=== PATIENT | male | born 1935 | race Caucasian/White ===

== ENCOUNTER 2018-07-18 18:28 | Inpatient (IN) | payer OTHER, MEDICARE ==
--- OUTSIDE RECORDS SUMMARY | 2018-07-18 18:31 | XMS REPORT | Continuity of Care Document ---
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/18/2012 chamber pacemaker 12 [facility] pulse generator Replacement of Active 07/14/20 Problem 07/18/2012 pacemaker pulse 12 [facility] generator Insertion of dual Active 07/14/20 Problem 10/02/2016 chamber pacemaker 12 [facility] pulse generator Replacement of Active 07/14/20 Problem 10/02/2016 pacemaker pulse 12 [facility] generator [place], Active 09/07/19 VFIB, CAD, 12 [facility] BRADYCARDIA Atrial Active Problem 07/18/2012 fibrillation [facility] CAD - Coronary Active Problem 07/18/2012 artery disease [facility] DM - Diabetes Active Problem 07/18/2012 mellitus [facility] HTN - Active Problem 07/18/2012 Hypertension [facility] Hyperlipidemia Active Problem 07/18/2012 [facility] [place] Myocardial Active Problem 07/18/2012 infarction [facility] [place] - Ventricular Active Problem 07/18/2012 tachycardia [facility] Afib Active Problem 10/02/2016 [facility] [place]rial Active Problem 10/02/2016 fibrillation [facility] CAD - Coronary Active Problem 10/02/2016 artery disease [facility] CHF (<span Active Problem 10/02/2016 MH ID="[id number]" [facility] >Confirmed</span> ) Diabetes Active Problem 10/02/2016 [facility] [place] - Diabetes Active Problem 10/02/2016 mellitus [facility] HTN - Active Problem 10/02/2016 Hypertension [facility] Hyperlipidemia Active Problem 10/02/2016 [facility] [place] HLD (<span Resolved Problem 10/02/2016 MH ID="[id number]" [facility] >Confirmed</span> ) HTN (<span Active Problem 10/02/2016 MH ID="[id number]" [facility] >Confirmed</span> ) [place] - Myocardial Active Problem 10/02/2016 infarction [facility] [place] (<span Active Problem 10/02/2016 MH ID="[id number]" [facility] >Confirmed</span> ) [place] - Ventricular Active Problem 10/02/2016 tachycardia [facility] MUSCLE WEAKNESS Active (GENERALIZED) [facility] WEAKNESS Active [facility] [place] FTNG AUTMTC Active DFIBRILLATOR [facility] VENTRICULAR Active MH FIBRILLATION [facility] COR ATH UNSP VSL Active NTV/GRF [facility] PERSISTENT ATRIAL Active FIBRILLATION [facility] Medications Medication Details Route Status Patient Ordering Order Source Instructions Provider Date acetaminophen 325 mg=1 tab, PO, Active 325 mg oral Q4-6H, PRN Pain, 2016 [facility] tablet X 10 day, # 120 tab, 0 Refill(s), given to patient rivaroxaban 20 20 mg=1 tab, PO, Active mg oral tablet QPM, 0 Refill(s) 2016 [facility] Insulin, 4 unit, SUB-Q, Active Aspart, Human Bedtime, PRN 2016 [facility] Blood Glucose Results, 0 Refill(s) aspirin 81 mg 81 mg=1 tab, PO, Active tablet, enteric Daily, 0 2016 [facility] coated Refill(s) captopril 50 mg 50 mg=1 tab, PO, Active oral tablet TID, 0 Refill(s) 2016 [facility] aspirin 81 mg 81 mg, 1 tab, No Longer tablet, enteric Route: PO, Drug Active 2016 [facility] coated form: ECTAB, Daily, Dosing Weight 84.091, kg, Start date: 09/27/16 9:00:00 BLENDER, Duration: 30 day, Stop date: 10/26/16 9:00:00 CSTNotes: Do not crush or chew. (Same As: Ecotrin) Xarelto 20 mg, 1 tab, No Longer Route: PO, Drug Active 2016 [facility] form: TAB, QPM, Dosing Weight 84.091, kg, first dose now, Start date: 09/26/16 19:00:00 BLENDER, Duration: 30 day, Stop date: 10/26/16 17:00:00 CSTNotes: (Same as: Xarelto) Administer with food Insulin, 1 unit, 0.01 mL, No Longer Aspart, Human Route: SUB-Q, Active 2016 [facility] Drug form: SOLN, Bedtime, Dosing Weight 84.091, kg, PRN Blood Glucose Results, Start date: 09/26/16 17:21:00 BLENDER, Duration: 30 day, Stop date: 10/26/16 17:20:00 CSTNotes: Roll in palms of hands gently; Do not shake vigorously. (Same as: NovoLOG) "single patient use only" WASTE: F/P - Black; E - Municipal Trash Bin Stable for 28 days at room temperature. Expires in days from Dat e Glucagon 1 mg, Route: IM, No Longer Drug form: Active 2016 [facility] PDR/INJ, PRN, Dosing Weight 84.091, kg, PRN Blood Glucose Results, Start date: 09/26/16 17:21:00 BLENDER, Duration: 30 day, Stop date: 10/26/16 17:20:00 BLENDER Dextrose 50% 25 gm, 50 mL, No Longer Syringe Route: IVP, Drug Active 2016 [facility] Form: INJ, Dosing Weight 84.091, kg, PRN, PRN Blood Glucose Results, Start date: 09/26/16 17:21:00 BLENDER, Duration: 30 day, Stop date: 10/26/16 17:20:00 BLENDER Minocycline 100 mg, 1 cap, No Longer Route: PO, Drug Active 2016 [facility] form: CAP, [id number], Dosing Weight 84.091, kg, Start date: 09/26/16 13:00:00 BLENDER, Duration: 7 day, Stop date: 10/03/16 1:00:00 CSTNotes: (Same as:Minocin) No milk/antacids/iro n. Vancomycin 1,000 mg, Route: Inactive IVPB, [id number], 2016 [facility] Dosing Weight 84.091, kg, Start date: 09/26/16 5:00:00 BLENDER, Duration: 30 day, Stop date: 10/25/16 17:00:00 CSTNotes: TIME CRITICAL MEDICATION (Same As: Vancocin) Infusion rate 2001 mg: infuse over 2.5 hours MEDICATION WASTE Product Size: 1000 mg Product Wasted: ___ mg digoxin 250 mcg 0.25 mg, 1 tab, No Longer (0.25 mg) oral Route: PO, Drug Active 2016 [facility] tablet form: TAB, [id number], Dosing Weight 84.091, kg, 4 doses., Start date: 09/25/16 21:00:00 BLENDER, Duration: 4 doses or times, Stop date: 09/26/16 21:00:00 CSTNotes: Take on an Empty Stomach (Same as: Lanoxin) Coreg 12.5 mg, Route: Inactive PO, Drug form: 2016 [facility] TAB, Q12H, Dosing Weight 84.091, kg, Start date: 09/25/16 21:00:00 BLENDER, Duration: 30 day, Stop date: 10/25/16 9:00:00 BLENDER digoxin 0.5 mg, 1 tab, Inactive Route: PO, Drug 2016 [facility] form: TAB, Q6Hnow, Start date: 09/25/16 21:00:00 BLENDER, Duration: 4 doses or times, Stop date: 09/26/16 15:00:00 CSTNotes: Take on an Empty Stomach (Same as: Lanoxin) Amiodarone 300 mg, Route: Inactive IV, ONCE, Dosing 2016 [facility] Weight 84.091, kg, Start date: 09/25/16 13:31:00 BLENDER, Stop date: 09/25/16 13:31:00 BLENDER MaxEPA 1 gm, 1 cap, No Longer Route: PO, Drug Active 2016 [facility] form: CAP, Daily, Start date: 09/25/16 9:00:00 BLENDER, Duration: 30 day, Stop date: 10/24/16 9:00:00 CSTNotes: (Same as: MaxEPA, [place] 3 fish oil ) Non-Formulary Drug Protonix 40 mg, 1 tab, No Longer Route: PO, Drug Active 2016 [facility] form: ECTAB, Daily, Start date: 09/25/16 9:00:00 BLENDER, Duration: 30 day, Stop date: 10/24/16 9:00:00 CSTNotes: Tablet should not be chewed or crushed. (Same as: Protonix) Omeprazole 20 mg, Route: PO, No Longer Drug form: DRC, Active 2016 [facility] Daily, Dosing Weight 84.091, kg, Start date: 09/25/16 9:00:00 BLENDER, Duration: 30 day, Stop date: 10/24/16 9:00:00 BLENDER Fish Oil 1,200 mg, Route: No Longer PO, Drug form: Active 2016 [facility] CAP, Daily, Dosing Weight 84.091, kg, Start date: 09/25/16 9:00:00 BLENDER, Duration: 30 day, Stop date: 10/24/16 9:00:00 BLENDER glimepiride 2 mg, 1 tab, No Longer Route: PO, Drug Active 2016 [facility] form: TAB, Breakfast, Dosing Weight 84.091, kg, Start date: 09/25/16 8:00:00 BLENDER, Duration: 30 day, Stop date: 10/24/16 8:00:00 CSTNotes: (Same as: Amaryl) Lovastatin 40 mg, Route: PO, Inactive Drug form: TAB, 2016 [facility] Bedtime, Dosing Weight 84.091, kg, Start date: 09/24/16 21:00:00 BLENDER, Duration: 30 day, Stop date: 10/23/16 21:00:00 BLENDER Lipitor 20 mg, 1 tab, No Longer Route: PO, Drug Active 2016 [facility] form: TAB, Bedtime, Start date: 09/24/16 21:00:00 BLENDER, Duration: 30 day, Stop date: 10/23/16 21:00:00 CSTNotes: (Same As: Lipitor) Lovenox 80 mg, 0.8 mL, No Longer Route: SUB-Q, Active 2016 [facility] Drug form: INJ, [id number], Dosing Weight 84.091, kg, For CrCL Notes: Nurse to ensure documentation of patient education per anticoagulation policy. (Same as: Lovenox) Ranexa 500 mg, 1 tab, No Longer Route: PO, Drug Active 2016 [facility] form: TAB, BID, Dosing Weight 84.091, kg, Start date: 09/24/16 19:38:00 BLENDER, Duration: 30 day, Stop date: 10/24/16 17:00:00 CSTNotes: Same as Ranexa "Do Not Crush" carvedilol 6.25 mg, 1 tab, No Longer Route: PO, Drug Active 2016 [facility] form: TAB, BID, Dosing Weight 84.091, kg, Start date: 09/24/16 19:38:00 BLENDER, Duration: 30 day, Stop date: 10/24/16 17:00:00 CSTNotes: Give with food. (Same As: Coreg) Amiodarone 200 mg, 1 tab, No Longer Route: PO, Drug Active 2016 [facility] form: TAB, BID, Dosing Weight 84.091, kg, Start date: 09/24/16 19:37:00 BLENDER, Duration: 30 day, Stop date: 10/24/16 17:00:00 CSTNotes: (Same as: Cordarone) Captopril 50 mg, 1 tab, No Longer Route: PO, Drug Active 2016 [facility] form: TAB, TID, Dosing Weight 84.091, kg, Start date: 09/24/16 19:37:00 BLENDER, Duration: 30 day, Stop date: 10/24/16 17:00:00 CSTNotes: Give on empty stomach. 1 hour before meal. (Same As: Capoten) Nitroglycerin 0.4 mg, 1 tab, No Longer 0.4 MG Route: SL, Drug Active 2016 [facility] Sublingual form: TAB, Q5Min, Tablet Dosing Weight 84.091, kg, PRN Chest Pain, Start date: 09/24/16 19:18:00 BLENDER, Duration: 30 day, Stop date: 10/24/16 19:17:00 CSTNotes: (Same as:Nitroquick, Nitrostat) "Do Not Crush" Sublingual tablet glimepiride 2 2 mg=1 tab, PO, No Longer mg oral tablet Breakfast, # 30 Active 2016 [facility] tab, 0 Refill(s) Nitroglycerin 0.4 mg=1 tab, SL, Active 0.4 MG Q5Min, PRN Chest 2016 [facility] Sublingual pain, Give up to Tablet 3 doses. Call 911 if pain persists., # 100 tab, 0 Refill(s) sotalol 240 mg 240 mg=1 tab, PO, Inactive oral tablet Daily, # 180 tab, 2017 [facility] 0 Refill(s) lovastatin 40 40 mg=1 tab, PO, Active mg oral tablet Bedtime, # 30 2017 [facility] tab, 0 Refill(s) Ranexa 500 mg, PO, BID, Active 0 Refill(s) 2016 [facility] captopril 50 mg 50 mg=1 tab, PO, No Longer oral tablet TID, # 60 tab, 0 Active 2016 [facility] Refill(s) Fish Oil 1200 1,200 mg=1 cap, Active mg oral capsule PO, Daily, 0 2017 [facility] Refill(s) rivaroxaban 20 20 mg=1 tab, PO, Inactive MG Oral Tablet QPM, # 30 tab, 3 2017 [facility] [Xarelto] Refill(s) omeprazole 20 20 mg=1 cap, PO, Active mg oral delayed Daily, # 30 cap, 2017 [facility] release capsule 0 Refill(s) carvedilol 6.25 6.25 mg=1 tab, Active mg oral tablet PO, BID, # 180 2017 [facility] tab, 0 Refill(s) Morphine 2 mg, 0.5 mL, No Longer Route: IVP, Drug Active 2016 [facility] form: SOLN, Q4H, Dosing Weight 98.182, kg, PRN Pain Score 7-10, Start date: 09/24/16 0:39:00 BLENDER, Duration: 30 day, Stop date: 10/24/16 0:38:00 CSTNotes: (Same as:MORPhine Sulfate) Docusate 100 mg, 1 cap, No Longer Route: PO, Drug Active 2016 [facility] form: CAP, BID, Dosing Weight 98.182, kg, PRN Constipation, Start date: 09/24/16 0:39:00 BLENDER, Duration: 30 day, Stop date: 10/24/16 0:38:00 CSTNotes: (Same as: Colace) (Do Not Crush) Ondansetron 4 mg, 2 mL, No Longer Route: IVP, Drug Active 2016 [facility] form: INJ, Q6H, Dosing Weight 98.182, kg, PRN Nausea & Vomiting, Start date: 09/24/16 0:39:00 BLENDER, Duration: 30 day, Stop date: 10/24/16 0:38:00 CSTNotes: (Same as: Olegario) MEDICATION WASTE Product Size: 4 mg Product Wasted: ___ mg Keflex 500 mg, 1 cap, PO No Longer Jalal Route: PO, Drug Active 2011 [facility] form: CAP, [id number], Start date: 07/15/12 14:00:00, Duration: 30 day, Stop date: 08/14/12 8:00:00 MaxEPA 1 gm, 1 cap, PO No Longer Jalal Route: PO, Drug Active 2011 [facility] form: CAP, BID, Start date: 07/15/12 9:00:00, Duration: 30 day, Stop date: 08/13/12 17:00:00 Dulcolax 5 mg, 1 tab, PO No Longer Jalal Laxative Route: PO, Drug Active 2011 [facility] form: ECTAB, Daily, Start date: 07/15/12 9:00:00, Duration: 30 day, Stop date: 08/13/12 9:00:00 docusate sodium 100 mg, 1 cap, PO No Longer Jalal 100 mg oral Route: PO, Drug Active 2011 [facility] capsule form: CAP, BID, Start date: 07/15/12 9:00:00, Duration: 30 day, Stop date: 08/13/12 17:00:00 Restoril 7.5 mg, 1 cap, PO No Longer Jalal Route: PO, Drug Active 2011 [facility] form: CAP, Bedtime, PRN Sleep, Start date: 07/14/12 21:00:00, Duration: 30 day, Stop date: 08/13/12 20:59:00 Ranexa 500 mg 500 mg, 1 tab, PO No Longer Jalal oral tablet, Route: PO, Drug Active 2011 [facility] extended form: TAB, BID, release Start date: 07/14/12 17:00:00, Duration: 30 day, Stop date: 08/13/12 9:00:00 Lipitor 20 mg, 1 tab, PO No Longer Jalal Route: PO, Drug Active 2011 [facility] form: TAB, QPM, Start date: 07/14/12 17:00:00, Duration: 30 day, Stop date: 08/12/12 17:00:00 Betapace 240 mg, 3 tab, PO No Longer Jalal Route: PO, Drug Active 2011 [facility] form: TAB, BID, Start date: 07/14/12 17:00:00, Duration: 30 day, Stop date: 08/13/12 9:00:00 Protonix 40 mg, 1 tab, PO No Longer Jalal Route: PO, Drug Active 2011 [facility] form: ECTAB, Before Dinner, Start date: 07/14/12 16:30:00, Duration: 30 day, Stop date: 08/12/12 16:30:00 cefazolin + 1 gm, Route: IVPB No Longer Jalal Sodium Chloride IVPB, [id number], Active 2011 [facility] 0.9% IV 100 mL Start date: 07/14/12 16:00:00, Duration: 3 doses or times, Stop date: 07/15/12 8:00:00 aspirin 81 mg 81 mg, 1 tab, CHEW No Longer Jalal tablet, Route: CHEW, Drug Active 2011 [facility] chewable form: CHEWTAB, Daily, Start date: 07/14/12 13:45:00, Duration: 30 day, Stop date: 08/13/12 9:00:00 captopril 50 mg, 2 tab, PO No Longer Jalal Route: PO, Drug Active 2011 [facility] form: TAB, TID, Start date: 07/14/12 13:45:00, Duration: 30 day, Stop date: 08/13/12 13:00:00 Amaryl 1 mg, 1 tab, PO No Longer Jalal Route: PO, Drug Active 2011 [facility] form: TAB, Daily, Start date: 07/14/12 13:44:00, Duration: 30 day, Stop date: 08/13/12 9:00:00 morphine 2 mg, 0.4 mL, IVP No Longer Jalal Sulfate Route: IVP, Drug Active 2011 [facility] form: INJ, Q3H, PRN Pain Score 7-10, Start date: 07/14/12 13:39:00, Duration: 30 day, Stop date: 08/13/12 13:38:00 acetaminophen-h 2 tab, Route: PO, PO No Longer Jalal ydrocodone 325 Drug Form: TAB, Active 2011 [facility] mg-5 mg oral Q4H, PRN Pain tablet Score 4-6, Start date: 07/14/12 13:38:00, Duration: 30 day, Stop date: 08/13/12 13:37:00 acetaminophen 1,000 mg, 2 tab, PO No Longer Jalal Route: PO, Drug Active 2011 [facility] form: TAB, Q4H, PRN Pain Score 1-3, Start date: 07/14/12 13:37:00, Duration: 30 day, Stop date: 08/13/12 13:36:00 Zofran 4 mg, 2 mL, IVP No Longer Jalal Route: IVP, Drug Active 2011 [facility] form: INJ, Q4H, PRN Nausea, Start date: 07/14/12 13:37:00, Duration: 30 day, Stop date: 08/13/12 13:36:00 Sodium Chloride 250 mL, Route: IVPB No Longer Jalal 0.9% IV IVPB, Start date: Active 2011 [facility] 07/14/12 13:35:00, Duration: 30 day, Stop date: 08/13/12 13:34:00, PRN Line Flush BD Normal 10 mL, Route: IVP No Longer [place]al Saline Flush IVP, Drug Form: Active 2011 [facility] INJ, PRN, PRN Line Flush, Start date: 07/14/12 13:35:00, Duration: 30 day, Stop date: 08/13/12 13:34:00 Allergies, Adverse Reactions, Alerts Substance Category Reaction Severity Reaction Status Date Comments Source type Reported NKFA Assertion Drug Active allergy [facility] sulfa drugs Assertion N/V, Drug Active Allergy to allergy [facility] sulfa drugs Immunizations Immunization Date Site Status Last Comments Source Given Updated pneumococcal Left completed [place] [facility] [place]-valent 7 Deltoid s vaccine Results Order Name Results Value Reference Date Interpretation Comments Source Range Chest Chest 1view Patient Name: GARFIELD ABREU 09/25 - 1view DX DX /2016 - [facility] : 1935; Age: 81 years Male MR: [id number] Read by: Arjun You MD Dictated Date/time: 09/25/16 20:51 Electronically Signed by: Arjun You MD 09/25/16 20:54 FINAL REPORT Study: Chest 1view DX Order Time: 09/25/2016 8:24 PM BLENDER Clinical Indication: Line Placement. COMPARISON: September 2016. July 2012. FINDINGS: Views: 1 LUNGS: Left cardiac device wires are intact. Poststernotomy. There is normal lung volume. Stable right lower lobe interstitial infiltrate. Bilateral calcified granulomas. Small right pleural effusion. There is no pneumothorax. The pulmonary vasculature is normal. Left upper hemithorax soft tissue raul. MEDIASTINUM: The cardiac silhouette is enlarged. The trachea is midline. BONES: There are no clinically significant osseous abnormalities noted. IMPRESSION: 1. Enlarged cardiac silhouette. 2. Stable right lower lobe interstitial infiltrate. Small right pleural effusion. SL: AYDE CARDIAC CK MB Index 2.9 0.0 - 2.5 09/24 MH ENZYMES /2016 [facility] CARDIAC Troponin-I null 0.00 - 09/24 ENZYMES 0.40 [facility] CARDIAC CK MB 0.8 ng/mL 0.5 - 3.6 09/24 MH ENZYMES /2016 [facility] CARDIAC Total CK 28 unit/L - 09/24 MH ENZYMES /2016 [facility] CARDIAC Total CK 23 unit/L - 09/24 MH ENZYMES [facility] CARDIAC Troponin-I 0.02 ng/mL 0.00 - 09/24 MH ENZYMES 0.40 /2017 [facility] CHEM PANEL eGFR 46 09/24 Result Comment: The eGFR is calculated using the CKD-EPI formula. In most young, healthy individuals the eGFR will be >90 mL/ min/1.73m2. The eGFR declines with age. An eGFR of 60-89 may be normal in MH mL/min/1. some populations, particularly the elderly, for whom the CKD-EPI formula has not been extensively validated. Use of the eGFR is not recommended in the following populations: [facility] 3m2 Individuals with unstable creatinine concentrations, including patients and those with serious co-morbid conditions. Patients with extremes in muscle mass or diet. The data above are obtained from the National Kidney Disease Education Program (NKDEP) which additionally recommends that when the eGFR is used in patients with extremes of body mass index for purposes of drug dosing, the eGFR should be multiplied by the estimated BMI. CHEM PANEL Calcium Lvl 9.5 mg/dL 8.5 - 10.5 09/24 [facility] CHEM PANEL AGAP 11.1 meq/L 10.0 - 09/24 MH 20.0 [facility] CHEM PANEL BUN 25 mg/dL 7 - 22 09/24 [facility] CHEM PANEL Creatinine 1.40 mg/dL 0.50 - 09/24 MH Lvl 1.40 [facility] CHEM PANEL Glucose Lvl 63 mg/dL 70 - 99 09/24 [facility] CHEM PANEL Potassium 4.1 meq/L 3.5 - 5.1 09/24 MH Lvl /2016 [facility] CHEM PANEL Chloride Lvl 102 meq/L 95 - 109 09/24 [facility] CHEM PANEL CO2 29 meq/L 24 - 32 09/24 [facility] CHEM PANEL Sodium Lvl 138 meq/L 135 - 145 09/24 [facility] HEMATOLOGY WBC 8.2 K/CMM 3.7 - 10.4 09/24 [facility] HEMATOLOGY Hgb 12.1 g/dL 14.0 - 09/24 18. [facility] HEMATOLOGY RBC 3.98 M/CMM 4.70 - 09/24 MH 6.10 [facility] HEMATOLOGY Hct 36.6 % 42.0 - 09/24 MH 54.0 [facility] HEMATOLOGY MCV 91.9 fL 80.0 - 09/24 94.0 [facility] HEMATOLOGY MCH 30.5 pg 27.0 - 09/24 MH 31.0 [facility] HEMATOLOGY MCHC 33.1 g/dL 32.0 - 09/24 MH 36.0 [facility] HEMATOLOGY RDW 15.7 % 11.5 - 09/24 MH 14. [facility] HEMATOLOGY Platelet 232 K/CMM 133 - 450 09/24 [facility] HEMATOLOGY MPV 7.5 fL 7.4 - 10.4 09/24 [facility] HEMATOLOGY Segs 76.0 % 45.0 - 09/24 MH 75.0 [facility] HEMATOLOGY Lymphocytes 14.1 % 20.0 - 09/24 MH 40.0 /2016 [facility] HEMATOLOGY Monocytes 7.7 % 2.0 - 12.0 09/24 [facility] HEMATOLOGY Basophils 0.4 % 0.0 - 1.0 09/24 [facility] HEMATOLOGY Lymphocytes 1.2 K/CMM 1.0 - 5.5 09/24 MH # /2017 [facility] HEMATOLOGY Eosinophils 1.8 % 0.0 - 4.0 09/24 [facility] HEMATOLOGY Segs-Bands # 6.2 K/CMM 1.5 - 8.1 09/24 [facility] Monocytes # 0.6 K/CMM 0.0 - 0.8 09/24 [facility] HEMATOLOGY Eosinophils 0.1 K/CMM 0.0 - 0.5 09/24 # /2016 [facility] Knee 1-2 Knee 1-2 Study: Portable bilateral knees, 2 views 09/24 - Views Views [facility] Bilateral Bilateral DX Clinical Indication: Bilateral knee pain DX Comparison: None Read by: Kang Reynoso MD Dictated Date/time: 09/24/16 08:47 Electronically Signed by: Kang Reynoso MD 09/24/16 08:49 FINAL REPORT FINDINGS: AP and lateral images were obtained. Right knee, 2 views: There is generalized osteopenia. No acute abnormality is seen. Joint space is narrowed. Minor degenerative changes involve the patellofemoral articulation. No joint effusion is noted. Left knee, 2 views: There is generalized osteopenia. The joint space is narrowed. Patellofemoral articulation is not remarkable. No joint effusion is noted. IMPRESSION: Osteoarthritis as described. No acute abnormality. SL: [id number] Chest Chest 1view Study: Chest 1view DX portable 09/24/2016 0310 hours - 1view DX DX /2016 - [facility] Clinical Indication: Chest pain; Read by: Kang Reynoso MD Dictated Date/time: 09/24/16 08:42 Comparison: Chest 07/14/2012 Electronically Signed by: Kang Reynoso MD 09/24/16 08:43 FINAL REPORT FINDINGS: The cardiac silhouette is moderately enlarged, post sternotomy. Intracardiac devices terminate within the right heart. Aortic atherosclerosis is noted. The lungs are incompletely inflated and demonstrate interstitial scarring. There are numerous tiny calcified granulomas. No lobar pulmonary consolidation, vascular congestion or significant pleural effusion is seen. SL: [id number] BEDSIDE Gluc POC 136 mg/dL 70 - 99 07/14 HI 1Interpretive GLUCOSE Lifscn Data: [facility] TESTING Upper Reportable Limit: 200 mg/dL. BEDSIDE Comment1 Notify 07/14 NA GLUCOSE RN/ /2011 [facility] TESTING BEDSIDE Gluc POC 117 mg/dL 70 - 99 07/14 HI 2Interpretive GLUCOSE Lifscn /2011 Data: [facility] TESTING Upper Reportable Limit: 200 mg/dL. Vital Signs Vital Sign Value Date Comments Source Temperature Oral (F) 98 F 09/29/2016 [facility] [place] Rate 81 09[place]29/2016 [facility] [place] Respitory Rate 16 09/29/2016 [facility] [place] Systolic (mm Hg) 95 09/29/2016 [facility] [place] Diastolic (mm Hg) 66 09/29/2016 [facility] [place] Rate 16 09/29/2016 [facility] [place] Systolic (mm Hg) 127 09/29/2016 [facility] [place] Diastolic (mm Hg[place] 75 09/29/2016 [facility] [place] Heart Rate 81 09/29/2016 [facility] [place] Temperature Oral (F) 97.4 F 09/29/2016 [facility] [place] Rate 51 09/29/2016 [facility] [place] Temperature Oral (F) 98.1 F 09/29/2016 [facility] [place] Respitory Rate 16 09/29/2016 [facility] [place] Systolic (mm Hg) 107 09/29/2016 [facility] [place] Diastolic (mm Hg) 56 09/29/2016 [facility] [place] Weight 84.091 09/24/2016 [facility] [place] BMI Calculated 27.38 09/24/2016 [facility] [place] Height 175.26 cm 09/24/2016 [facility] [place] Heart Rate 59 07/16/2012 [facility] [place] Temperature Oral (F) 98.1 F 07/16/2012 [facility] [place] Diastolic (mm Hg) 74 07/16/2012 [facility] [place] Systolic (mm Hg) 133 07/16/2012 [facility] [place] Respitory Rate 18 07/16/2012 [facility] [place] Heart Rate 60 07/16/2012 [facility] [place] Respitory Rate 18 07/16/2012 [facility] [place] Temperature Oral (F) 98.1 F 07/16/2012 [facility] [place] Diastolic (mm Hg) 66 07/16/2012 [facility] [place] Systolic (mm Hg[place] 118 07/16/2012 [facility] [place] Respitory Rate 18 07/16/2012 [facility] [place] Systolic (mm Hg) 128 07/16/2012 [facility] [place] Temperature Oral (F) 97.8 F 07/16/2012 [facility] [place] Diastolic (mm Hg) 70 07/16/2012 [facility] [place] Heart Rate 59 07/16/2012 [facility] [place] Weight 98.182 07/14/2012 [facility] [place] 175.26 cm 07/14/2012 [facility] [place] Location Encounter Encounter Reason Attending ADM DC Status Source Details Type Number For Visit Provider Date Date JYOTI [id number] END OF MARINA 07/14 07/16 [place] [facility] [place] [place]AL /2011 [facility] VFIB, t CAD, BRADYCARD [place] [facility] Inpatient [id number] Vincentia 09/25 09/30 Frank Nwadike /2016 [facility] Procedures Procedure Code Date Perfomer Comments Source Appendectomy [id number] [facility] [place] CABG - Coronary [id number] [facility] [place] artery bypass graft Cataract surgery [id number] [facility] [place] [place]plantation of [id number] [facility] [place] cardioverter/defib rillator, total system (AICD) Rotator cuff [id number] [facility] [place] repair
--- OUTSIDE RECORDS SUMMARY | 2018-07-18 18:32 | XMS REPORT | Summary of Care ---
:1935 Author Organization [facility] Address [address] [place] [id number]- Encounter HQ Juan J(MALIK) [id number] Date(s): 09/25/16 - 09/29/[address] [address]- Discharge Disposition: Home or Self Care Attending Physician: Jessica Hassan MD Admitting Physician: Jessica Hassan MD Vital Signs Most recent to oldest 1 2 3 [Reference Range]: Height 175.26 cm (09/24/16 7:33 AM) Current Weight 82.472 kg 77.443 kg (09/26/16 4:00 AM) (09/25/16 4:00 AM) Temperature Oral [96.4-99.1 98 DegF 97.4 DegF 98.1 DegF DegF] (09/29/16 3:47 PM) (09/29/16 11:48 AM) (09/29/16 7:48 AM) Blood Pressure [90-140/60-90 95/66 mmHg 127/75 mmHg 107/56 mmHg mmHg] (09/29/16 3:47 PM) (09/29/16 11:48 AM) (09/29/16 7:48 AM) Respiratory Rate [14-20 BRMIN] 16 BRMIN 16 BRMIN 16 BRMIN (09/29/16 3:47 PM) (09/29/16 11:48 AM) (09/29/16 7:48 AM) Peripheral Pulse Rate [60-100 81 bpm 81 bpm 51 bpm bpm] (09/29/16 3:47 PM) (09/29/16 11:48 AM) *LOW* (09/29/16 7:48 AM) Weight 84.091 kg (09/24/16 7:33 AM) Body Mass Index 27.38 m2 (09/24/16 7:33 AM) Problem List Condition Effective Dates Status Health Status Informant Afib(Confirmed) Active Atrial fibrillation(Confirmed) Active CAD - Coronary artery Active disease(Confirmed) CHF (congestive heart Active failure)(Confirmed) Diabetes(Confirmed) Active DM - Diabetes mellitus(Confirmed) Active HTN - Hypertension(Confirmed) Active Hyperlipidemia(Confirmed) Active HLD (hyperlipidemia)(Confirmed) Resolved HTN (hypertension)(Confirmed) Active 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(Confirmed) ND - Myocardial Active infarction(Confirmed) ND (myocardial Active infarction)(Confirmed) Replacement of pacemaker pulse 07/14/12 Active generator(Confirmed) VT - Ventricular Active tachycardia(Confirmed) Allergies, Adverse Reactions, Alerts Substance Reaction Severity Status NKFA Active sulfa drugs N/V Active Allergy to sulfa drugs Medications acetaminophen 325 mg oral tablet 325 mg=1 tab, PO, Q4-6H, PRN Pain, X 10 day, # 120 tab, 0 Refill(s), given to patient Start Date: 09/29/16 Stop Date: 10/09/16 Status: OrderedAMIODarone 300 mg, Route: IV, ONCE, Dosing Weight 84.091, kg, Start date: 09/25/16 13:31: 00 [employer], Stop date: 09/25/16 13:31:00 [employer] Start Date: 09/25/16 Stop Date: 09/25/16 Status: CompletedAMIODarone 200 mg, 1 tab, Route: PO, Drug form: TAB, BID, Dosing Weight 84.091, kg, Start date: 09/24/16 19:37:00 [employer], Duration: 30 day, Stop date: 10/24/16 17:00:00 [employer] Notes: (Same as: Cordarone) Start Date: 09/24/16 Stop Date: 09/25/16 Status: Discontinuedaspirin 81 mg tablet, enteric coated 81 mg, 1 tab, Route: PO, Drug form: ECTAB, Daily, Dosing Weight 84.091, kg, Start date: 09/27/16 9:00:00 [employer], Duration: 30 day, Stop date: 10/26/16 9:00:00 [employer] Notes: Do not crush or chew.(Same As: Ecotrin) Start Date: 09/27/16 Stop Date: 09/29/16 Status: Discontinuedaspirin 81 mg tablet, enteric coated 81 mg=1 tab, PO, Daily, 0 Refill(s) Start Date: 09/29/16 Status: Orderedcaptopril 50 mg, 1 tab, Route: PO, Drug form: TAB, TID, Dosing Weight 84.091, kg, Start date: 09/24/16 19:37:00 [employer], Duration: 30 day, Stop date: 10/24/16 17:00:00 [employer] Notes: Give on empty stomach. 1 hour before meal. (Same As: Capoten) Start Date: 09/24/16 Stop Date: 09/29/16 Status: Discontinuedcaptopril 50 mg oral tablet 50 mg=1 tab, PO, TID, 0 Refill(s) Start Date: 09/29/16 Status: Orderedcaptopril 50 mg oral tablet 50 mg=1 tab, PO, TID, # 60 tab, 0 Refill(s) Start Date: 09/24/16 Stop Date: 09/29/16 Status: Discontinuedcarvedilol 6.25 mg, 1 tab, Route: PO, Drug form: TAB, BID, Dosing Weight 84.091, kg, Start date: 09/24/16 19:38:00 [employer], Duration: 30 day, Stop date: 10/24/16 17:00:00 [employer] Notes: Give with food. (Same As: Coreg) Start Date: 09/24/16 Stop Date: 09/29/16 Status: Discontinuedcarvedilol 6.25 mg oral tablet 6.25 mg=1 tab, PO, BID, # 180 tab, 0 Refill(s) Start Date: 09/24/16 Status: OrderedCoreg 12.5 mg, Route: PO, Drug form: TAB, Q12H, Dosing Weight 84.091, kg, Start date: 09/25/16 21:00:00 [employer], Duration: 30 day, Stop date: 10/25/16 9:00:00 [employer] Start Date: 09/25/16 Stop Date: 09/25/16 Status: DeletedDextrose 50% Syringe 25 gm, 50 mL, Route: IVP, Drug Form: INJ, Dosing Weight 84.091, kg, PRN, PRN Blood Glucose Results, Start date: 09/26/16 17:21:00 [employer], Duration: 30 day, Stop date: 10/26/16 17:20:00 [employer] Start Date: 09/26/16 Stop Date: 09/29/16 Status: DiscontinuedDextrose 50% Syringe 12.5 gm, 25 mL, Route: IVP, Drug Form: INJ, Dosing Weight 84.091, kg, PRN, PRN Blood Glucose Results, Start date: 09/26/16 17:21:00 [employer], Duration: 30 day, Stop date: 10/26/16 17:20:00 [employer] Start Date: 09/26/16 Stop Date: 09/29/16 Status: Discontinueddigoxin 0.5 mg, 1 tab, Route: PO, Drug form: TAB, Q6Hnow, Start date: 09/25/16 21:00:00 [employer], Duration: 4 doses or times, Stop date: 09/26/16 15:00:00 [employer] Notes: Take on an Empty Stomach (Same as: Lanoxin) Start Date: 09/25/16 Stop Date: 09/25/16 Status: Deleteddigoxin 250 mcg (0.25 mg) oral tablet 0.25 mg, 1 tab, Route: PO, Drug form: TAB, ABXQ6H, Dosing Weight 84.091, kg, 4 doses., Start date: 09/25/16 21:00:00 [employer], Duration: 4 doses or times, Stop date : 09/26/16 21:00:00 [employer] Notes: Take on an Empty Stomach (Same as: Lanoxin) Start Date: 09/25/16 Stop Date: 09/26/16 Status: Completeddocusate 100 mg, 1 cap, Route: PO, Drug form: CAP, BID, Dosing Weight 98.182, kg, PRN Constipation, Start date: 09/24/16 0:39:00 [employer], Duration: 30 day, Stop date: 0:38:00 [employer] Notes: (Same as: Colace) (Do Not Crush) Start Date: 09/24/16 Stop Date: 09/29/16 Status: DiscontinuedFish Oil 1,200 mg, Route: PO, Drug form: CAP, Daily, Dosing Weight 84.091, kg, Start date : 09/25/16 9:00:00 [employer], Duration: 30 day, Stop date: 10/24/16 9:00:00 [employer] Start Date: 09/25/16 Stop Date: 09/24/16 Status: DeletedFish Oil 1,200 mg, Route: PO, Drug form: CAP, Daily, Dosing Weight 84.091, kg, Start date : 09/25/16 9:00:00 [employer], Duration: 30 day, Stop date: 10/24/16 9:00:00 [employer] Start Date: 09/25/16 Stop Date: 09/24/16 Status: DeletedFish Oil 1200 mg oral capsule 1,200 mg=1 cap, PO, Daily, 0 Refill(s) Start Date: 09/24/16 Status: Orderedglimepiride 2 mg, 1 tab, Route: PO, Drug form: TAB, Breakfast, Dosing Weight 84.091, kg, Start date: 09/25/16 8:00:00 [employer], Duration: 30 day, Stop date: 10/24/16 8:00:00 [employer] Notes: (Same as: Amaryl) Start Date: 09/25/16 Stop Date: 09/27/16 Status: Discontinuedglimepiride 2 mg oral tablet 2 mg=1 tab, PO, Breakfast, # 30 tab, 0 Refill(s) Start Date: 09/24/16 Stop Date: 09/29/16 Status: Discontinuedglucagon 1 mg, Route: IM, Drug form: PDR/INJ, PRN, Dosing Weight 84.091, kg, PRN Blood Glucose Results, Startdate: 09/26/16 17:21:00 [employer], Duration: 30 day, Stop date: 10/26/16 17:20:00 [employer] Start Date: 09/26/16 Stop Date: 09/29/16 Status: Discontinuedinsulin aspart 4 unit, SUB-Q, Bedtime, PRN Blood Glucose Results, 0 Refill(s) Start Date: 09/29/16 Status: Orderedinsulin aspart 3 unit, SUB-Q, Bedtime, PRN Blood Glucose Results, 0 Refill(s) Start Date: 09/29/16 Status: Orderedinsulin aspart 2 unit, SUB-Q, Bedtime, PRN Blood Glucose Results, 0 Refill(s) Start Date: 09/29/16 Status: Orderedinsulin aspart 1 unit, SUB-Q, Bedtime, PRN Blood Glucose Results, 0 Refill(s) Start Date: 09/29/16 Status: Orderedinsulin aspart 10 unit, SUB-Q, TID-Before Meals, PRN Blood Glucose Results, 0 Refill(s) Start Date: 09/29/16 Status: Orderedinsulin aspart 8 unit, SUB-Q, TID-Before Meals, PRN Blood Glucose Results, 0 Refill(s) Start Date: 09/29/16 Status: Orderedinsulin aspart 6 unit, SUB-Q, TID-Before Meals, PRN Blood Glucose Results, 0 Refill(s) Start Date: 09/29/16 Status: Orderedinsulin aspart 4 unit, SUB-Q, TID-Before Meals, PRN Blood Glucose Results, 0 Refill(s) Start Date: 09/29/16 Status: Orderedinsulin aspart 2 unit, SUB-Q, TID-Before Meals, PRN Blood Glucose Results, 0 Refill(s) Start Date: 09/29/16 Status: Orderedinsulin aspart 1 unit, 0.01 mL, Route: SUB-Q, Drug form: SOLN, Bedtime, Dosing Weight 84.091, kg, PRN Blood GlucoseResults, Start date: 09/26/16 17:21:00 [employer], Duration: 30 day, Stop date: 10/26/16 17:20:00 [employer] Notes: Roll in palms of hands gently; Do not shake vigorously. (Same as: Architexa)"single patient use only"WASTE: F/P - Black; E - Municipal Trash Bin Stable for 28 days at room temperature.Expires in days from Date Start Date: 09/26/16 Stop Date: 09/29/16 Status: Discontinuedinsulin aspart 2 unit, 0.02 mL, Route: SUB-Q, Drug form: SOLN, Bedtime, Dosing Weight 84.091, kg, PRN Blood GlucoseResults, Start date: 09/26/16 17:21:00 [employer], Duration: 30 day, Stop date: 10/26/16 17:20:00 [employer] Notes: Roll in palms of hands gently; Do not shake vigorously. (Same as: NovoLOG)"single patient use only"WASTE: F/P - Black; E - Municipal Trash Bin Stable for 28 days at room temperature.Expires in days from Date Start Date: 09/26/16 Stop Date: 09/29/16 Status: Discontinuedinsulin aspart 3 unit, 0.03 mL, Route: SUB-Q, Drug form: SOLN, Bedtime, Dosing Weight 84.091, kg, PRN Blood GlucoseResults, Start date: 09/26/16 17:21:00 [employer], Duration: 30 day, Stop date: 10/26/16 17:20:00 [employer] Notes: Roll in palms of hands gently; Do not shake vigorously. (Same as: Architexa)"single patient use only"WASTE: F/P - Black; E - Municipal Trash Bin Stable for 28 days at room temperature.Expires in days from Date Start Date: 09/26/16 Stop Date: 09/29/16 Status: Discontinuedinsulin aspart 4 unit, 0.04 mL, Route: SUB-Q, Drug form: SOLN, Bedtime, Dosing Weight 84.091, kg, PRN Blood GlucoseResults, Start date: 09/26/16 17:21:00 [employer], Duration: 30 day, Stop date: 10/26/16 17:20:00 [employer] Notes: Roll in palms of hands gently; Do not shake vigorously. (Same as: Architexa)"single patient use only"WASTE: F/P - Black; E - Municipal Trash Bin Stable for 28 days at room temperature.Expires in days from Date Start Date: 09/26/16 Stop Date: 09/29/16 Status: Discontinuedinsulin aspart 8 unit, 0.08 mL, Route: SUB-Q, Drug form: SOLN, TID-Before Meals, Dosing Weight 84.091, kg, PRN Blood Glucose Results, Start date: 09/26/16 17:21:00 [employer], Duration: 30 day, Stop date: 10/26/16 17:20:00 [employer] Notes: Roll in palms of hands gently; Do not shake vigorously. (Same as: NovoLOG)"single patient use only"WASTE: F/P - Black; E - Municipal Trash Bin Stable for 28 days at room temperature.Expires in days from Date Start Date: 09/26/16 Stop Date: 09/29/16 Status: Discontinuedinsulin aspart 2 unit, 0.02 mL, Route: SUB-Q, Drug form: SOLN, TID-Before Meals, Dosing Weight 84.091, kg, PRN Blood Glucose Results, Start date: 09/26/16 17:21:00 [employer], Duration: 30 day, Stop date: 10/26/16 17:20:00 [employer] Notes: Roll in palms of hands gently; Do not shake vigorously. (Same as: Architexa)"single patient use only"WASTE: F/P - Black; E - Municipal Trash Bin Stable for 28 days at room temperature.Expires in days from Date Start Date: 09/26/16 Stop Date: 09/29/16 Status: Discontinuedinsulin aspart 6 unit, 0.06 mL, Route: SUB-Q, Drug form: SOLN, TID-Before Meals, Dosing Weight 84.091, kg, PRN Blood Glucose Results, Start date: 09/26/16 17:21:00 [employer], Duration: 30 day, Stop date: 10/26/16 17:20:00 [employer] Notes: Roll in palms of hands gently; Do not shake vigorously. (Same as: Architexa)"single patient use only"WASTE: F/P - Black; E - Municipal Trash Bin Stable for 28 days at room temperature.Expires in days from Date Start Date: 09/26/16 Stop Date: 09/29/16 Status: Discontinuedinsulin aspart 4 unit, 0.04 mL, Route: SUB-Q, Drug form: SOLN, TID-Before Meals, Dosing Weight 84.091, kg, PRN Blood Glucose Results, Start date: 09/26/16 17:21:00 [employer], Duration: 30 day, Stop date: 10/26/16 17:20:00 [employer] Notes: Roll in palms of hands gently; Do not shake vigorously. (Same as: NovoLOG)"single patient use only"WASTE: F/P - Black; E - Municipal Trash Bin Stable for 28 days at room temperature.Expires in days from Date Start Date: 09/26/16 Stop Date: 09/29/16 Status: Discontinuedinsulin aspart 10 unit, 0.1 mL, Route: SUB-Q, Drug form: SOLN, TID-Before Meals, Dosing Weight 84.091, kg, PRN Blood Glucose Results, Start date: 09/26/16 17:21:00 [employer], Duration: 30 day, Stop date: 10/26/16 17:20:00 [employer] Notes: Roll in palms of hands gently; Do not shake vigorously. (Same as: NovoLOG)"single patient use only"WASTE: F/P - Black; E - Municipal Trash Bin Stable for 28 days at room temperature.Expires in days from Date Start Date: 09/26/16 Stop Date: 09/29/16 Status: DiscontinuedLipitor 20 mg, 1 tab, Route: PO, Drug form: TAB, Bedtime, Start date: 09/24/16 21:00:00 [employer], Duration: 30 day, Stop date: 10/23/16 21:00:00 [employer] Notes: (Same As: Lipitor) Start Date: 09/24/16 Stop Date: 09/29/16 Status: Discontinuedlovastatin 40 mg, Route: PO, Drug form: TAB, Bedtime, Dosing Weight 84.091, kg, Start date : 09/24/16 21:00:00 [employer], Duration: 30 day, Stop date: 10/23/16 21:00:00 [employer] Start Date: 09/24/16 Stop Date: 09/24/16 Status: Deletedlovastatin 40 mg, Route: PO, Drug form: TAB, Bedtime, Dosing Weight 84.091, kg, Start date : 09/24/16 21:00:00 [employer], Duration: 30 day, Stop date: 10/23/16 21:00:00 [employer] Start Date: 09/24/16 Stop Date: 09/24/16 Status: Deletedlovastatin 40 mg oral tablet 40 mg=1 tab, PO, Bedtime, # 30 tab, 0 Refill(s) Start Date: 09/24/16 Status: OrderedLovenox 80 mg, 0.8 mL, Route: SUB-Q, Drug form: INJ, [id number], Dosing Weight 84.091, kg , For CrCL <30mL/min, Start date: 09/24/16 20:00:00 [employer], Duration: 30 day, Stop date: 10/23/16 20:00:00 [employer] Notes: Nurse to ensure documentation of patient education per anticoagulation policy. (Same as: Lovenox) Start Date: 09/24/16 Stop Date: 09/26/16 Status: DiscontinuedMaxEPA 1 gm, 1 cap, Route: PO, Drug form: CAP, Daily, Start date: 09/25/16 9:00:00 [employer] , Duration: 30 day, Stop date: 10/24/16 9:00:00 [employer] Notes: (Same as: MaxEPA, [place] 3 fish oil )Non-Formulary Drug Start Date: 09/25/16 Stop Date: 09/29/16 Status: Discontinuedminocycline 100 mg, 1 cap, Route: PO, Drug form: CAP, [id number], Dosing Weight 84.091, kg, Start date: 09/26/16 13:00:00 [employer], Duration: 7 day, Stop date: 10/03/16 1:00:00 [employer] Notes: (Same as:Minocin) No milk/antacids/iron. Start Date: 09/26/16 Stop Date: 09/29/16 Status: Discontinuedmorphine Sulfate 2 mg, 0.5 mL, Route: IVP, Drug form: SOLN, Q4H, Dosing Weight 98.182, kg, PRN Pain Score 7-10, Startdate: 09/24/16 0:39:00 [employer], Duration: 30 day, Stop date: 10/24/16 0:38:00 [employer] Notes: (Same as:MORPhine Sulfate) Start Date: 09/24/16 Stop Date: 09/29/16 Status: Discontinuednitroglycerin 0.4 mg sublingual tablet 0.4 mg=1 tab, SL, Q5Min, PRN Chest pain, Give up to 3 doses. Call 911 if pain persists., # 100 tab, 0 Refill(s) Start Date: 09/24/16 Status: Orderednitroglycerin 0.4 mg sublingual tablet 0.4 mg, 1 tab, Route: SL, Drug form: TAB, Q5Min, Dosing Weight 84.091, kg, PRN Chest Pain, Start date: 09/24/16 19:18:00 [employer], Duration: 30 day, Stop date: 19:17:00 [employer] Notes: (Same as:Nitroquick, Nitrostat)"Do Not Crush" Sublingual tablet Start Date: 09/24/16 Stop Date: 09/29/16 Status: Discontinuedomeprazole 20 mg, Route: PO, Drug form: DRC, Daily, Dosing Weight 84.091, kg, Start date: 09/25/16 9:00:00 [employer],Duration: 30 day, Stop date: 10/24/16 9:00:00 [employer] Start Date: 09/25/16 Stop Date: 09/24/16 Status: Deletedomeprazole 20 mg, Route: PO, Drug form: DRC, Daily, Dosing Weight 84.091, kg, Start date: 09/25/16 9:00:00 [employer],Duration: 30 day, Stop date: 10/24/16 9:00:00 [employer] Start Date: 09/25/16 Stop Date: 09/24/16 Status: Deletedomeprazole 20 mg oral delayed release capsule 20 mg=1 cap, PO, Daily, # 30 cap, 0 Refill(s) Start Date: 09/24/16 Stop Date: 10/24/16 Status: Orderedondansetron 4 mg, 2 mL, Route: IVP, Drug form: INJ, Q6H, Dosing Weight 98.182, kg, PRN Nausea & Vomiting, Start date: 09/24/16 0:39:00 [employer], Duration: 30 day, Stop date: 10/24/16 0:38:00 [employer] Notes: (Same as: Olegario) MEDICATION WASTE Product Size: 4 mgProduct Wasted: ___ mg Start Date: 09/24/16 Stop Date: 09/29/16 Status: DiscontinuedProtonix 40 mg, 1 tab, Route: PO, Drug form: ECTAB, Daily, Start date: 09/25/16 9:00:00 [employer], Duration: 30 day, Stop date: 10/24/16 9:00:00 [employer] Notes: Tablet should not be chewed or crushed.(Same as: Protonix) Start Date: 09/25/16 Stop Date: 09/29/16 Status: DiscontinuedRanexa 500 mg, PO, BID, 0 Refill(s) Start Date: 09/24/16 Status: OrderedRanexa 500 mg, 1 tab, Route: PO, Drug form: TAB, BID, Dosing Weight 84.091, kg, Start date: 09/24/16 19:38:00 [employer], Duration: 30 day, Stop date: 10/24/16 17:00:00 [employer] Notes: Same as Ranexa"Do Not Crush" Start Date: 09/24/16 Stop Date: 09/29/16 Status: Discontinuedrivaroxaban 20 mg oral tablet 20 mg=1 tab, PO, QPM, 0 Refill(s) Start Date: 09/29/16 Status: Orderedsotalol 240 mg oral tablet 240 mg=1 tab, PO, Daily, # 180 tab, 0 Refill(s) Start Date: 09/24/16 Stop Date: 09/24/16 Status: Discontinuedvancomycin + sodium chloride 0.9% INJ 250 mL 1,000 mg, Route: IVPB, [id number], Dosing Weight 84.091, kg, Start date: 09/26/16 5 :00:00 [employer], Duration: 30 day, Stop date: 10/25/16 17:00:00 [employer] Notes: TIME CRITICAL MEDICATION(Same As: Vancocin)Infusion rate< 1000 mg: infuse over 1 [id number] - 1500 mg: infuse over 1.5 [id number] - 2000 mg: infuse over 2 hours> 2001 mg: infuse over 2.5 hours MEDICATION WASTE Product Size: 1000 mgProduct Wasted: ___ mg Start Date: 09/26/16 Stop Date: 09/26/16 Status: DiscontinuedXarelto 20 mg, 1 tab, Route: PO, Drug form: TAB, QPM, Dosing Weight 84.091, kg, first dose now, Start date: 09/26/16 19:00:00 [employer], Duration: 30 day, Stop date: 17:00:00 [employer] Notes: (Same as: Xarelto)Administer with food Start Date: 09/26/16 Stop Date: 09/29/16 Status: DiscontinuedXarelto 20 mg oral tablet 20 mg=1 tab, PO, QPM, # 30 tab, 3 Refill(s) Start Date: 09/24/16 Stop Date: 09/24/16 Status: Discontinued Results ELECTROLYTES Most recent to oldest [Reference Range]: 1 2 Sodium Lvl [135-145 mEq/L] 138 mEq/L (09/24/16 6:34 AM) Potassium Lvl [3.5-5.1 mEq/L] 4.1 mEq/L (09/24/16 6:34 AM) Chloride Lvl [95-109 mEq/L] 102 mEq/L (09/24/16 6:34 AM) CO2 [24-32 mEq/L] 29 mEq/L (09/24/16 6:34 AM) AGAP [10.0-20.0 mEq/L] 11.1 mEq/L (09/24/16 6:34 AM) CHEM PANEL Most recent to oldest [Reference Range]: 1 2 Creatinine Lvl [0.50-1.40 mg/dL] 1.40 mg/dL (09/24/16 6:34 AM) eGFR 46 mL/min/1.73m2 1 *NA* (09/24/16 6:34 AM) BUN [7-22 mg/dL] 25 mg/dL *HI* (09/24/16 6:34 AM) Glucose Lvl [70-99 mg/dL] 63 mg/dL *LOW* (09/24/16 6:34 AM) Calcium Lvl [8.5-10.5 mg/dL] 9.5 mg/dL (09/24/16 6:34 AM) 1Result Comment: The eGFR is calculated using the CKD-EPI formula. In most young , healthy individualsthe eGFR will be >90 mL/min/1.73m2. The eGFR declines with age. An eGFR of 60-89 may be normal in some populations, particularly the elderly, for whom the CKD-EPI formula has not been extensively validated. Use of the eGFR is not recommended in the following populations: Individuals with unstable creatinine concentrations, including patients and those with serious co-morbid conditions. Patients with extremes in muscle mass or diet. The data above are obtained from the National Kidney Disease Education Program ( NKDEP) which additionally recommends that when the eGFR is used in patients with extremes of body mass index for purposesof drug dosing, the eGFR should be multiplied by the estimated BMI.CARDIAC ENZYMES Most recent to oldest [Reference Range]: 1 2 Total CK [12-191 unit/L] 28 unit/L 23 unit/L (09/24/16 10:26 AM) (09/24/16 6:34 AM) CK MB [0.5-3.6 ng/mL] 0.8 ng/mL (09/24/16 10:26 AM) CK MB Index [0.0-2.5] 2.9 *HI* (09/24/16 10:26 AM) Troponin-I [0.00-0.40 ng/mL] <0.02 ng/mL 0.02 ng/mL (09/24/16 10:26 AM) (09/24/16 6:34 AM) HEMATOLOGY Most recent to oldest [Reference Range]: 1 2 WBC [3.7-10.4 K/CMM] 8.2 K/CMM (09/24/16 6:34 AM) RBC [4.70-6.10 M/CMM] 3.98 M/CMM *LOW* (09/24/16 6:34 AM) Hgb [14.0-18.0 g/dL] 12.1 g/dL *LOW* (09/24/16 6:34 AM) Hct [42.0-54.0 %] 36.6 % *LOW* (09/24/16 6:34 AM) MCV [80.0-94.0 fL] 91.9 fL (09/24/16 6:34 AM) MCH [27.0-31.0 pg] 30.5 pg (09/24/16 6:34 AM) MCHC [32.0-36.0 g/dL] 33.1 g/dL (09/24/16 6:34 AM) RDW [11.5-14.5 %] 15.7 % *HI* (09/24/16 6:34 AM) Platelet [133-450 K/CMM] 232 K/CMM (09/24/16 6:34 AM) MPV [7.4-10.4 fL] 7.5 fL (09/24/16 6:34 AM) Segs [45.0-75.0 %] 76.0 % *HI* (09/24/16 6:34 AM) Lymphocytes [20.0-40.0 %] 14.1 % *LOW* (09/24/16 6:34 AM) Monocytes [2.0-12.0 %] 7.7 % (09/24/16 6:34 AM) Eosinophils [0.0-4.0 %] 1.8 % (09/24/16 6:34 AM) Basophils [0.0-1.0 %] 0.4 % (09/24/16 6:34 AM) Segs-Bands # [1.5-8.1 K/CMM] 6.2 K/CMM (09/24/16 6:34 AM) Lymphocytes # [1.0-5.5 K/CMM] 1.2 K/CMM (09/24/16 6:34 AM) Monocytes # [0.0-0.8 K/CMM] 0.6 K/CMM (09/24/16 6:34 AM) Eosinophils # [0.0-0.5 K/CMM] 0.1 K/CMM (09/24/16 6:34 AM) Immunizations Given and Recorded Vaccine Date Status Refusal Reason pneumococcal 13-valent vaccine 09/24/16 Given Procedures Procedure Date Related Diagnosis Body Site Appendectomy CABG - Coronary artery bypass graft Cataract surgery Implantation of automatic cardioverter/defibrillator, total system (AICD) Rotator cuff repair Social History Social History Type Response Alcohol Past Smoking Status Former smoker; Exposure to Tobacco Smoke None; Cigarette Smoking Last 365 Days No; Reg Smoking Cessation Counseling Yes Assessment and Plan Extracted from: Title: Electrophysiology Author: Elana Valentine NP, NP Date: Progress Daily [facility] Completed: Sep, 10:24 by Elana Valentine NP [employer] RM: 404 - 1P, E4A GARFIELD ABREU 81y (: 1935) Attending: Jessica Hassan MD Service: Internal Medicine Reason for Admission: BILATERAL LEG WEAKNESS Working DRG: Cardiac arrhythmia & conduction disorders w CC Code status: None Specified=FULL CODE Current diet: Isolation: None Documented Allergies: NKFA, sulfa drugs(N/V, Allergy to sulfa drugs) SUBJECTIVE Pt denies complaints except still weak OBJECTIVE Pt lying in bed, no acute distress noted ASSESSMENT & EXAM Alert, oriented CV: RRR, paced RESP: CTA, shallow EXT: No edema, left SC implant site CDI, no bleeding or hematoma PLAN & TREATMENT 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 Pt CHF is improving but now weak, still very limited mobility. [facility]. Continue BB and PATRICIA. CAD: Pt with H/O [place] in [place] in . Continue statin, BB, ranexa, and ASA. DM Type 2: Continue Rx. Debility: Pt sitll weak, ambulated once over weekend, pending SNF. Ready for Discharge (Yes/No)? Pending SNF 24hr Labs 09/29 0839 Glucose POC 144 H 09/28 2052 Glucose POC 127 H 09/28 1533 Glucose POC 118 H 09/28 1302 Glucose POC 166 H Vitals Tmp(F) Pulse BP RR SpO2 FIO2 09/29 07:48 98.1 51 107/56 16 --- --- 09/29 03:38 97.8 80 100/65 18 --- --- 09/28 23:34 97.5 80 101/65 18 --- --- 09/28 20:00 97.7 81 99/56 18 --- --- 09/28 15:05 97.3 81 122/77 18 --- --- 24 Hr Tmax: 98.1F (36.72c) at 09/29 07:48 Vital Signs are the last 5 in the past 48 hours. Date Wt(kg) Wt(lb) Ht(cm) Ht(in) Method 09/26 82.47 181.44 Measured 09/25 77.44 170.37 Measured 09/24 (initial) 84.09 185.00 Measured 09/24 175.26 69.00 Stated I&O Record In Out Bal 09/29 24hr Tot 0 150 -150 09/28 24hr Tot 200 780 -580 Medications (25) Active Scheduled Meds (9): 09/27/16 aspirin (aspirin 81 mg tablet, enteric coated) 81 mg PO Daily 09/24/16 atorvastatin (Lipitor) 20 mg PO Bedtime 09/24/16 captopril 50 mg PO TID 09/24/16 carvedilol 6.25 mg PO BID 09/26/16 minocycline 100 mg PO [id number] 09/25/16 omega-3 polyunsaturated fatty acids (MaxEPA) 1 gm PO Daily 09/25/16 pantoprazole (Protonix) 40 mg PO Daily 09/24/16 ranolazine (Ranexa) 500 mg PO BID 09/26/16 rivaroxaban (Xarelto) 20 mg PO QPM Unscheduled Meds: None PRN Meds (16): 09/26/16 Dextrose 50% in Water IV (Dextrose 50% Syringe) 12.5 gm IVP PRN 09/26/16 Dextrose 50% in Water IV (Dextrose 50% Syringe) 25 gm IVP PRN 09/24/16 docusate 100 mg PO BID 09/26/16 glucagon 1 mg IM PRN 09/26/16 insulin aspart 2 unit SUB-Q TID-Before Meals 09/26/16 insulin aspart 4 unit SUB-Q TID-Before Meals 09/26/16 insulin aspart 6 unit SUB-Q TID-Before Meals 09/26/16 insulin aspart 8 unit SUB-Q TID-Before Meals 09/26/16 insulin aspart 10 unit SUB-Q TID-Before Meals 09/26/16 insulin aspart 1 unit SUB-Q Bedtime 09/26/16 insulin aspart 2 unit SUB-Q Bedtime 09/26/16 insulin aspart 3 unit SUB-Q Bedtime 09/26/16 insulin aspart 4 unit SUB-Q Bedtime 09/24/16 morphine Sulfate 2 mg IVP Q4H 09/24/16 nitroglycerin (nitroglycerin 0.4 mg sublingual tablet) 0.4 mg SL Q5Min 09/24/16 ondansetron 4 mg IVP Q6H One Time Meds: None Continuous Infusions: None
--- OUTSIDE RECORDS SUMMARY | 2018-07-18 18:32 | XMS REPORT | CCD ---
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 07/14/2012 Active PA - Myocardial infarction Active Replacement of pacemaker pulse generator 07/14/2012 Active VT - Ventricular tachycardia Active Medications Medication Instructions Start Date End Date Status acetaminophen-hydrocodone 2 tab, Route: PO, Drug 07/14/2012 07/16/2012 Discontinued 325 mg-5 mg oral tablet Form: TAB, Q4H, PRN Pain Score 4-6, Start date: 07/14/12 13:38:00, Duration: 30 day, Stop date: 08/13/12 13:37:00 acetaminophen-hydrocodone 1 tab, Route: PO, Drug 07/14/2012 07/16/2012 Discontinued 325 mg-5 mg oral tablet Form: TAB, Q4H, PRN Pain Score 4-6, Start date: 07/14/12 13:38:00, Duration: 30 day, Stop date: 08/13/12 13:37:00 Amaryl 1 mg, 1 tab, Route: PO, 07/14/2012 07/16/2012 Discontinued Drug form: TAB, Daily, Start date: 07/14/12 13:44:00, Duration: 30 day, Stop date: 08/13/12 9:00:00 acetaminophen 1,000 mg, 2 tab, Route: 07/14/2012 07/16/2012 Discontinued PO, Drug form: TAB, Q4H, PRN Pain Score 1-3, Start date: 07/14/12 13:37:00, Duration: 30 day, Stop date: 08/13/12 13:36:00 Protonix 40 mg, 1 tab, Route: PO, 07/14/2012 07/16/2012 Discontinued Drug form: ECTAB, Before Dinner, Start date: 07/14/12 16:30:00, Duration: 30 day, Stop date: 08/12/12 16:30:00 Ranexa 500 mg oral tablet, 500 mg, 1 tab, Route: 07/14/2012 07/16/2012 Discontinued extended release PO, Drug form: TAB, BID, Start date: 07/14/12 17:00:00, Duration: 30 day, Stop date: 08/13/12 9:00:00 Zofran 4 mg, 2 mL, Route: IVP, 07/14/2012 07/16/2012 Discontinued Drug form: INJ, Q4H, PRN Nausea, Start date: 07/14/12 13:37:00, Duration: 30 day, Stop date: 08/13/12 13:36:00 Restoril 7.5 mg, 1 cap, Route: 07/14/2012 07/16/2012 Discontinued PO, Drug form: CAP, Bedtime, PRN Sleep, Start date: 07/14/12 21:00:00, Duration: 30 day, Stop date: 08/13/12 20:59:00 Keflex 500 mg, 1 cap, Route: 07/15/2012 07/16/2012 Discontinued PO, Drug form: CAP, ABXQ6H, Start date: 07/15/12 14:00:00, Duration: 30 day, Stop date: 08/14/12 8:00:00 cefazolin + Sodium 1 gm, Route: IVPB, 07/14/2012 07/15/2012 Completed Chloride 0.9% IV 100 mL ABXQ8H, Start date: 07/14/12 16:00:00, Duration: 3 doses or times, Stop date: 07/15/12 8:00:00 Sodium Chloride 0.9% IV 250 mL, Route: IVPB, 07/14/2012 07/16/2012 Discontinued Start date: 07/14/12 13:35:00, Duration: 30 day, Stop date: 08/13/12 13:34:00, PRN Line Flush BD Normal Saline Flush 10 mL, Route: IVP, Drug 07/14/2012 07/16/2012 Discontinued Form: INJ, PRN, PRN Line Flush, Start date: 07/14/12 13:35:00, Duration: 30 day, Stop date: 08/13/12 13:34:00 MaxEPA 1 gm, 1 cap, Route: PO, 07/15/2012 07/16/2012 Discontinued Drug form: CAP, BID, Start date: 07/15/12 9:00:00, Duration: 30 day, Stop date: 08/13/12 17:00:00 Dulcolax Laxative 5 mg, 1 tab, Route: PO, 07/15/2012 07/16/2012 Discontinued Drug form: ECTAB, Daily, Start date: 07/15/12 9:00:00, Duration: 30 day, Stop date: 08/13/12 9:00:00 docusate sodium 100 mg 100 mg, 1 cap, Route: 07/15/2012 07/16/2012 Discontinued oral capsule PO, Drug form: CAP, BID, Start date: 07/15/12 9:00:00, Duration: 30 day, Stop date: 08/13/12 17:00:00 Lipitor 20 mg, 1 tab, Route: PO, 07/14/2012 07/16/2012 Discontinued Drug form: TAB, QPM, Start date: 07/14/12 17:00:00, Duration: 30 day, Stop date: 08/12/12 17:00:00 Betapace 240 mg, 3 tab, Route: 07/14/2012 07/16/2012 Discontinued PO, Drug form: TAB, BID, Start date: 07/14/12 17:00:00, Duration: 30 day, Stop date: 08/13/12 9:00:00 aspirin 81 mg tablet, 81 mg, 1 tab, Route: 07/14/2012 07/16/2012 Discontinued chewable CHEW, Drug form: CHEWTAB, Daily, Start date: 07/14/12 13:45:00, Duration: 30 day, Stop date: 08/13/12 9:00:00 captopril 50 mg, 2 tab, Route: PO, 07/14/2012 07/16/2012 Discontinued Drug form: TAB, TID, Start date: 07/14/12 13:45:00, Duration: 30 day, Stop date: 08/13/12 13:00:00 morphine Sulfate 2 mg, 0.4 mL, Route: 07/14/2012 07/16/2012 Discontinued IVP, Drug form: INJ, Q3H, PRN Pain Score 7-10, Start date: 07/14/12 13:39:00, Duration: 30 day, Stop date: 08/13/12 13:38:00 Vital Signs Most recent to oldest 1 2 3 [Reference Range]: Height 175.26 cm (07/14/2012 08:03:00) Current Weight 98.352 kg 98.182 kg (07/16/2012 05:00:00) (07/15/2012 05:00:00) Temperature Oral 98.1 DegF 98.1 DegF 97.8 DegF [96.4-99.1 DegF] (07/16/2012 08:02:00) (07/16/2012 04:00:00) (07/16/2012 00: 00:00) Systolic Blood Pressure 133 mmHg 118 mmHg 128 mmHg [90-140 mmHg] (07/16/2012 08:02:00) (07/16/2012 04:00:00) (07/16/2012 00:00: 00) Diastolic Blood Pressure 74 mmHg 66 mmHg 70 mmHg [60-90 mmHg] (07/16/2012 08:02:00) (07/16/2012 04:00:00) (07/16/2012 00:00: 00) Respiratory Rate [14-20 18 BRMIN 18 BRMIN 18 BRMIN BRMIN] (07/16/2012 08:02:00) (07/16/2012 04:00:00) (07/16/2012 00:00:00) Peripheral Pulse Rate 59 bpm 60 bpm 59 bpm [60-100 bpm] *LOW* (07/16/2012 04:00:00) *LOW* (07/16/2012 08:02:00) (07/16/2012 00:00:00) Weight 98.182 kg (07/14/2012 08:03:00) Results BEDSIDE GLUCOSE TESTING Most recent to oldest [Reference 1 2 Range]: Gluc POC Lifscn [70-99 mg/dL] 136 mg/dL 1 117 mg/dL 2 *HI* *HI* (07/14/2012 14:12:00) (07/14/2012 11:04:00) Comment1 Notify RN/MD *NA* (07/14/2012 14:12:00) 1Interpretive Data: Upper Reportable Limit: 200 mg/dL.2Interpretive Data: Upper Reportable Limit: 200 mg/dL.
[2018-07-18] MEDS ORDERED: NA CHLORIDE 0.9% 500 ML ONE (19:34)
[2018-07-18 19:47] LABS: Absolute Lymphocytes (CBC) 0.9 K/uL (0.7-4.9); Hematocrit 33.2 % (39.6-49.0); MCH 27.1 pg (27.0-35.0); MCV 82.8 fL (80-100); MPV 7.7 fL (7.6-11.3); RBC Red Blood Cell Count 4.01 M/uL (4.33-5.43)
[2018-07-18 19:52] LABS: Absolute Neutrophil 15.8 K/uL (1.8-8.0); Basophils % 0.3 % (0-1.3); Lymphocytes % 4.9 % (15.3-44.8); Monocytes % 5.7 % (3.3-12.3)
[2018-07-18 19:59] LABS: BUN Blood Urea Nitrogen 20 mg/dL (7-18); Bicarbonate 20 mmol/L (21-32); Creatine Phosphokinase 24 U/L (39-308); Glucose Level 93 mg/dL (74-106); Magnesium 1.8 mg/dL (1.8-2.4); NT PRO-BNP 6593 pg/mL (<450); Potassium 4.1 mmol/L (3.5-5.1); Sodium Level 135 mmol/L (136-145); Troponin (Emerg Dept Use Only) < 0.02 ng/mL (0.0-0.045)
--- NOTE | 2018-07-18 19:59 | RAD REPORT ---
EXAM DESCRIPTION: CT - Head Brain Wo Cont - 07/18/2018 7:38 pm CLINICAL HISTORY: Weakness, dizziness, possible CVA COMPARISON: CT head September 2016 TECHNIQUE: Axial 5 mm thick images of the head were obtained without IV contrast. All CT scans are performed using dose optimization technique as appropriate and may include automated exposure control or mA/KV adjustment according to patient size. FINDINGS: No intracranial hemorrhage, mass, edema or shift of mid-line structures. No acute infarcti on changes seen. Moderate atrophy and advanced chronic ischemic changes are present. Ventricles are i n proportion to volume loss. The intracranial findings are not substantially different from September 08. Arterial tree calcifications are present. Mastoid air cells and visualized portions of the paranasal sinuses are clear. No acute bony findings. IMPRESSION: Moderate atrophy and advanced chronic ischemic changes are present similar to comparison . No acute intracranial finding.
--- NOTE | 2018-07-18 20:03 | RAD REPORT ---
EXAM DESCRIPTION: RAD - Chest Single View - 07/18/2018 7:26 pm CLINICAL HISTORY: Weakness, shortness of breath COMPARISON: October 13, 2017 TECHNIQUE: AP portable chest image was obtained 1912 hours . FINDINGS: No peripheral mass or consolidation. Numerous punctate calcifications throughout the lung parenchyma. Heart size is upper normal. Vasculature within normal limits. Pacemaker/defibrillator is in place. No measurable pleural effusion and no pneumothorax. No acute bony abnormality seen. No acut e aortic findings suspected. IMPRESSION: Chronic interstitial lung disease and innumerable granulomas throughout the lung parench yma all similar to comparison. Heart size is upper normal. No acute failure or volume overload.
--- NOTE | 2018-07-18 20:33 | ER ---
Nurse's Notes [facility] Name: Екатерина Hare Age: 82 yrs Sex: Male : 1935 Arrival Date: 07/18/2018 Time: 18:32 Bed 7 Private MD: Diagnosis: Weakness;Urinary tract infection;Dehydration Presentation: 07/18 18:34 Presenting complaint: EMS states: Pt had a cardiac Watchman placed last week, he has jl7 been feeling weak for 2 days, both legs feel heavy. Denies and pain, N/V/D, SOB. Transition of care: patient was not received from another setting of care. Onset of symptoms was July 17, 2018. Risk Assessment: Do you want to hurt yourself or someone else? Patient reports no desire to harm self or others. Initial Sepsis Screen: Does the patient meet any 2 criteria? No. Patient's initial sepsis screen is negative. Does the patient have a suspected source of infection? No. Patient's initial sepsis screen is negative. Care prior to arrival: IV initiated. 20 GA, in the right forearm. 18:34 Method Of Arrival: EMS: [facility] 7 18:34 Acuity: NICOLE 3 jl7 Triage Assessment: 18:41 General: Appears in no apparent distress. uncomfortable, Behavior is calm, cooperative, jl7 appropriate for age. Pain: Denies pain. EENT: No signs and/or symptoms were reported regarding the EENT system. Neuro: Level of Consciousness is awake, alert, obeys commands, Oriented to person, place, time, situation. Cardiovascular: Patient's skin is warm and dry. Respiratory: Airway is patent Respiratory effort is even, unlabored, Respiratory pattern is regular, symmetrical. GI: No signs and/or symptoms were reported involving the gastrointestinal system. : No signs and/or symptoms were reported regarding the genitourinary system. Derm: Skin is pink, warm \T\ dry. Musculoskeletal: No signs and/or symptoms reported regarding the musculoskeletal system. Historical: - Allergies: 18:41 Sulfa (Sulfonamide Antibiotics); jl7 - Home Meds: 18:41 Ranexa 500 mg Oral Tb12 1 tab 2 times per day [Active]; glimepiride 1 mg Oral tab 1 tab jl7 once daily [Active]; lovastatin 40 mg Oral tab 1 tab nightly [Active]; omeprazole 20 mg Oral cpDR 1 cap once daily [Active]; carvedilol 6.25 mg Oral tab 1 tab 2 times per day [Active]; nitroglycerin 0.4 mg SL subl 1 tab [Active]; nitroglycerin 0.4 mg/hr Topical pt24 1 patch once daily [Active]; Xarelto 15 mg Oral tab daily [Active]; Fish Oil Oral [Active]; - PMHx: 18:41 Atrial Fib; CAD; CHF; COPD; Diabetes - NIDDM; Hyperlipidemia; Hypertension; Myocardial jl7 infarction; Pacemaker; Pneumonia; cardiomyopathy; - PSHx: 18:41 CABG; jl7 - Immunization history:: Adult Immunizations up to date. - Social history:: Smoking status: Patient/guardian denies using tobacco. - Ebola Screening: : No symptoms or risks identified at this time. - Family history:: not pertinent. - Hospitalizations: : No recent hospitalization is reported. Screenin:43 Abuse screen: Denies threats or abuse. Denies injuries from another. Nutritional 7 screening: No deficits noted. Tuberculosis screening: No symptoms or risk factors identified. Fall Risk IV access (20 points). Total Will Fall Scale indicates No Risk (0-24 pts). Assessment: 18:43 General: See triage assessment. jl7 20:47 Reassessment: lab at bedside attempting to draw blood cultures. tl2 22:00 Reassessment: Patient appears in no apparent distress at this time. Patient and/or tl2 family updated on plan of care and expected duration. Pain level reassessed. Patient is alert, oriented x 3, equal unlabored respirations, skin warm/dry/pink. Awaiting orders for admission.. Vital Signs: 18:41 BP 112 / 47; Pulse 72; Resp 22 S; Temp 97.9(O); Pulse Ox 97% on R/A; Weight [facility].65 [facility] (R); Height 5 ft. 9 in. (175.26 cm) (R); Pain 0/10; 19:50 BP 124 / 83; Pulse 79; Resp 17; Pulse Ox 97% on R/A; tl2 21:28 BP 105 / 51; Pulse 71; Resp 22; Pulse Ox 100% on R/A; tl2 18:41 Body Mass Index 26.58 (81.65 kg, 175.26 cm) jl7 ED Course: 18:32 Patient arrived in ED. hj 18:36 Triage completed. jl7 18:38 EKG done, by ED staff. hj 18:41 Arm band placed on right wrist. jl7 18:43 Maintain EMS IV. Dressing intact. Good blood return noted. Site clean \T\ dry. Gauge \T\ jl 7 site: 20 right FA. 18:43 Patient has correct armband on for positive identification. Placed in gown. Bed in low jl7 position. Call light in reach. Side rails up X2. classroom monitor on. Pulse ox on. NIBP on. Warm blanket given. 19:02 Aj Sultana MD is Attending Physician. rn 19:17 Sandra Ortiz RN is Primary Nurse. tl2 19:24 X-ray completed. Portable x-ray completed in exam room. Patient tolerated procedure kp1 well. 19:26 XRAY Chest (1 view) In Process Unspecified. EDMS 19:37 CT completed. Patient moved to CT via stretcher. Patient moved back from CT. cw1 19:38 CT Head Brain wo Cont In Process Unspecified. EDMS 20:30 Deanna Willis MD is Hospitalizing Provider. rn Administered Medications: 20:03 Drug: NS 0.9% 500 ml Route: IV; Rate: bolus; Site: right forearm; tl2 21:00 Follow up: IV Status: Completed infusion; IV Intake: 500ml tl2 21:23 Drug: Rocephin - (cefTRIAXone) 1 grams Route: IVPB; Infused Over: 30 mins; Site: right tl2 forearm; 22:37 Follow up: IV Status: Completed infusion tl2 Intake: 21:00 IV: 500ml; Total: 500ml. tl2 Outcome: 20:32 Decision to Hospitalize by Provider. rn 22:32 Patient left the ED. tl2 Signatures: Dispatcher [employer] EDMS Gillian Rawls RN RN aj Nieto, Roman, MD MD rn Woodley, Crystal cw1 Fazal Brownlee RN RN hj Knox, Taylor, RN RN tl2 Ramirez De La Paz RN RN jl7 Margareth Tabor kp1 Corrections: (The following items were deleted from the chart) 22:32 22:00 Reassessment: Patient appears in no apparent distress at this time. Patient tl2 and/or family updated on plan of care and expected duration. Pain level reassessed. Patient is alert, oriented x 3, equal unlabored respirations, skin warm/dry/pink. Awaiting orders for admission aj
--- NOTE | 2018-07-18 20:33 | EDPHYS ---
Physician Documentation [facility] Name: Екатерина Hare Age: 82 yrs Sex: Male : 1935 Arrival Date: 07/18/2018 Time: 18:32 Bed 7 Private MD: ED Physician Aj Sultana HPI: 07/18 19:22 This 82 yrs old Male presents to ER via EMS with complaints of General rn Weakness. 19:22 Reports generalized weakness, began yesterday afternoon, reports began to shake rn uncontrollably, no fever, no chest pain, no abd pain/nausea/vomiting/diarrhea. Reports so weak couldn't get out of bed or fix himself food for last 24 hours. . Onset: The symptoms/episode began/occurred yesterday. Severity of symptoms: At their worst the symptoms were moderate in the emergency department the symptoms are unchanged. The patient has experienced a previous episode. The patient has not recently seen a physician. Historical: - Allergies: 18:41 Sulfa (Sulfonamide Antibiotics); jl7 - Home Meds: 18:41 Ranexa 500 mg Oral Tb12 1 tab 2 times per day [Active]; glimepiride 1 mg Oral tab 1 tab jl7 once daily [Active]; lovastatin 40 mg Oral tab 1 tab nightly [Active]; omeprazole 20 mg Oral cpDR 1 cap once daily [Active]; carvedilol 6.25 mg Oral tab 1 tab 2 times per day [Active]; nitroglycerin 0.4 mg SL subl 1 tab [Active]; nitroglycerin 0.4 mg/hr Topical pt24 1 patch once daily [Active]; Xarelto 15 mg Oral tab daily [Active]; Fish Oil Oral [Active]; - PMHx: 18:41 Atrial Fib; CAD; CHF; COPD; Diabetes - NIDDM; Hyperlipidemia; Hypertension; Myocardial jl7 infarction; Pacemaker; Pneumonia; cardiomyopathy; - PSHx: 18:41 CABG; jl7 - Immunization history:: Adult Immunizations up to date. - Social history:: Smoking status: Patient/guardian denies using tobacco. - Ebola Screening: : No symptoms or risks identified at this time. - Family history:: not pertinent. - Hospitalizations: : No recent hospitalization is reported. ROS: 19:22 Constitutional: Negative for fever and weight loss, Eyes: Negative for injury, pain, rn redness, and discharge, Neck: Negative for injury, pain, and swelling, Cardiovascular: Negative for chest pain, palpitations, and edema, Respiratory: Negative for shortness of breath, cough, wheezing, and pleuritic chest pain, Abdomen/GI: Negative for abdominal pain, nausea, vomiting, diarrhea, and constipation, MS/Extremity: Negative for injury and deformity, Skin: Negative for injury, rash, and discoloration, Neuro: Negative for headache, numbness, tingling, and seizure. Exam: 19:22 Constitutional: This is a well developed, well nourished patient who is awake, alert, rn and in no acute distress. Head/Face: Normocephalic, atraumatic. Eyes: Pupils equal round and reactive to light, extra-ocular motions intact. Lids and lashes normal. Conjunctiva and sclera are non-icteric and not injected. Cornea within normal limits. Periorbital areas with no swelling, redness, or edema. ENT: MMM Cardiovascular: Irregular rhythm, regular rate, no murmur Respiratory: mild tachypnea, no retractions, diminished bilateral bases Abdomen/GI: soft, non-tender MS/ Extremity: Pulses equal, no cyanosis. Neurovascular intact. Full, normal range of motion. Equal circumference. Neuro: Awake and alert, GCS 15, oriented to person, place, time, and situation. Cranial nerves II-XII grossly intact. Motor strength 4/5 in all extremities. Sensory grossly intact. Vital Signs: 18:41 BP 112 / 47; Pulse 72; Resp 22 S; Temp 97.9(O); Pulse Ox 97% on R/A; Weight 81.65 kg jl7 (R); Height 5 ft. 9 in. (175.26 cm) (R); Pain 0/10; 19:50 BP 124 / 83; Pulse 79; Resp 17; Pulse Ox 97% on R/A; tl2 21:28 BP 105 / 51; Pulse 71; Resp 22; Pulse Ox 100% on R/A; tl2 18:41 Body Mass Index 26.58 (81.65 kg, 175.26 cm) jl7 MDM: 19:02 Patient medically screened. rn 20:27 Differential Diagnosis altered mental status, sepsis, flu. Data reviewed: vital signs, rn nurses notes, lab test result(s), EKG, radiologic studies, and as a result, I will admit patient. Counseling: I had a detailed discussion with the patient and/or guardian regarding: the historical points, exam findings, and any diagnostic results supporting the discharge/admit diagnosis, lab results, radiology results, the need for further work-up and treatment in the hospital. Admission orders: after a detailed discussion of the patient's condition and case, the admit orders are written by me. ED course: Pt with UTI and acute kidney injury/dehydration, will admit to Dr. Willis, message left for Dr. Brown.. 07/18 19:15 Order name: Troponin (emerg Dept Use Only); Complete Time: 20:03 07/18 19:15 Order name: Basic Metabolic Panel; Complete Time: 20:03 07/18 19:15 Order name: CBC with Diff rn 07/18 19:15 Order name: CPK; Complete Time: 20:03 07/18 19:15 Order name: Magnesium; Complete Time: 20: 07/18 19:15 Order name: Urine Microscopic Only 07/18 19:15 Order name: CT Head Brain wo Cont; Complete Time: 20:03 07/18 19:15 Order name: XRAY Chest (1 view); Complete Time: 20:03 07/18 19:16 Order name: N-Terminal Pro-brain Natriuretic Peptide; Complete Time: 20:03 07/18 19:16 Order name: Flu 07/18 19:16 Order name: Blood Culture Adult (2) 07/18 19:16 Order name: Urine Culture 07/18 19:55 Order name: CBC Smear Scan EDIA 07/18 20:43 Order name: Urine Dipstick--Ancillary (enter results) pa 07/18 19:15 Order name: EKG; Complete Time: 19:16 07/18 19:15 Order name: Cardiac monitoring; Complete Time: 19:18 07/18 19:15 Order name: EKG - Nurse/Tech; Complete Time: 19:18 07/18 19:15 Order name: IV Saline Lock; Complete Time: 19:18 07/18 19:15 Order name: Labs collected and sent; Complete Time: 19:18 07/18 19:15 Order name: NPO; Complete Time: 19:18 07/18 19:15 Order name: O2 Per Protocol; Complete Time: :18 rn 07/18 19:15 Order name: O2 Sat Monitoring; Complete Time: : rn 07/18 19:15 Order name: Urine Dipstick-Ancillary (obtain specimen); Complete Time: 20:03 rn Administered Medications: 20:03 Drug: NS 0.9% 500 ml Route: IV; Rate: bolus; Site: right forearm; tl2 21:00 Follow up: IV Status: Completed infusion; IV Intake: 500ml tl2 21:23 Drug: Rocephin - (cefTRIAXone) 1 grams Route: IVPB; Infused Over: 30 mins; Site: right tl2 forearm; 22:37 Follow up: IV Status: Completed infusion tl2 Disposition: 07/18/18 20:32 Hospitalization ordered by Deanna Willis for Inpatient Admission. Preliminary diagnosis are Weakness, Urinary tract infection, Dehydration. - Bed requested for Telemetry/MedSurg (Inpatient). - Status is Inpatient Admission. tl2 - Condition is Stable. - Problem is new. - Symptoms have improved. UTI on Admission? Yes Signatures: Dispatcher [employer] EDMS Aj Sultana MD MD rn Knox, Taylor RN RN tl2 Ramirez De La Paz RN RN jl7 Corrections: (The following items were deleted from the chart) 20:38 20:32 Hospitalization Ordered by Deanna Willis MD for Inpatient Admission. Preliminary rn diagnosis is Weakness; Urinary tract infection; Dehydration. Bed requested for Telemetry/MedSurg (Inpatient). Status is Inpatient Admission. Condition is Stable. Problem is new. Symptoms have improved. UTI on Admission? Yes. rn 22:32 20:38 07/18/2018 20:32 Hospitalization Ordered by Deanna Willis MD for Inpatient tl2 Admission. Preliminary diagnosis is Weakness; Urinary tract infection; Dehydration. Bed requested for Telemetry/MedSurg (Inpatient). Status is Inpatient Admission. Condition is Stable. Problem is new. Symptoms have improved. UTI on Admission? Yes. rn
[2018-07-18 20:47] LABS: Platelet Estimate ADEQ; Urine White Blood Cell Casts OK
[2018-07-18 20:48] LABS: Blood Morphology Comment NOT SEEN (NOT SEEN)
[2018-07-18 21:27] LABS: Urine Blood TRACE (NEG); Urine Glucose NEGATIVE (NEG); Urine Protein 2+ (NEG); Urine Specific Gravity >1.030 (1.005-1.030)
[2018-07-18] MEDS ORDERED: CEFTRIAXONE/SWI 1gm 1 GM/10 ML SYR ONE (21:28)
[2018-07-18 21:32] LABS: Urine Bacteria LOADED /HPF (NONE SEEN); Urine RBC <5 /HPF (NONE SEEN)
[2018-07-18 21:33] LABS: Urine Culture Reflex Order NOT NEEDED
[2018-07-18] MEDS ORDERED: ONDANSETRON 4 MG/2 ML VIAL IV PRN (21:39)
[2018-07-18] MEDS ORDERED: ACETAMINOPHEN 500 MG TAB PO PRN (21:39)
[2018-07-18] MEDS: NA CHLORIDE 0.9% 1,000 ML IV SCH (22:29)
[2018-07-19 06:15] LABS: Absolute Lymphocytes (CBC) 1.2 K/uL (0.7-4.9); Absolute Monocytes 1.2 K/uL (0.1-1.3); Absolute Neutrophil 12.2 K/uL (1.8-8.0); Basophils % 0.3 % (0-1.3); Eosinophils % 0.2 % (0-4.4); Hematocrit 30.3 % (39.6-49.0); Lymphocytes % 8.4 % (15.3-44.8); MCH 27.5 pg (27.0-35.0); MCV 82.5 fL (80-100); MPV 7.7 fL (7.6-11.3); Monocytes % 8.3 % (3.3-12.3); RBC Red Blood Cell Count 3.68 M/uL (4.33-5.43)
--- NOTE | 2018-07-19 07:03 | EKG ---
Test Date: 2018-07-18 Test Time: 18:32:43 Combine Driver: RADHA MEASUREMENT RESULTS: Intervals: Rate: 71 UT: QRSD: 176 QT: 528 QTc: 573 [place]: P: UT: QRS: 188 T: 11 INTERPRETIVE STATEMENTS: Ventricular-paced rhythm Abnormal ECG Compared to ECG 10/13/2017 12:00:53 No significant changes Electronically Signed On 07-19-18 07:02:23 [employer] by Saul Montemayor
[2018-07-19] MEDS: NA CHLORIDE 0.9% 1,000 ML IV SCH (08:51)
[2018-07-19] MEDS: CEFTRIAXONE/SWI 1gm 1 GM/10 ML SYR IV SCH ×2 (08:52→21:00)
[2018-07-19] MEDS ORDERED: CEFTRIAXONE 1 GM/NS 50 ML 1 GM/50 ML BAG IV SCH (09:00)
[2018-07-19] MEDS ORDERED: NITROGLYCERIN 0.4 MG/HR (10 MG) PATCH TD PRN (11:24)
[2018-07-19] MEDS ORDERED: NITROGLYCERIN 0.4 MG/TAB SL PRN (11:24)
[2018-07-19] MEDS ORDERED: D50W 25 GM/50 ML SYRINGE IV PRN (11:53)
[2018-07-19] MEDS ORDERED: GLUCAGON 1 MG/VIAL IM PRN (11:53)
[2018-07-19] MEDS: INSULIN -REGULAR HUMAN 50 UNIT/0.5 ML ML SQ SCH ×2 (16:30→21:00)
--- NOTE | 2018-07-19 18:01 | HP ---
Date of Admission: 07/18/2018 History Of Present Illness: An 82-year-old male with multiple medical problems, presented to emergen cy room with a complaint that for about 2-3 days, he has been feeling gradually weaker. He felt some how febrile, felt cold at 1 time but not all the time, but he did not have chills. However, he start ed feeling fatigued to where he could not really ambulate as good as he used to, came to emergency ro om and the patient was found to have cystitis along with volume dehydration and was admitted for that . The patient denies any nausea and vomiting. No diarrhea and no increased shortness of breath and no coughing. Review of Systems: Cardiovascular: No complaints. Respiratory: No complaints. Skeletomuscular: No complaint. Neurological: No complaint. Genitourinary: The patient denied having burning urination or increased frequency. He did not have much symptoms on that. Gastrointestinal: No complaint. Social History: No smoking, alcohol, or drug abuse history. Family History: Noncontributing. Medications: Include Coreg 6.25 mg p.o. b.i.d., fish oil 1200 mg p.o. b.i.d., glimepiride 2 mg p.o. daily, lovastatin 40 mg p.o. daily, Nitrostat 0.4 mg tab sublingual p.r.n., nitroglycerin patch 10 mg patch q.24 hours, omeprazole 20 mg p.o. daily, Ranexa 1000 mg q.12 hours, and Xarelto 50 mg p.o. francis ly. Past Medical History: Include. 1.Type 2 diabetes. 2.Coronary artery disease with stent placements. 3.Congestive heart failure. 4.Arrhythmia with defibrillator placement. 5.Stable angina on Ranexa. 6.Hypertension. 7.Hyperlipidemia. 8.Gastroesophageal reflux disease. 9.Osteoarthritis, multiple joints. Allergies: SULFA. Physical Examination: Vital signs: Blood pressure 111/56, pulse 70, temperature 97.1. Heart: Regular rate and rhythm. Chest: Clear to auscultation. Abdomen: Soft, nontender, nondistended. Bowel sounds normoactive. Extremities: No edema. No cyanosis. Peripheral pulses are felt. Neurological examination: Alert, oriented, nonfocal. Grossly intact. Diagnostic Data: EKG showed ventricular paced rhythm. Chest x-ray, chronic interstitial lung diseas e, adrenal masses throughout the lung parenchyma, old similar to comparison, no acute pathology. Hea d CT, no acute pathology or masses, has moderate atrophy and chronic ischemic changes. CBC: White c ell count 17.8, dropped down to 14.8, hemoglobin 10.1, hematocrit 30.3, platelets 197, neutrophils at 82.8 high. BUN 22, creatinine 1.50. The creatinine has dropped down from 1.6 to 1.5. Blood sugar fingersticks noted. BNP 6593. Urinalysis showed nitrite positive, estrace 1+, white BC 20 to 50, hi gh, loaded with bacteria. Assessment And Plan: 1.Cystitis with possible sepsis causing the patient generalized symptoms of fatigue and weakness. T he patient is being admitted we will put him on IV ceftriaxone. 2.The patient also diabetic type 2. We will put him on his home medication and we will monitor his blood sugar fingersticks and put him on regular sliding scale. 3.Crohn disease and stable angina. The patient is hemodynamically stable at this time. We will antonina p him on his home medications for that. He is already anticoagulated also with Xarelto. Cultures of blood and urine pending. We will monitor all that we will act accordingly. Look orders for details of the dictation. CAMERON/PRISCILLA Voice ID: [id number]
[2018-07-19] MEDS: DOCOSAHEXANOIC AC/EPA 1000 MG PO SCH (21:29)
[2018-07-19] MEDS: ATORVASTATIN 20 MG TAB PO SCH (21:30)
[2018-07-19] MEDS: CARVEDILOL 6.25 MG TAB PO SCH (21:30)
[2018-07-20] MEDS: PANTOPRAZOLE 40MG TABLET PO SCH (05:14)
[2018-07-20 06:01] LABS: Absolute Lymphocytes (CBC) 0.9 K/uL (0.7-4.9); Absolute Monocytes 0.8 K/uL (0.1-1.3); Absolute Neutrophil 9.8 K/uL (1.8-8.0); Basophils % 0.4 % (0-1.3); Eosinophils % 1.2 % (0-4.4); Hematocrit 31.2 % (39.6-49.0); Lymphocytes % 7.4 % (15.3-44.8); MCH 27.1 pg (27.0-35.0); MCV 83.8 fL (80-100); MPV 7.6 fL (7.6-11.3); Monocytes % 6.6 % (3.3-12.3); RBC Red Blood Cell Count 3.73 M/uL (4.33-5.43)
[2018-07-20] MEDS: INSULIN -REGULAR HUMAN 50 UNIT/0.5 ML ML SQ SCH ×4 (07:30→21:00)
[2018-07-20] MEDS: CEFTRIAXONE/SWI 1gm 1 GM/10 ML SYR IV SCH ×2 (08:30→20:13)
[2018-07-20] MEDS: CARVEDILOL 6.25 MG TAB PO SCH ×2 (08:30→20:12)
[2018-07-20] MEDS: DOCOSAHEXANOIC AC/EPA 1000 MG PO SCH ×2 (08:30→20:13)
[2018-07-20] MEDS: GLIMEPIRIDE 2 MG TABLET PO SCH (08:31)
[2018-07-20] MEDS: RIVAROXABAN 15 MG TABLET PO SCH (08:31)
--- NOTE | 2018-07-20 19:01 | PN ---
Subjective: The patient is feeling well. No new complaints. Objective: Vital Signs: Blood pressure 110/62, pulse 77, temperature 98. Heart: Regular rate and rhythm. Chest: Clear to auscultation. Abdomen: Soft. Benign. Neurological: Examination was grossly intact. Extremities: No edema or cyanosis. Laboratory Data: Urine culture showed E coli, sensitivities were noted. CBC noted white cell count dropped to 11.6. Chemistry; BUN 27, creatinine 1.40. Blood sugar, fingersticks noted. Procalcitoni n was high at 1.12. Assessment And Plan: 1.Cystitis with Escherichia coli sepsis. Of course the patient's symptom of being fatigued this muc h evident by increase procalcitonin. We will continue him on ceftriaxone for 1 more day. The patien t has requested to go to a fpc facility. We will ask [employer] to arrange for that . Meanwhile, we will continue current treatment. 2.Chronic renal insufficiency, back to baseline. 3.Chronic medical problems, stable. MFS/MODL Voice ID: [id number] Report ID: [id number]
[2018-07-20] MEDS ORDERED: FUROSEMIDE 40 MG/4 ML VIAL IV ONE (19:59)
[2018-07-20] MEDS: ATORVASTATIN 20 MG TAB PO SCH (20:12)
[2018-07-20] MEDS ORDERED: FUROSEMIDE 20 MG/ 2ML VIAL IV ONE (20:50)
--- NOTE | 2018-07-20 21:04 | RAD REPORT ---
EXAM DESCRIPTION: RAD - Chest Single View - 07/20/2018 8:58 pm CLINICAL HISTORY: Fluid overload Chest pain. COMPARISON: Chest Single View dated 07/18/2018; Chest Pa And Lat (2 Views) dated 10/13/2017; Chest Sin gle View dated 09/23/2016; Chest Single View dated 09/14/2016 FINDINGS: Portable technique limits examination quality. Mild to moderate pulmonary edema noted. Calcified granulomata are noted throughout the lungs. The hea rt is moderately enlarged with multilead pacer/ defibrillator device. No displaced fractures.Sternoto my wires seen. IMPRESSION: Mild to moderate CHF versus volume overload pattern.
[2018-07-20 23:39] LABS: Arterial Blood Carboxyhemoglob 1.5 % (0-1.5); Blood Gas Oxyhemoglobin 96.6 % (94-97); Blood O2 Saturation 98.5 % (92-98.5)
--- NOTE | 2018-07-21 05:26 | P.PN ---
Date of Service: 07/20/18 Mr Hare was admitted 2 days ago due to sepsis secondary to UTI, he has history of CAD, COPD, chronic systolic CHF with EF about 30% according to the last echocardiogram. Due to his sepsis condition, he has received volume repletion. Today the patient became dyspneic, diaphoretic, or respiratory distress and was called a code yellow. On my encounter the patient was dyspneic , pale, weak bilaterally knee mottled, O2 sat was 82% on 2 L by NC. Physical exam remarkable for bilateral rales, no fever, bp 179/88, HR 88 bpm. He was placed on BiPAP. Subsequently the patient shows rapid improvement. I have ordered a Boyer catheter to have better diuresis control. Will order chest x- ray and ABG. Will follow up results and notify his attending physician.
[2018-07-21] MEDS: PANTOPRAZOLE 40MG TABLET PO SCH (06:37)
[2018-07-21 06:40] VITALS: BMI 27.2
[2018-07-21] MEDS: CARVEDILOL 6.25 MG TAB PO SCH ×2 (09:00→21:00)
[2018-07-21] MEDS: INSULIN -REGULAR HUMAN 50 UNIT/0.5 ML ML SQ SCH ×4 (09:17→21:00)
[2018-07-21] MEDS: CEFTRIAXONE/SWI 1gm 1 GM/10 ML SYR IV SCH ×2 (09:18→21:00)
[2018-07-21] MEDS: RIVAROXABAN 15 MG TABLET PO SCH (09:18)
[2018-07-21] MEDS: GLIMEPIRIDE 2 MG TABLET PO SCH (09:18)
[2018-07-21] MEDS: DOCOSAHEXANOIC AC/EPA 1000 MG PO SCH ×2 (09:19→21:00)
[2018-07-21] MEDS ORDERED: FUROSEMIDE 40 MG/4 ML VIAL IV SCH (14:00)
[2018-07-21 14:52] VITALS: O2SAT 100
--- NOTE | 2018-07-21 17:00 | PN ---
Subjective: The patient experienced shortness of breath and acute exacerbation of systolic congestiv e heart failure. He became short of breath, was put on BiPAP yesterday, and IV Lasix was given. Now , he feels better. No increased shortness of breath. No chest pain, and he voiced no other complain ts. Objective: VITAL SIGNS: The patient's blood pressure 110/53, pulse 70, temperature 97.8. Heart: Regular rate and rhythm. Chest: Bilateral crackles. Abdomen: Soft, nontender, nondistended. Bowel sounds normoactive. Extremities: No edema. No cyanosis. Peripheral pulses are felt. Neurologic: Alert, oriented, nonfocal. Grossly intact. Head and neck: There was no JVD. Diagnostic Data: A chest x-ray showed pulmonary edema. Assessment And Plan: 1.Acute exacerbation of chronic systolic congestive heart failure. We will put the patient on IV La six, fluid restriction, low-salt diet, and oxygen protocol. He has started to improve. The patient' s last ejection fraction by echo was 30%. 2.Sepsis from cystitis. The patient is on IV ceftriaxone. He is afebrile. He is feeling well from that standpoint. I think that sepsis have caused the exacerbation of heart failure also, however, h e is hemodynamically stable. The sensitivity of Escherichia coli cultured from urine showed sensitiv ity to ceftriaxone, so we will keep that. 3.The patient is wanting to go to a [facility] facility. [facility] were consulted to arr luanne for that. We will keep the rest of his home medication and the rest of his treatment, and we will monitor his electrolytes. Look ord ers for details. MFS/MODL Voice ID: [id number] Report ID: [id number]
[2018-07-21] MEDS: ATORVASTATIN 20 MG TAB PO SCH (22:50)
[2018-07-22 02:29] VITALS: BP 133/64; TEMP 98.4
== END 2018-07-22 00:47 | disposition swing bed (61) | DRG 871 ==
LOC: ER 18:28 → ERHOLD 21:31 → 2ND 21:54
PROVIDERS: ADMIT Internal Medicine; ATTEND Internal Medicine
PROC: 5A09457 Assistance with Respiratory Ventilation, 24-96 Consecutive Hours, Continuous Positive Airway Pressure (ICD-10-PCS; principal; 2018-07-20)
DX: A41.9 Sepsis, unspecified organism (principal); I50.23 Acute on chronic systolic (congestive) heart failure; N30.00 Acute cystitis without hematuria; K50.90 Crohn's disease, unspecified, without complications; I48.91 Unspecified atrial fibrillation; Z79.01 Long term (current) use of anticoagulants; J44.9 Chronic obstructive pulmonary disease, unspecified; E11.9 Type 2 diabetes mellitus without complications; Z79.84 Long term (current) use of oral hypoglycemic drugs; I25.2 Old myocardial infarction; Z95.1 Presence of aortocoronary bypass graft; E86.0 Dehydration; Z95.5 Presence of coronary angioplasty implant and graft; Z95.810 Presence of automatic (implantable) cardiac defibrillator; E78.5 Hyperlipidemia, unspecified; K21.9 Gastro-esophageal reflux disease without esophagitis; M19.90 Unspecified osteoarthritis, unspecified site; I11.0 Hypertensive heart disease with heart failure; B96.20 Unspecified Escherichia coli [E. coli] as the cause of diseases classified elsewhere; I25.119 Atherosclerotic heart disease of native coronary artery with unspecified angina pectoris
CPT/HCPCS: 36415; 70450; 71045; 80048; 81003; 81015; 82550; 82805; 82962; 83735; 83880; 84145; 84484; 85025; 87040; 87077; 87086; 87088; 87186; 93005; 94660; 96361; 96365; 97163; 99285; J0696; J1940; J7030

== ENCOUNTER 2018-10-15 21:04 | Inpatient (IN) | payer OTHER, MEDICARE ==
--- OUTSIDE RECORDS SUMMARY | 2018-10-15 21:09 | XMS REPORT | CCD ---
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
--- OUTSIDE RECORDS SUMMARY | 2018-10-15 21:09 | XMS REPORT | Continuity of Care Document ---
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 12 [facility] pulse generator Replacement of Active 07/14/20 Problem 07/18/2012 pacemaker pulse 12 [facility] generator Insertion of dual Active 07/14/20 Problem 10/02/2016 chamber pacemaker 12 [facility] pulse generator Replacement of Active 07/14/20 Problem 10/02/2016 pacemaker pulse 12 [facility] generator [place], Active 09/07/19 VFIB, CAD, 12 [facility] BRADYCARDIA Atrial Active Problem 07/18/2012 fibrillation [facility] CAD - Coronary Active Problem 07/18/2012 artery disease [facility] DM - Diabetes Active Problem 07/18/2012 mellitus [facility] HTN - Active Problem 07/18/2012 Hypertension [facility] Hyperlipidemia Active Problem 07/18/2012 [facility] PA - Myocardial Active Problem 07/18/2012 infarction [facility] [place] - Ventricular Active Problem 07/18/2012 tachycardia [facility] Afib Active Problem 10/02/2016 [facility] Atrial Active Problem 10/02/2016 fibrillation [facility] CAD - Coronary Active Problem 10/02/2016 artery disease [facility] CHF (<span Active Problem 10/02/2016 MH ID="[id number]" [facility] >Confirmed</span> ) Diabetes Active Problem 10/02/2016 [facility] DM - Diabetes Active Problem 10/02/2016 mellitus [facility] HTN - Active Problem 10/02/2016 Hypertension [facility] Hyperlipidemia Active Problem 10/02/2016 [facility] HLD (<span Resolved Problem 10/02/2016 MH ID="[id number]" [facility] >Confirmed</span> ) HTN (<span Active Problem 10/02/2016 MH ID="[id number]" [facility] >Confirmed</span> ) PA - Myocardial Active Problem 10/02/2016 infarction [facility] PA (<span Active Problem 10/02/2016 MH ID="[id number]" [facility] >Confirmed</span> ) [place] - Ventricular Active Problem 10/02/2016 tachycardia [facility] MUSCLE WEAKNESS Active (GENERALIZED) [facility] WEAKNESS Active [facility] FTNG AUTMTC Active DFIBRILLATOR [facility] VENTRICULAR Active MH FIBRILLATION [facility] COR ATH UNSP VSL Active NTV/GRF [facility] PERSISTENT ATRIAL Active FIBRILLATION [facility] Medications Medication Details Route Status Patient Ordering Order Source Instructions Provider Date acetaminophen 325 mg=1 tab, PO, Active 325 mg oral Q4-6H, PRN Pain, 2016 [facility] tablet X 10 day, # 120 tab, 0 Refill(s), given to patient rivaroxaban 20 20 mg=1 tab, PO, Active mg oral tablet QPM, 0 Refill(s) 2016 [facility] Insulin, 4 unit, SUB-Q, Active Aspart, Human Bedtime, PRN 2016 [facility] Blood Glucose Results, 0 Refill(s) aspirin 81 mg 81 mg=1 tab, PO, Active tablet, enteric Daily, 0 2016 [facility] coated Refill(s) captopril 50 mg 50 mg=1 tab, PO, Active oral tablet TID, 0 Refill(s) 2016 [facility] aspirin 81 mg 81 mg, 1 tab, No Longer tablet, enteric Route: PO, Drug Active 2016 [facility] coated form: ECTAB, Daily, Dosing Weight 84.091, kg, Start date: 09/27/16 9:00:00 WAXING MACHINE OPERATOR HELPER, Duration: 30 day, Stop date: 10/26/16 9:00:00 CSTNotes: Do not crush or chew. (Same As: Ecotrin) Xarelto 20 mg, 1 tab, No Longer Route: PO, Drug Active 2016 [facility] form: TAB, QPM, Dosing Weight 84.091, kg, first dose now, Start date: 09/26/16 19:00:00 WAXING MACHINE OPERATOR HELPER, Duration: 30 day, Stop date: 10/26/16 17:00:00 CSTNotes: (Same as: Xarelto) Administer with food Insulin, 1 unit, 0.01 mL, No Longer Aspart, Human Route: SUB-Q, Active 2016 [facility] Drug form: SOLN, Bedtime, Dosing Weight 84.091, kg, PRN Blood Glucose Results, Start date: 09/26/16 17:21:00 WAXING MACHINE OPERATOR HELPER, Duration: 30 day, Stop date: 10/26/16 17:20:00 CSTNotes: Roll in palms of hands gently; Do not shake vigorously. (Same as: NovoLOG) "single patient use only" WASTE: F/P - Black; E - Municipal Trash Bin Stable for 28 days at room temperature. Expires in days from Dat e Glucagon 1 mg, Route: IM, No Longer Drug form: Active 2016 [facility] PDR/INJ, PRN, Dosing Weight 84.091, kg, PRN Blood Glucose Results, Start date: 09/26/16 17:21:00 WAXING MACHINE OPERATOR HELPER, Duration: 30 day, Stop date: 10/26/16 17:20:00 WAXING MACHINE OPERATOR HELPER Dextrose 50% 25 gm, 50 mL, No Longer Syringe Route: IVP, Drug Active 2016 [facility] Form: INJ, Dosing Weight 84.091, kg, PRN, PRN Blood Glucose Results, Start date: 09/26/16 17:21:00 WAXING MACHINE OPERATOR HELPER, Duration: 30 day, Stop date: 10/26/16 17:20:00 WAXING MACHINE OPERATOR HELPER Minocycline 100 mg, 1 cap, No Longer Route: PO, Drug Active 2016 [facility] form: CAP, [id number], Dosing Weight 84.091, kg, Start date: 09/26/16 13:00:00 WAXING MACHINE OPERATOR HELPER, Duration: 7 day, Stop date: 10/03/16 1:00:00 CSTNotes: (Same as:Minocin) No milk/antacids/iro n. Vancomycin 1,000 mg, Route: Inactive IVPB, [id number], 2016 [facility] Dosing Weight 84.091, kg, Start date: 09/26/16 5:00:00 WAXING MACHINE OPERATOR HELPER, Duration: 30 day, Stop date: 10/25/16 17:00:00 CSTNotes: TIME CRITICAL MEDICATION (Same As: Vancocin) Infusion rate 2001 mg: infuse over 2.5 hours MEDICATION WASTE Product Size: 1000 mg Product Wasted: ___ mg digoxin 250 mcg 0.25 mg, 1 tab, No Longer (0.25 mg) oral Route: PO, Drug Active 2016 [facility] tablet form: TAB, [id number], Dosing Weight 84.091, kg, 4 doses., Start date: 09/25/16 21:00:00 WAXING MACHINE OPERATOR HELPER, Duration: 4 doses or times, Stop date: 09/26/16 21:00:00 CSTNotes: Take on an Empty Stomach (Same as: Lanoxin) Coreg 12.5 mg, Route: Inactive PO, Drug form: 2016 [facility] TAB, Q12H, Dosing Weight 84.091, kg, Start date: 09/25/16 21:00:00 WAXING MACHINE OPERATOR HELPER, Duration: 30 day, Stop date: 10/25/16 9:00:00 WAXING MACHINE OPERATOR HELPER digoxin 0.5 mg, 1 tab, Inactive Route: PO, Drug 2016 [facility] form: TAB, Q6Hnow, Start date: 09/25/16 21:00:00 WAXING MACHINE OPERATOR HELPER, Duration: 4 doses or times, Stop date: 09/26/16 15:00:00 CSTNotes: Take on an Empty Stomach (Same as: Lanoxin) Amiodarone 300 mg, Route: Inactive IV, ONCE, Dosing 2016 [facility] Weight 84.091, kg, Start date: 09/25/16 13:31:00 WAXING MACHINE OPERATOR HELPER, Stop date: 09/25/16 13:31:00 WAXING MACHINE OPERATOR HELPER MaxEPA 1 gm, 1 cap, No Longer Route: PO, Drug Active 2016 [facility] form: CAP, Daily, Start date: 09/25/16 9:00:00 WAXING MACHINE OPERATOR HELPER, Duration: 30 day, Stop date: 10/24/16 9:00:00 CSTNotes: (Same as: MaxEPA, Electra 3 fish oil ) Non-Formulary Drug Protonix 40 mg, 1 tab, No Longer Route: PO, Drug Active 2016 [facility] form: ECTAB, Daily, Start date: 09/25/16 9:00:00 WAXING MACHINE OPERATOR HELPER, Duration: 30 day, Stop date: 10/24/16 9:00:00 CSTNotes: Tablet should not be chewed or crushed. (Same as: Protonix) Omeprazole 20 mg, Route: PO, No Longer Drug form: DRC, Active 2016 [facility] Daily, Dosing Weight 84.091, kg, Start date: 09/25/16 9:00:00 WAXING MACHINE OPERATOR HELPER, Duration: 30 day, Stop date: 10/24/16 9:00:00 WAXING MACHINE OPERATOR HELPER Fish Oil 1,200 mg, Route: No Longer PO, Drug form: Active 2016 [facility] CAP, Daily, Dosing Weight 84.091, kg, Start date: 09/25/16 9:00:00 WAXING MACHINE OPERATOR HELPER, Duration: 30 day, Stop date: 10/24/16 9:00:00 WAXING MACHINE OPERATOR HELPER glimepiride 2 mg, 1 tab, No Longer Route: PO, Drug Active 2016 [facility] form: TAB, Breakfast, Dosing Weight 84.091, kg, Start date: 09/25/16 8:00:00 WAXING MACHINE OPERATOR HELPER, Duration: 30 day, Stop date: 10/24/16 8:00:00 CSTNotes: (Same as: Amaryl) Lovastatin 40 mg, Route: PO, Inactive Drug form: TAB, 2016 [facility] Bedtime, Dosing Weight 84.091, kg, Start date: 09/24/16 21:00:00 WAXING MACHINE OPERATOR HELPER, Duration: 30 day, Stop date: 10/23/16 21:00:00 WAXING MACHINE OPERATOR HELPER Lipitor 20 mg, 1 tab, No Longer Route: PO, Drug Active 2016 [facility] form: TAB, Bedtime, Start date: 09/24/16 21:00:00 WAXING MACHINE OPERATOR HELPER, Duration: 30 day, Stop date: 10/23/16 21:00:00 CSTNotes: (Same As: Lipitor) Lovenox 80 mg, 0.8 mL, No Longer Route: SUB-Q, Active 2016 [facility] Drug form: INJ, [id number], Dosing Weight 84.091, kg, For CrCL Notes: Nurse to ensure documentation of patient education per anticoagulation policy. (Same as: Lovenox) Ranexa 500 mg, 1 tab, No Longer Route: PO, Drug Active 2016 [facility] form: TAB, BID, Dosing Weight 84.091, kg, Start date: 09/24/16 19:38:00 WAXING MACHINE OPERATOR HELPER, Duration: 30 day, Stop date: 10/24/16 17:00:00 CSTNotes: Same as Ranexa "Do Not Crush" carvedilol 6.25 mg, 1 tab, No Longer Route: PO, Drug Active 2016 [facility] form: TAB, BID, Dosing Weight 84.091, kg, Start date: 09/24/16 19:38:00 WAXING MACHINE OPERATOR HELPER, Duration: 30 day, Stop date: 10/24/16 17:00:00 CSTNotes: Give with food. (Same As: Coreg) Amiodarone 200 mg, 1 tab, No Longer Route: PO, Drug Active 2016 [facility] form: TAB, BID, Dosing Weight 84.091, kg, Start date: 09/24/16 19:37:00 WAXING MACHINE OPERATOR HELPER, Duration: 30 day, Stop date: 10/24/16 17:00:00 CSTNotes: (Same as: Cordarone) Captopril 50 mg, 1 tab, No Longer Route: PO, Drug Active 2016 [facility] form: TAB, TID, Dosing Weight 84.091, kg, Start date: 09/24/16 19:37:00 WAXING MACHINE OPERATOR HELPER, Duration: 30 day, Stop date: 10/24/16 17:00:00 CSTNotes: Give on empty stomach. 1 hour before meal. (Same As: Capoten) Nitroglycerin 0.4 mg, 1 tab, No Longer 0.4 MG Route: SL, Drug Active 2016 [facility] Sublingual form: TAB, Q5Min, Tablet Dosing Weight 84.091, kg, PRN Chest Pain, Start date: 09/24/16 19:18:00 WAXING MACHINE OPERATOR HELPER, Duration: 30 day, Stop date: 10/24/16 19:17:00 CSTNotes: (Same as:Nitroquick, Nitrostat) "Do Not Crush" Sublingual tablet glimepiride 2 2 mg=1 tab, PO, No Longer mg oral tablet Breakfast, # 30 Active 2016 [facility] tab, 0 Refill(s) Nitroglycerin 0.4 mg=1 tab, SL, Active 0.4 MG Q5Min, PRN Chest 2016 [facility] Sublingual pain, Give up to Tablet 3 doses. Call 911 if pain persists., # 100 tab, 0 Refill(s) sotalol 240 mg 240 mg=1 tab, PO, Inactive oral tablet Daily, # 180 tab, 2017 [facility] 0 Refill(s) lovastatin 40 40 mg=1 tab, PO, Active mg oral tablet Bedtime, # 30 2017 [facility] tab, 0 Refill(s) Ranexa 500 mg, PO, BID, Active 0 Refill(s) 2016 [facility] captopril 50 mg 50 mg=1 tab, PO, No Longer oral tablet TID, # 60 tab, 0 Active 2016 [facility] Refill(s) Fish Oil 1200 1,200 mg=1 cap, Active mg oral capsule PO, Daily, 0 2017 [facility] Refill(s) rivaroxaban 20 20 mg=1 tab, PO, Inactive MG Oral Tablet QPM, # 30 tab, 3 2017 [facility] [Xarelto] Refill(s) omeprazole 20 20 mg=1 cap, PO, Active mg oral delayed Daily, # 30 cap, 2017 [facility] release capsule 0 Refill(s) carvedilol 6.25 6.25 mg=1 tab, Active mg oral tablet PO, BID, # 180 2017 [facility] tab, 0 Refill(s) Morphine 2 mg, 0.5 mL, No Longer Route: IVP, Drug Active 2016 [facility] form: SOLN, Q4H, Dosing Weight 98.182, kg, PRN Pain Score 7-10, Start date: 09/24/16 0:39:00 WAXING MACHINE OPERATOR HELPER, Duration: 30 day, Stop date: 10/24/16 0:38:00 CSTNotes: (Same as:MORPhine Sulfate) Docusate 100 mg, 1 cap, No Longer Route: PO, Drug Active 2016 [facility] form: CAP, BID, Dosing Weight 98.182, kg, PRN Constipation, Start date: 09/24/16 0:39:00 WAXING MACHINE OPERATOR HELPER, Duration: 30 day, Stop date: 10/24/16 0:38:00 CSTNotes: (Same as: Colace) (Do Not Crush) Ondansetron 4 mg, 2 mL, No Longer Route: IVP, Drug Active 2016 [facility] form: INJ, Q6H, Dosing Weight 98.182, kg, PRN Nausea & Vomiting, Start date: 09/24/16 0:39:00 WAXING MACHINE OPERATOR HELPER, Duration: 30 day, Stop date: 10/24/16 0:38:00 CSTNotes: (Same as: Olegario) MEDICATION WASTE Product Size: 4 mg Product Wasted: ___ mg Keflex 500 mg, 1 cap, PO No Longer Jalal Route: PO, Drug Active 2011 [facility] form: CAP, [id number], Start date: 07/15/12 14:00:00, Duration: 30 day, Stop date: 08/14/12 8:00:00 MaxEPA 1 gm, 1 cap, PO No Longer Jalal Route: PO, Drug Active 2011 [facility] form: CAP, BID, Start date: 07/15/12 9:00:00, Duration: 30 day, Stop date: 08/13/12 17:00:00 Dulcolax 5 mg, 1 tab, PO No Longer Jalal Laxative Route: PO, Drug Active 2011 [facility] form: ECTAB, Daily, Start date: 07/15/12 9:00:00, Duration: 30 day, Stop date: 08/13/12 9:00:00 docusate sodium 100 mg, 1 cap, PO No Longer Jalal 100 mg oral Route: PO, Drug Active 2011 [facility] capsule form: CAP, BID, Start date: 07/15/12 9:00:00, Duration: 30 day, Stop date: 08/13/12 17:00:00 Restoril 7.5 mg, 1 cap, PO No Longer Jalal Route: PO, Drug Active 2011 [facility] form: CAP, Bedtime, PRN Sleep, Start date: 07/14/12 21:00:00, Duration: 30 day, Stop date: 08/13/12 20:59:00 Ranexa 500 mg 500 mg, 1 tab, PO No Longer Jalal oral tablet, Route: PO, Drug Active 2011 [facility] extended form: TAB, BID, release Start date: 07/14/12 17:00:00, Duration: 30 day, Stop date: 08/13/12 9:00:00 Lipitor 20 mg, 1 tab, PO No Longer Jalal Route: PO, Drug Active 2011 [facility] form: TAB, QPM, Start date: 07/14/12 17:00:00, Duration: 30 day, Stop date: 08/12/12 17:00:00 Betapace 240 mg, 3 tab, PO No Longer Jalal Route: PO, Drug Active 2011 [facility] form: TAB, BID, Start date: 07/14/12 17:00:00, Duration: 30 day, Stop date: 08/13/12 9:00:00 Protonix 40 mg, 1 tab, PO No Longer Jalal Route: PO, Drug Active 2011 [facility] form: ECTAB, Before Dinner, Start date: 07/14/12 16:30:00, Duration: 30 day, Stop date: 08/12/12 16:30:00 cefazolin + 1 gm, Route: IVPB No Longer Jalal Sodium Chloride IVPB, [id number], Active 2011 [facility] 0.9% IV 100 mL Start date: 07/14/12 16:00:00, Duration: 3 doses or times, Stop date: 07/15/12 8:00:00 aspirin 81 mg 81 mg, 1 tab, CHEW No Longer Jalal tablet, Route: CHEW, Drug Active 2011 [facility] chewable form: CHEWTAB, Daily, Start date: 07/14/12 13:45:00, Duration: 30 day, Stop date: 08/13/12 9:00:00 captopril 50 mg, 2 tab, PO No Longer Jalal Route: PO, Drug Active 2011 [facility] form: TAB, TID, Start date: 07/14/12 13:45:00, Duration: 30 day, Stop date: 08/13/12 13:00:00 Amaryl 1 mg, 1 tab, PO No Longer Jalal Route: PO, Drug Active 2011 [facility] form: TAB, Daily, Start date: 07/14/12 13:44:00, Duration: 30 day, Stop date: 08/13/12 9:00:00 morphine 2 mg, 0.4 mL, IVP No Longer Jalal Sulfate Route: IVP, Drug Active 2011 [facility] form: INJ, Q3H, PRN Pain Score 7-10, Start date: 07/14/12 13:39:00, Duration: 30 day, Stop date: 08/13/12 13:38:00 acetaminophen-h 2 tab, Route: PO, PO No Longer Jalal ydrocodone 325 Drug Form: TAB, Active 2011 [facility] mg-5 mg oral Q4H, PRN Pain tablet Score 4-6, Start date: 07/14/12 13:38:00, Duration: 30 day, Stop date: 08/13/12 13:37:00 acetaminophen 1,000 mg, 2 tab, PO No Longer Jalal Route: PO, Drug Active 2011 [facility] form: TAB, Q4H, PRN Pain Score 1-3, Start date: 07/14/12 13:37:00, Duration: 30 day, Stop date: 08/13/12 13:36:00 Zofran 4 mg, 2 mL, IVP No Longer Jalal Route: IVP, Drug Active 2011 [facility] form: INJ, Q4H, PRN Nausea, Start date: 07/14/12 13:37:00, Duration: 30 day, Stop date: 08/13/12 13:36:00 Sodium Chloride 250 mL, Route: IVPB No Longer Jalal 0.9% IV IVPB, Start date: Active 2011 [facility] 07/14/12 13:35:00, Duration: 30 day, Stop date: 08/13/12 13:34:00, PRN Line Flush BD Normal 10 mL, Route: IVP No Longer Mineshlal Saline Flush IVP, Drug Form: Active 2011 [facility] INJ, PRN, PRN Line Flush, Start date: 07/14/12 13:35:00, Duration: 30 day, Stop date: 08/13/12 13:34:00 Allergies, Adverse Reactions, Alerts Substance Category Reaction Severity Reaction Status Date Comments Source type Reported NKFA Assertion Drug Active allergy [facility] sulfa drugs Assertion N/V, Drug Active Allergy to allergy [facility] sulfa drugs Immunizations Immunization Date Site Status Last Comments Source Given Updated pneumococcal Left completed Dot [facility] 13-valent 7 Deltoid s vaccine Results Order Name Results Value Reference Date Interpretation Comments Source Range Chest Chest 1view Patient Name: GARFIELD ABREU 09/25 - 1view DX DX /2016 - [facility] : 1935; Age: 81 years Male MR: [id number] Read by: Arjun You MD Dictated Date/time: 09/25/16 20:51 Electronically Signed by: Arjun You MD 09/25/16 20:54 FINAL REPORT Study: Chest 1view DX Order Time: 09/25/2016 8:24 PM WAXING MACHINE OPERATOR HELPER Clinical Indication: Line Placement. COMPARISON: September 2016. [...] 0.0 - 2.5 09/24 MH ENZYMES /2016 [facility] CARDIAC Troponin-I null 0.00 - 09/24 ENZYMES 0.40 [facility] CARDIAC CK MB 0.8 ng/mL 0.5 - 3.6 09/24 MH ENZYMES /2016 [facility] CARDIAC Total CK 28 unit/L - 09/24 MH ENZYMES /2016 [facility] CARDIAC Total CK 23 unit/L - 09/24 MH ENZYMES [facility] CARDIAC Troponin-I 0.02 ng/mL 0.00 - 09/24 MH ENZYMES 0.40 /2017 [facility] CHEM PANEL eGFR 46 09/24 Result Comment: [...] is not recommended in the following populations: [facility] 3m2 Individuals with unstable creatinine concentrations, including [...] Lvl 9.5 mg/dL 8.5 - 10.5 09/24 [facility] CHEM PANEL AGAP 11.1 meq/L 10.0 - 09/24 MH 20.0 [facility] CHEM PANEL BUN 25 mg/dL 7 - 22 09/24 [facility] CHEM PANEL Creatinine 1.40 mg/dL 0.50 - 09/24 MH Lvl 1.40 [facility] CHEM PANEL Glucose Lvl 63 mg/dL 70 - 99 09/24 [facility] CHEM PANEL Potassium 4.1 meq/L 3.5 - 5.1 09/24 MH Lvl /2016 [facility] CHEM PANEL Chloride Lvl 102 meq/L 95 - 109 09/24 [facility] CHEM PANEL CO2 29 meq/L 24 - 32 09/24 [facility] CHEM PANEL Sodium Lvl 138 meq/L 135 - 145 09/24 [facility] HEMATOLOGY WBC 8.2 K/CMM 3.7 - 10.4 09/24 [facility] HEMATOLOGY Hgb 12.1 g/dL 14.0 - 09/24 18. [facility] HEMATOLOGY RBC 3.98 M/CMM 4.70 - 09/24 MH 6.10 [facility] HEMATOLOGY Hct 36.6 % 42.0 - 09/24 MH 54.0 [facility] HEMATOLOGY MCV 91.9 fL 80.0 - 09/24 94.0 [facility] HEMATOLOGY MCH 30.5 pg 27.0 - 09/24 MH 31.0 [facility] HEMATOLOGY MCHC 33.1 g/dL 32.0 - 09/24 MH 36.0 [facility] HEMATOLOGY RDW 15.7 % 11.5 - 09/24 MH 14. [facility] HEMATOLOGY Platelet 232 K/CMM 133 - 450 09/24 [facility] HEMATOLOGY MPV 7.5 fL 7.4 - 10.4 09/24 [facility] HEMATOLOGY Segs 76.0 % 45.0 - 09/24 MH 75.0 [facility] HEMATOLOGY Lymphocytes 14.1 % 20.0 - 09/24 MH 40.0 /2016 [facility] HEMATOLOGY Monocytes 7.7 % 2.0 - 12.0 09/24 [facility] HEMATOLOGY Basophils 0.4 % 0.0 - 1.0 09/24 [facility] HEMATOLOGY Lymphocytes 1.2 K/CMM 1.0 - 5.5 09/24 MH # /2017 [facility] HEMATOLOGY Eosinophils 1.8 % 0.0 - 4.0 09/24 [facility] HEMATOLOGY Segs-Bands # 6.2 K/CMM 1.5 - 8.1 09/24 [facility] Monocytes # 0.6 K/CMM 0.0 - 0.8 09/24 [facility] HEMATOLOGY Eosinophils 0.1 K/CMM 0.0 - 0.5 09/24 # /2016 [facility] Knee 1-2 Knee 1-2 Study: Portable bilateral knees, 2 views 09/24 - Views Views [facility] Bilateral Bilateral DX Clinical Indication: Bilateral knee [...] Osteoarthritis as described. No acute abnormality. SL: [id number] Chest Chest 1view Study: Chest 1view DX portable 09/24/2016 0310 hours - 1view DX DX /2016 - [facility] Clinical Indication: Chest pain; Read by: Kang [...] or significant pleural effusion is seen. SL: [id number] BEDSIDE Gluc POC 136 mg/dL 70 - 99 07/14 HI 1Interpretive GLUCOSE [facility] Data: [facility] TESTING Upper Reportable Limit: 200 mg/dL. BEDSIDE Comment1 Notify 07/14 NA GLUCOSE RN/ /2011 [facility] TESTING BEDSIDE Gluc POC 117 mg/dL 70 - 99 07/14 HI 2Interpretive GLUCOSE [facility]sc[facility] /2011 Data: [facility] TESTING Upper Reportable Limit: 200 mg/dL. Vital Signs Vital Sign Value Date Comments Source Temperature Oral (F) 98 F 09/29/2016 [facility] Heart Rate 81 09/29/2016 [facility] Respitory Rate 16 09/29/2016 [facility] Systolic (mm Hg) 95 09/29/2016 [facility] Diastolic (mm Hg) 66 09/29/2016 [facility] Respitory Rate 16 09/29/2016 [facility] Systolic (mm Hg) 127 09/29/2016 [facility] Diastolic (mm Hg) 75 09/29/2016 [facility] Heart Rate 81 09/29/2016 [facility] Temperature Oral (F) 97.4 F 09/29/2016 [facility] Heart Rate 51 09/29/2016 [facility] Temperature Oral (F) 98.1 F 09/29/2016 [facility] Respitory Rate 16 09/29/2016 [facility] Systolic (mm Hg) 107 09/29/2016 [facility] Diastolic (mm Hg) 56 09/29/2016 [facility] Weight 84.091 09/24/2016 [facility] BMI Calculated 27.38 09/24/2016 [facility] Height 175.26 cm 09/24/2016 [facility] Heart Rate 59 07/16/2012 [facility] Temperature Oral (F) 98.1 F 07/16/2012 [facility] Diastolic (mm Hg) 74 07/16/2012 [facility] Systolic (mm Hg) 133 07/16/2012 [facility] Respitory Rate 18 07/16/2012 [facility] Heart Rate 60 07/16/2012 [facility] Respitory Rate 18 07/16/2012 [facility] Temperature Oral (F) 98.1 F 07/16/2012 [facility] Diastolic (mm Hg) 66 07/16/2012 [facility] Systolic (mm Hg) 118 07/16/2012 [facility] Respitory Rate 18 07/16/2012 [facility] Systolic (mm Hg) 128 07/16/2012 [facility] Temperature Oral (F) 97.8 F 07/16/2012 [facility] Diastolic (mm Hg) 70 07/16/2012 [facility] Heart Rate 59 07/16/2012 [facility] Weight 98.182 07/14/2012 [facility] Height 175.26 cm 07/14/2012 [facility] Encounters Location Location Encounter Encounter Reason Attending ADM DC Status Source Details Type Number For Visit Provider Date Date JYOTI [id number] END OF MARINA 07/14 07/16 Active [facility] [place], JALAL /2011 [facility] VFIB, t CAD, BRADYCARD [place] [facility] Inpatient [id number] [place] 09/25 09/30 Frank Nwadike /2016 [facility] Procedures Procedure Code Date Perfomer Comments Source Appendectomy [id number] [facility] CABG - Coronary [id number] [facility] artery bypass graft Cataract surgery [id number] [facility] Implantation of [id number] [facility] automatic cardioverter/defib rillator, total system (AICD) Rotator cuff [id number] [facility] repair
[2018-10-15 22:28] LABS: Absolute Lymphocytes (CBC) 0.5 K/uL (0.7-4.9); Absolute Monocytes 0.8 K/uL (0.1-1.3); Absolute Neutrophil 18.4 K/uL (1.8-8.0); Eosinophils % 0.2 % (0-4.4); Hematocrit 35.5 % (39.6-49.0); Lymphocytes % 2.4 % (15.3-44.8); MPV 7.3 fL (7.6-11.3); Monocytes % 4.2 % (3.3-12.3); RBC Red Blood Cell Count 4.35 M/uL (4.33-5.43)
[2018-10-15 22:47] LABS: Albumin 3.5 g/dL (3.4-5.0); Bilirubin Direct 0.3 mg/dL (0-0.2); Bilirubin Total 0.7 mg/dL (0.2-1.0); CKMB Creatine Kinase MB 2.2 ng/mL (0.3-3.6); Potassium 4.8 mmol/L (3.5-5.1); Protein, Total 8.8 g/dL (6.4-8.2); Troponin (Emerg Dept Use Only) 0.08 ng/mL (0.0-0.045)
--- NOTE | 2018-10-15 23:17 | EDPHYS ---
Physician Documentation [facility] Name: Екатерина Hare Age: 83 yrs Sex: Male : 1935 Arrival Date: 10/15/2018 Time: 21:14 Bed 3 Private MD: ED Physician Kang Oneal HPI: 10/15 22:29 This 83 yrs old Male presents to ER via EMS with complaints of Shortness Of wa Breath. 22:29 The patient has shortness of breath at rest. Onset: The symptoms/episode began/occurred wa just prior to arrival. Duration: The symptoms are continuous, but are steadily getting better. The patient's shortness of breath is aggravated by exertion. Associated signs and symptoms: Pertinent negatives: chest pain, non-productive cough, productive cough, dizziness, fever, vomiting. Severity of symptoms: At their worst the symptoms were severe in the emergency department the symptoms have improved markedly. The patient has experienced similar episodes in the past, a few times. The patient has been recently seen by a physician: the patient's primary care provider. 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 denies CP. EMS noted 80's sats. 92% with NC. h/o CHF. Historical: - Allergies: 21:25 Sulfa (Sulfonamide Antibiotics); ak1 - Home Meds: 21:25 omeprazole 20 mg Oral cpDR 1 cap once daily [Active]; nitroglycerin 0.4 mg/hr Topical ak1 pt24 1 patch once daily [Active]; Fish Oil Oral [Active]; glimepiride 1 mg Oral tab 1 tab once daily [Active]; lovastatin 40 mg Oral tab 1 tab nightly [Active]; Plavix 75 mg Oral tab 1 tab once daily [Active]; Ranexa 500 mg Oral Tb12 1 tab 2 times per day [Active]; carvedilol 12.5 mg oral tab [Active]; docusate sodium 100 mg Oral cap 1 cap once daily [Active]; - PMHx: 21:25 Atrial Fib; cardiomyopathy; CAD; CHF; COPD; Diabetes - NIDDM; Pneumonia; Myocardial ak1 infarction; Pacemaker; Hypertension; Hyperlipidemia; - PSHx: 21:25 CABG; ak1 - Immunization history:: Adult Immunizations unknown. - Social history:: Smoking status: unknown. - Ebola Screening: : No symptoms or risks identified at this time. - Family history:: not pertinent. - Hospitalizations: : No recent hospitalization is reported. ROS: 22:32 Constitutional: Negative for fever, chills, and weight loss, Eyes: Negative for injury, wa pain, redness, and discharge, ENT: Negative for injury, pain, and discharge, Neck: Negative for injury, pain, and swelling, Abdomen/GI: Negative for abdominal pain, nausea, vomiting, diarrhea, and constipation, Back: Negative for injury and pain, : Negative for injury, bleeding, discharge, and swelling, MS/Extremity: Negative for injury and deformity, Skin: Negative for injury, rash, and discoloration, Neuro: Negative for headache, weakness, numbness, tingling, and seizure, Psych: Negative for depression, anxiety, suicide ideation, homicidal ideation, and hallucinations. 22:32 Cardiovascular: Negative for chest pain, edema, orthopnea, palpitations, paroxysmal nocturnal dyspnea. 22:32 Respiratory: Positive for shortness of breath, on exertion. Exam: 22:32 Constitutional: This is a well developed, well nourished patient who is awake, alert, wa and in no acute distress. Head/Face: Normocephalic, atraumatic. Eyes: Pupils equal round and reactive to light, extra-ocular motions intact. Lids and lashes normal. Conjunctiva and sclera are non-icteric and not injected. Cornea within normal limits. Periorbital areas with no swelling, redness, or edema. ENT: Nares patent. No nasal discharge, no septal abnormalities noted. Tympanic membranes are normal and external auditory canals are clear. Oropharynx with no redness, swelling, or masses, exudates, or evidence of obstruction, uvula midline. Mucous membranes moist. Neck: Trachea midline, no thyromegaly or masses palpated, and no cervical lymphadenopathy. Supple, full range of motion without nuchal rigidity, or vertebral point tenderness. No Meningismus. Chest/axilla: Normal chest wall appearance and motion. Nontender with no deformity. No lesions are appreciated. Abdomen/GI: Soft, non-tender, with normal bowel sounds. No distension or tympany. No guarding or rebound. No evidence of tenderness throughout. Back: No spinal tenderness. No costovertebral tenderness. Full range of motion. Skin: Warm, dry with normal turgor. Normal color with no rashes, no lesions, and no evidence of cellulitis. MS/ Extremity: Pulses equal, no cyanosis. Neurovascular intact. Full, normal range of motion. Neuro: Awake and alert, GCS 15, oriented to person, place, time, and situation. Cranial nerves II-XII grossly intact. Motor strength 5/5 in all extremities. Sensory grossly intact. Cerebellar exam normal. Normal gait. Psych: Awake, alert, with orientation to person, place and time. Behavior, mood, and affect are within normal limits. 22:32 Cardiovascular: Rate: normal, Rhythm: regular, Pulses: no pulse deficits are appreciated, Heart sounds: normal, Edema: is not appreciated, JVD: is not appreciated. 22:32 Respiratory: mild respiratory distress is noted, Respirations: tachypnea, Breath sounds: rhonchi, that are moderate, are heard diffusely, Respiratory rate: tachypneic Vital Signs: 21:14 BP 155 / 80; Pulse 91; Resp 26; Temp 98.6(O); Pulse Ox 79% on R/A; Weight 83.91 kg (R); ak1 Height 5 ft. 10 in. (177.80 cm) (R); Pain 0/10; 22:04 BP 132 / 67; Pulse 86; Resp 24; Temp 98.6(A); Pulse Ox 99% on BiPAP; ak1 23:06 Pulse 71; Resp 24; Pulse Ox 99% on BiPAP; ak1 23:57 BP 110 / 58; Pulse 74; Resp 19; Pulse Ox 100% on BiPAP; ak1 10/16 00:30 BP 121 / 63; Pulse 72; Resp 23; Temp 98.4(A); Pulse Ox 100% on BiPAP; ak1 10/15 21:14 Body Mass Index 26.54 (83.91 kg, 177.80 cm) ak MDM: 10/15 21:30 Patient medically screened. wa 22:33 Differential diagnosis: CHF exacerbation, Myocardial Infarction pneumonia, pulmonary wa edema, Pulmonary Embolism Sepsis Unstable Angina. 23:11 Data reviewed: vital signs, nurses notes, lab test result(s), EKG, radiologic studies. wa Test interpretation: by ED physician or midlevel provider: EKG: noted HR 89. ventricular paced rhythm noted. Labs noted for renal insufficiency. hyperglycemia. anemia. leukocytosis. elevated lactate at 3. elevated troponin 0.08. CXR: noted pulm edema. . Response to treatment: the patient's symptoms have markedly improved after treatment. Physician consultation: Deanna Willis MD. Admission orders: after a detailed discussion of the patient's condition and case, the admit orders are written by me. Special discussion: called Dr. Willis at 2314 hrs. awaiting call back. will admit for CHF exacerbation. suspect NSTEMI as well. ASA given. will give a dose of lasix. consider nitro prn. 10/15 21:32 Order name: Basic Metabolic Panel; Complete Time: 23:05 10/15 21:32 Order name: Blood Culture Adult (2) 10/15 21:32 Order name: CBC with Diff 10/15 21:32 Order name: Ckmb; Complete Time: 23:07 10/15 21:32 Order name: CPK; Complete Time: 23:06 10/15 21:32 Order name: Lactate; Complete Time: 23:06 10/15 21:32 Order name: LFT's; Complete Time: 23:06 10/15 21:32 Order name: Lipase; Complete Time: 23:07 10/15 21:32 Order name: Procalcitonin 10/15 21:32 Order name: Protime (+inr) 10/15 21:32 Order name: Ptt, Activated 10/15 21:32 Order name: Troponin (emerg Dept Use Only); Complete Time: 23:06 10/15 21:33 Order name: Urine Microscopic Only 10/15 21:42 Order name: Flu; Complete Time: 23:05 al 10/15 21:33 Order name: Chest Single View XRAY 10/15 21:33 Order name: Cardiac monitoring; Complete Time: 22:00 10/15 21:33 Order name: BIPAP ak1 10/15 23:07 Order name: BNP al 10/15 23:18 Order name: Manual Differential EDMS 10/16 00:29 Order name: Basic Metabolic Panel EDMS 10/16 00:29 Order name: Basic Metabolic Panel EDMS 10/16 00:29 Order name: CBC with Automated Diff EDMS 10/16 00:29 Order name: CBC with Automated Diff EDMS 10/16 00:29 Order name: NT PRO-BNP EDMS 10/16 00:29 Order name: NT PRO-BNP [facility] 10/16 00:29 Order name: Troponin I [facility] 10/16 00:29 Order name: Troponin I [facility] 10/16 00:29 Order name: Troponin I [facility] 10/15 21:33 Order name: EKG - Nurse/Tech; Complete Time: 22:01 aj 10/15 21:33 Order name: Labs collected and sent; Complete Time: 23:28 aj 10/15 21:33 Order name: O2 Per Protocol; Complete Time: 22: aj 10/15 21:33 Order name: O2 Sat Monitoring; Complete Time: 22:01 Administered Medications: 23:20 Drug: Aspirin Chewable Tablet 324 mg Route: PO; [facility] 23:27 Follow up: Response: No adverse reaction; No adverse reaction. pt could not chew due to ak1 not having his teeth in, pt swallowed pills. 23:43 Drug: Lasix 40 mg Route: IVP; Site: left antecubital; [facility] 23:56 Follow up: Response: No adverse reaction; pt with urinal at bedside. ak1 Disposition: 23:16 Critical Care:. wa Disposition: 10/15/18 23:16 Hospitalization ordered by Deanna Willis for Inpatient Admission. Preliminary diagnosis are Acute Dyspnea, CHF Exacerbation. - Bed requested for Telemetry/MedSurg (Inpatient). - Status is Inpatient Admission. ak1 - Condition is Stable. - Problem is an acute exacerbation. - Symptoms have improved. UTI on Admission? No Critical care time excluding procedures: 23:16 Critical care time: Bedside Care: 15 minutes, Consultation: 5 minutes, Family wa Intervention: 10 minutes. Total time: 30 minutes Signatures: Dispatcher [employer] EDPriti Holland RN RN kl Myers, Amanda, RN RN aj Krenek, Amber, RN RN ak1 Kang Oneal MD MD wa Corrections: (The following items were deleted from the chart) 10/16 00:27 10/15 23:16 Hospitalization Ordered by Deanna Willis MD for Inpatient Admission. marcella Preliminary diagnosis is Acute Dyspnea; CHF Exacerbation. Bed requested for Telemetry/MedSurg (Inpatient). Status is Inpatient Admission. Condition is Stable. Problem is an acute exacerbation. Symptoms have improved. UTI on Admission? No. wa 10/16 00:43 00:27 10/15/2018 23:16 Hospitalization Ordered by Deanna Willis MD for Inpatient ak1 Admission. Preliminary diagnosis is Acute Dyspnea; CHF Exacerbation. Bed requested for Telemetry/MedSurg (Inpatient). Status is Inpatient Admission. Condition is Stable. Problem is an acute exacerbation. Symptoms have improved. UTI on Admission? No. kl
--- NOTE | 2018-10-15 23:17 | ER ---
Nurse's Notes [facility] Name: Екатерина Hare Age: 83 yrs Sex: Male : 1935 Arrival Date: 10/15/2018 Time: 21:14 Bed 3 Private MD: Diagnosis: Acute Dyspnea;CHF Exacerbation Presentation: 10/15 21:15 Presenting complaint: EMS states: SOB since 183. pt seen at [place] today with no ak1 complaints or complications. pt does not use O2 at home. pt ambulates with a walker and/or cane at home. Transition of care: patient was not received from another setting of care. Onset of symptoms was October 15, 2018. Risk Assessment: Do you want to hurt yourself or someone else? Patient reports no desire to harm self or others. Initial Sepsis Screen: Does the patient meet any 2 criteria? RR > 20 per min. HR > 90 bpm. Care prior to arrival: None. 21:15 Method Of Arrival: EMS: [facility] ak 21:15 Acuity: NICOLE 2 ak1 23:58 Initial Sepsis Screen: Does the patient have a suspected source of infection? No. ak1 Patient's initial sepsis screen is negative. If YES to both, name of provider notified: Kang Oneal MD. Triage Assessment: 21:25 General: Appears distressed, Behavior is calm, cooperative. Pain: Denies pain. EENT: No ak1 signs and/or symptoms were reported regarding the EENT system. Neuro: No deficits noted. Cardiovascular: No deficits noted. Respiratory: Reports shortness of breath at rest on exertion since 183 labored breathing since 183 Airway is patent Breath sounds are coarse Breath sounds with crackles Onset: The symptoms/episode began/occurred today, the patient has moderate shortness of breath. GI: No signs and/or symptoms were reported involving the gastrointestinal system. : No signs and/or symptoms were reported regarding the genitourinary system. Derm: No signs and/or symptoms reported regarding the dermatologic system. Musculoskeletal: No signs and/or symptoms reported regarding the musculoskeletal system. Historical: - Allergies: 21:25 Sulfa (Sulfonamide Antibiotics); ak1 - Home Meds: 21:25 omeprazole 20 mg Oral cpDR 1 cap once daily [Active]; nitroglycerin 0.4 mg/hr Topical ak1 pt24 1 patch once daily [Active]; Fish Oil Oral [Active]; glimepiride 1 mg Oral tab 1 tab once daily [Active]; lovastatin 40 mg Oral tab 1 tab nightly [Active]; Plavix 75 mg Oral tab 1 tab once daily [Active]; Ranexa 500 mg Oral Tb12 1 tab 2 times per day [Active]; carvedilol 12.5 mg oral tab [Active]; docusate sodium 100 mg Oral cap 1 cap once daily [Active]; - PMHx: 21:25 Atrial Fib; cardiomyopathy; CAD; CHF; COPD; Diabetes - NIDDM; Pneumonia; Myocardial ak1 infarction; Pacemaker; Hypertension; Hyperlipidemia; - PSHx: 21:25 CABG; ak1 - Immunization history:: Adult Immunizations unknown. - Social history:: Smoking status: unknown. - Ebola Screening: : No symptoms or risks identified at this time. - Family history:: not pertinent. - Hospitalizations: : No recent hospitalization is reported. Screenin:03 Abuse screen: Denies threats or abuse. Denies injuries from another. Nutritional ak1 screening: No deficits noted. Tuberculosis screening: No symptoms or risk factors identified. Fall Risk Ambulatory Aid- Crutches/Cane/Walker (15 pts). Assessment: 21:26 Cardiovascular: Rhythm is regular. Respiratory: Respiratory effort is labored. ak1 21:27 Reassessment: RT placed pt on bipap, breathing regular, oxygen saturation 98% pt with ak1 cough. pt family at bedside. 22:01 Reassessment: lab at bedside for blood work. pt remains on bipap with increased ak1 comfort. family at bedside. 22:20 Reassessment: lab unable to obtain 2 blood cultures. lab was only able to obtain 1 ak1 culture. 23:56 Reassessment: Patient appears in no apparent distress at this time. Patient and/or ak1 family updated on plan of care and expected duration. Pain level reassessed. Patient is alert, oriented x 3, equal unlabored respirations, skin warm/dry/pink. pt resting comfortably with bipap. pt and family informed of pt need for admit. will continue to monitor. Patient states symptoms have improved. Vital Signs: 21:14 BP 155 / 80; Pulse 91; Resp 26; Temp 98.6(O); Pulse Ox 79% on R/A; Weight 83.91 kg (R); ak1 Height 5 ft. 10 in. (177.80 cm) (R); Pain 0/10; 22:04 BP 132 / 67; Pulse 86; Resp 24; Temp 98.6(A); Pulse Ox 99% on BiPAP; ak1 23:06 Pulse 71; Resp 24; Pulse Ox 99% on BiPAP; ak1 23:57 BP 110 / 58; Pulse 74; Resp 19; Pulse Ox 100% on BiPAP; ak1 02 00:30 BP 121 / 63; Pulse 72; Resp 23; Temp 98.4(A); Pulse Ox 100% on BiPAP; ak1 10/15 21:14 Body Mass Index 26.54 (83.91 kg, 177.80 cm) ak1 ED Course: 10/15 21:14 Patient arrived in ED. ak1 21:14 Arm band placed on Patient placed in an exam room, on a stretcher, on oxygen, on ak1 rn cardiac, on pulse oximetry. 21:17 Triage completed. ak1 21:30 Kang Oneal MD is Attending Physician. wa 21:33 Malissa Mcdermott, REUBEN is Primary Nurse. ak1 21:58 Chest Single View XRAY In Process Unspecified. EDMS 22:00 BIPAP Sent. ak1 22:03 Patient has correct armband on for positive identification. Bed in low position. Call ak1 light in reach. Side rails up X2. Adult w/ patient. vat washer on. Pulse ox on. NIBP on. 22:10 Inserted saline lock: 20 gauge in right antecubital area, using aseptic technique. oe 22:54 Notified ED physician of a critical lab result(s). Lactate 3.0. lp1 23:10 Lab(s) recollected, by me, sent to lab. Second set of blood cultures drawn by me. bb Inserted saline lock: 18 gauge in left antecubital area, using aseptic technique. Blood collected. 23:16 Deanna Willis MD is Hospitalizing Provider. wa 23:58 Patient admitted, IV remains in place. ak1 23:58 No provider procedures requiring assistance completed. ak1 Administered Medications: 23:20 Drug: Aspirin Chewable Tablet 324 mg Route: PO; ak1 23:27 Follow up: Response: No adverse reaction; No adverse reaction. pt could not chew due to ak1 not having his teeth in, pt swallowed pills. 23:43 Drug: Lasix 40 mg Route: IVP; Site: left antecubital; ak1 23:56 Follow up: Response: No adverse reaction; pt with urinal at bedside. ak1 Intake: Outcome: 23:16 Decision to Hospitalize by Provider. ирина 10/16 00:32 Admitted to Med/surg accompanied by tech, via stretcher, room 403, with oxygen, with ak1 chart, Report called to [facility] nurse for 403 Condition: stable Instructed on the need for admit. 00:43 Patient left the ED. ak1 Signatures: Dispatcher [employer] EDMS Annamaria Avalos RN RN bb Gin Dean RN RN cony1 Malissa Mcdermott RN RN ak1 Dennis Sousa William, MD MD wa
[2018-10-15 23:18] LABS: Anisocytosis 1+; Blood Morphology Comment NOTED (NOT SEEN); Hypochromasia 1+; Platelet Estimate INCR; Poikilocytosis 1+; Target Cells FEW
[2018-10-15 23:19] LABS: Burr Cells 1+; Elliptocytes 1+
[2018-10-15] MEDS ORDERED: ASPIRIN 81 MG CHEWABLE TABLET ONE (23:28)
[2018-10-15 23:37] LABS: Protime INR 1.27
[2018-10-15] MEDS ORDERED: FUROSEMIDE 40 MG/4 ML VIAL ONE (23:42)
[2018-10-16] MEDS ORDERED: ACETAMINOPHEN 500 MG TAB PO PRN (00:16)
[2018-10-16] MEDS: FUROSEMIDE 20 MG/ 2ML VIAL IV SCH ×2 (08:50→16:04)
[2018-10-16] MEDS ORDERED: NITROGLYCERIN 0.4 MG/HR (10 MG) PATCH TD PRN (08:56)
--- NOTE | 2018-10-16 09:05 | RAD REPORT ---
EXAM DESCRIPTION: Neeraj Single View10/15/2018 9:57 pm CLINICAL HISTORY: Hypertension COMPARISON: July 2018 FINDINGS: Mild bilateral interstitial opacities are seen. The heart is mildly enlarged. Pacemaker le ads are in place. Postsurgical changes involve the chest IMPRESSION: Mild CHF
[2018-10-16] MEDS: CARVEDILOL 6.25 MG TAB PO SCH ×2 (10:22→22:15)
[2018-10-16] MEDS: DOCUSATE NA 100 MG CAP PO SCH (10:23)
[2018-10-16] MEDS: CLOPIDOGREL 75 MG TABLET PO SCH (10:23)
[2018-10-16] MEDS: GLIMEPIRIDE 2 MG TABLET PO SCH (10:23)
--- NOTE | 2018-10-16 12:41 | CON ---
Chief Complaint: Dyspnea. History Of Present Illness: Mr. Hare is 83. He has a history of bypass surgery remotely. He has had coronary stents before that. He has atrial fibrillation and about a year ago underwent a Watchman device insertion, allowing him to get off the Xarelto. He now takes Plavix. He also has a defibrillator. He came to the hospital because very suddenly he became short of breath. He noticed it when he first laid down. When he got to the hospital , he was in pulmonary edema. He has received Lasix therapy and he breathed much better today. He is known to have congestive heart failure. We do not have an accurate up to date list of present medications. Medicine list is old. He reports that he takes Xarelto and that is not true. The list obtained in the emergency room included omeprazole, nitroglycerin patch, glimepiride, lovastatin 40, Plavix 75, Ranexa 500 twice a day, Coreg 12.5 b.i.d., and docusate. Physical Examination: General: He is alert, oriented, pleasant, not in distress. Lungs: Reveal crackles up to the tip of the scapula. Heart: Reveals a laterally displaced apical impulse, 1/6 holosystolic murmur. Extremities: Trace edema. Distal pulses are normal. Impression: The patient went into pulmonary edema. He probably ate saltier foods than he should have. He should probably be on a chronic diuretic therapy. Diuretics were not one of the things on the list. He is presently receiving Lasix 20 mg IV twice a day. I think we should continue that. Thank you very much for your kind referral of Mr. Hare. I will follow him with you. His troponins are elevated. I think it is from a cardiomyopathy. Does not really seem to be an acute coronary syndrome. If we get him diuresed and he is feeling well, he plans to see his usual optical worker on Thursday of this week, and we will let that optical worker decide if he needs another cardiac cath or stress test. ZOHRA Voice ID: [id number] Report ID: [id number]
[2018-10-16] MEDS ORDERED: ATORVASTATIN 20 MG TAB PO SCH (21:00)
[2018-10-16] MEDS: CAPTOPRIL 25 MG TABLET PO SCH (21:00)
[2018-10-16 21:50] VITALS: O2SAT 98
[2018-10-16 22:46] LABS: Urine Appearance CLEAR; Urine Bilirubin NEGATIVE (NEG); Urine Blood NEGATIVE (NEG); Urine Color YELLOW; Urine Glucose NEGATIVE (NEG); Urine Protein NEGATIVE (NEG); Urine Urobilinogen 0.2 mg/dL (0.2-1.0)
[2018-10-16 23:11] LABS: Urine Microscopic Reflex ORDER UMIC
--- NOTE | 2018-10-16 23:39 | HP ---
Date of Admission: 10/16/2018 History Of Present Illness: An 83-year-old male with history of congestive heart failure systolic an d chronic disease, started feeling more short of breath than usual 2 days ago that worsened to where he had to come the emergency room. The patient was found to be in congestive heart failure exacerbat ion and was admitted for that. The patient did not have a chest pain and he had no fever, no chills, no cough. No nausea. No vomiting. He voiced no other complaints. Review of Systems: Respiratory: As above. Cardiovascular: No complaints. Genitourinary: No complaints. Skeletomuscular: No complaints. Neurological: No complaints. Gastrointestinal: No complaint. Past Medical History: 1.Coronary artery disease, status post myocardial infarction in the past. 2.Systolic congestive heart failure. 3.Noninsulin diabetes mellitus. 4.COPD. 5.Atrial fibrillation. 6.Hypertension. 7.Hyperlipidemia. 8.Patient has had pacemaker placement in the past. Social History: No smoking, alcohol, or drug abuse history. Family History: Noncontributing. Medications: Include: 1.Xarelto 15 mg p.o. daily. 2.Captopril 50 mg p.o. b.i.d. 3.Carvedilol 6.25 mg p.o. b.i.d. 4.Glimepiride 2 mg p.o. daily. 5.Lovastatin 40 mg p.o. daily. 6.Omeprazole 20 mg p.o. daily. 7.Ranexa 500 mg p.o. b.i.d. 8.Nitroglycerin patch. 9.Fish oil. Allergies: SULFA. Physical Examination: Vital Signs: Blood pressure 105/60, pulse 70, temperature 97.9. Heart: Regular rate and rhythm. Chest: Mild bilateral crackles. Abdomen: Soft, nontender. No hepatosplenomegaly. Bowel sounds are normoactive. Extremities: No edema. No cyanosis. Peripheral pulses are felt. Neurological: Alert, oriented, nonfocal. Grossly intact. Head and Neck: Examination also patient did not show JVD. Vital Signs: Pulse oximetry on room air is 96. Laboratory Data: The patient's chest x-ray mild CHF. White cell count 20, hemoglobin 10.7, hematocr it 35.5, and platelets 411. Chemistry; lactic acid 3.01 down to 1.7. BNP 4378. Troponin 0.75, drop ped down to 0.63. Assessment And Plan: 1.Gradual increase in shortness of breath and patient with his chronic systolic congestive heart tian lure and chronic disease being admitted. We will put him on IV Lasix with rest and salt restriction. We have asked Cardiology to see the patient also for that. 2.Type 2 diabetes mellitus. We will put the patient on regular insulin sliding scale. 3.We will continue the rest of the patient's home medications. 4.Leukocytosis. Clinically, no indication of infection at this time. We will repeat CBC. His urin e analysis is pending. Also, look orders for details. MFS/MODL Voice ID: [id number]
[2018-10-16 23:41] LABS: Urine Bacteria <20 /HPF (NONE SEEN); Urine Culture Reflex Order REFLEXED; Urine RBC NONE SEEN /HPF (NONE SEEN)
[2018-10-17] MEDS ORDERED: GLUCAGON 1 MG/VIAL IM PRN (00:21)
[2018-10-17] MEDS ORDERED: D50W 25 GM/50 ML SYRINGE IV PRN (00:21)
[2018-10-17 05:19] VITALS: BMI 25.1
[2018-10-17 06:17] LABS: Absolute Lymphocytes (CBC) 1.5 K/uL (0.7-4.9); Absolute Neutrophil 8.1 K/uL (1.8-8.0); Basophils % 0.5 % (0-1.3); Eosinophils % 3.3 % (0-4.4); Hematocrit 28.6 % (39.6-49.0); Lymphocytes % 13.3 % (15.3-44.8); MPV 7.2 fL (7.6-11.3); Monocytes % 9.5 % (3.3-12.3); RBC Red Blood Cell Count 3.55 M/uL (4.33-5.43)
[2018-10-17] MEDS ORDERED: PANTOPRAZOLE 40MG TABLET PO SCH (06:30)
[2018-10-17 06:53] LABS: Potassium 3.8 mmol/L (3.5-5.1)
[2018-10-17 07:20] LABS: Platelet Estimate ADEQ; Urine White Blood Cell Casts OK
[2018-10-17 07:21] LABS: Anisocytosis 1+; Blood Morphology Comment NOTED (NOT SEEN)
[2018-10-17] MEDS: INSULIN -REGULAR HUMAN 50 UNIT/0.5 ML ML SQ SCH ×2 (07:30→12:51)
[2018-10-17] MEDS: CAPTOPRIL 25 MG TABLET PO SCH (09:00)
--- NOTE | 2018-10-17 10:56 | EKG ---
Test Date: 2018-10-15 Test Time: 21:34:09 Air Twist Operator: ADONIS MEASUREMENT RESULTS: Intervals: Rate: 89 [place]: QRSD: 124 QT: 414 QTc: 503 [place]: P: [place]: QRS: -36 T: 145 INTERPRETIVE STATEMENTS: Atrial fibrillation with occasional Ventricular paced complexes Abnormal ECG Compared to ECG 07/18/2018 18:32:43 No significant changes Electronically Signed On 10-17-18 10:56:00 INTERNAL WHOLESALER by Arjun Brown
[2018-10-17] MEDS: FUROSEMIDE 20 MG/ 2ML VIAL IV SCH (11:08)
[2018-10-17] MEDS: CLOPIDOGREL 75 MG TABLET PO SCH (11:09)
[2018-10-17] MEDS: CARVEDILOL 6.25 MG TAB PO SCH (11:09)
[2018-10-17] MEDS: DOCUSATE NA 100 MG CAP PO SCH (11:09)
[2018-10-17] MEDS: GLIMEPIRIDE 2 MG TABLET PO SCH (11:10)
[2018-10-17 12:36] VITALS: BP 105/56; TEMP 98.3
--- NOTE | 2018-10-17 15:58 | PN ---
Mr. Hare seems to be feeling very well today. I think he could be discharged and follow up with [facility] r[facility]u. He already has an appointment 4 days from now. His atrial fibrillation, CAD and pac emaker seem to be stable. Troponins are slightly elevated, probably not indicating acute coronary sy ndrome, but heart failure which is basically resolved with diuresis. YUAN/PRISCILLA Voice ID: [id number] Report ID: [id number]
== END 2018-10-17 15:04 | disposition home or self-care (01) | DRG 293 ==
LOC: ER 21:04 → ERHOLD 10-16 00:15 → 4TH 10-16 00:38
PROVIDERS: ADMIT Internal Medicine; ATTEND Internal Medicine
DX: I11.0 Hypertensive heart disease with heart failure (principal); I50.23 Acute on chronic systolic (congestive) heart failure; I25.10 Atherosclerotic heart disease of native coronary artery without angina pectoris; Z95.1 Presence of aortocoronary bypass graft; I25.2 Old myocardial infarction; E11.9 Type 2 diabetes mellitus without complications; Z79.84 Long term (current) use of oral hypoglycemic drugs; J44.9 Chronic obstructive pulmonary disease, unspecified; I48.91 Unspecified atrial fibrillation; E78.5 Hyperlipidemia, unspecified; D72.829 Elevated white blood cell count, unspecified; Z95.5 Presence of coronary angioplasty implant and graft; Z95.810 Presence of automatic (implantable) cardiac defibrillator; Z79.02 Long term (current) use of antithrombotics/antiplatelets; I42.9 Cardiomyopathy, unspecified
CPT/HCPCS: 36415; 71045; 80048; 80076; 81003; 81015; 82550; 82553; 82962; 83605; 83690; 83880; 84145; 84484; 85025; 85610; 85730; 87040; 87070; 87077; 87086; 87088; 87186; 87205; 87804; 93005; 94660; 96374; 99285; J1940

== ENCOUNTER 2019-02-28 05:34 | Emergency (ER) | payer OTHER, MEDICARE ==
--- OUTSIDE RECORDS SUMMARY | 2019-02-28 05:38 | XMS REPORT | CCD ---
:1935 Author Organization [facility] Care Team Providers Name [...] dual chamber pacemaker pulse generator 07/14/2012 Active PR - Myocardial infarction Active Replacement of pacemaker [...]
--- OUTSIDE RECORDS SUMMARY | 2019-02-28 05:38 | XMS REPORT | Summary of Care ---
:1935 Author Organization [facility] Address [address] [place] [id number]- Encounter HQ Juan J(FIN) [phone] Date(s): 05/24/18 - 05/24/[address] [address]- Encounter Diagnosis Chronic atrial fibrillation (Final) - 08/07/18 Type 2 diabetes mellitus without complications (Final) - Essential (primary) hypertension (Final) - Atherosclerotic heart disease of 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) - intermediate frame tender (current) use of anticoagulants (Final) - intermediate frame tender (current) use of oral hypoglycemic drugs (Final) - Other jail (current) drug therapy (Final) - Discharge Disposition: Home or Self Care Attending Physician: Abner Greenberg MD Referring Physician: Abner Greenberg MD Vital Signs Most recent to oldest [Reference Range]: 1 Height 175.26 cm (05/21/18 2:15 PM) Weight 83.636 kg (05/21/18 2:15 PM) Body Mass Index 27.23 m2 (05/21/18 2:15 PM) Problem List Condition Effective Dates Status Health Status Informant Afib(Confirmed) Active Atrial fibrillation(Confirmed) Active CAD - Coronary artery Active disease(Confirmed) Cardiomyopathy(Confirmed) Active CHF (congestive heart Active failure)(Confirmed) Diabetes(Confirmed) Active DM - Diabetes mellitus(Confirmed) Active Heartburn(Confirmed) Resolved HTN - Hypertension(Confirmed) Active Hyperlipidemia(Confirmed) Active HLD (hyperlipidemia)(Confirmed) Resolved HTN (hypertension)(Confirmed) Active 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(Confirmed) MD - Myocardial Active infarction(Confirmed) MD (myocardial Active infarction)(Confirmed) Replacement of pacemaker pulse 07/14/12 Active generator(Confirmed) VT - Ventricular Active tachycardia(Confirmed) Allergies, Adverse Reactions, Alerts Substance Reaction Severity Status sulfa drugs N/V Active Allergy to sulfa drugs NKFA Active Medications glimepiride 1 mg oral tablet 1 mg=1 tab, PO, Breakfast Start Date: 05/21/18 Status: OrderedXarelto 15 mg oral tablet 15 mg=1 tab, PO, Daily, 3 Refill(s) Start Date: 05/21/18 Status: Ordered Results ELECTROLYTES Most recent to oldest [Reference Range]: 1 Sodium Lvl [135-145 mEq/L] 139 mEq/L (05/24/18 10:00 AM) Potassium Lvl [3.5-5.1 mEq/L] 4.4 mEq/L (05/24/18 10:00 AM) Chloride Lvl [95-109 mEq/L] 106 mEq/L (05/24/18 10:00 AM) CO2 [24-32 mEq/L] 22 mEq/L *LOW* (05/24/18 10:00 AM) AGAP [10.0-20.0 mEq/L] 15.4 mEq/L (05/24/18 10:00 AM) CHEM PANEL Most recent to oldest [Reference Range]: 1 Creatinine Lvl [0.50-1.40 mg/dL] 1.70 mg/dL *HI* (05/24/18 10:00 AM) eGFR 36 mL/min/1.73m2 1 *NA* (05/24/18 10:00 AM) BUN [7-22 mg/dL] 22 mg/dL (05/24/18 10:00 AM) B/C Ratio [6-25] 13 (05/24/18 10:00 AM) Glucose Lvl [70-99 mg/dL] 97 mg/dL (05/24/18 10:00 AM) Total Protein [6.4-8.4 g/dL] 7.8 g/dL (05/24/18 10:00 AM) Albumin Lvl [3.5-5.0 g/dL] 3.5 g/dL (05/24/18 10:00 AM) Globulin [2.7-4.2 g/dL] 4.3 g/dL *HI* (05/24/18 10:00 AM) A/G Ratio [0.7-1.6] 0.8 (05/24/18 10:00 AM) Calcium Lvl [8.5-10.5 mg/dL] 9.1 mg/dL (05/24/18 10:00 AM) ALT [0-65 unit/L] 14 unit/L (05/24/18 10:00 AM) AST [0-37 unit/L] 13 unit/L (05/24/18 10:00 AM) Alk Phos [39-136 unit/L] 75 unit/L (05/24/18 10:00 AM) Bili Total [0.2-1.3 mg/dL] 0.7 mg/dL (05/24/18 10:00 AM) 1Result Comment: The eGFR is calculated using the CKD-EPI formula. In most young , healthy individualsthe eGFR will be >90 mL/min/1.73m2. The eGFR declines with age. An eGFR of 60-89 may be normal insome populations, particularly the elderly, for whom the [...] eGFR should be multiplied by the estimated BMI.HEMATOLOGY Most recent to oldest [Reference Range]: 1 WBC [3.7-10.4 K/CMM] 5.7 K/CMM (05/24/18 10:00 AM) RBC [4.70-6.10 M/CMM] 4.37 M/CMM *LOW* (05/24/18 10:00 AM) Hgb [14.0-18.0 g/dL] 11.9 g/dL *LOW* (05/24/18 10:00 AM) Hct [42.0-54.0 %] 35.9 % *LOW* (05/24/18 10:00 AM) MCV [80.0-94.0 fL] 82.3 fL (9/17/18 10:00 AM) MCH [27.0-31.0 pg] 27.3 pg (05/24/18 10:00 AM) MCHC [32.0-36.0 g/dL] 33.2 g/dL (05/24/18 10:00 AM) RDW [11.5-14.5 %] 19.8 % *HI* (05/24/18 10:00 AM) MPV [7.4-10.4 fL] 7.4 fL (05/24/18 10:00 AM) Platelet [133-450 K/CMM] 236 K/CMM (05/24/18 10:00 AM) Segs [45.0-75.0 %] 59.5 % (05/24/18 10:00 AM) Lymphocytes [20.0-40.0 %] 27.0 % (05/24/18 10:00 AM) Monocytes [2.0-12.0 %] 10.1 % (05/24/18 10:00 AM) Eosinophils [0.0-4.0 %] 3.1 % (05/24/18 10:00 AM) Basophils [0.0-1.0 %] 0.3 % (05/24/18 10:00 AM) Neutrophils # [1.5-8.1 K/CMM] 3.4 K/CMM (05/24/18 10:00 AM) Lymphocytes # [1.0-5.5 K/CMM] 1.5 K/CMM (05/24/18 10:00 AM) Monocytes # [0.0-0.8 K/CMM] 0.6 K/CMM (05/24/18 10:00 AM) Eosinophils # [0.0-0.5 K/CMM] 0.2 K/CMM (05/24/18 10:00 AM) Basophils # [0.0-0.2 K/CMM] 0.0 K/CMM (05/24/18 10:00 AM) PT [12.0-14.7 seconds] 18.7 seconds *HI* (05/24/18 10:00 AM) INR [0.85-1.17] 1.55 *HI* (05/24/18 10:00 AM) PTT [22.9-35.8 seconds] 31.8 seconds (05/24/18 10:00 AM) Immunizations Given and Recorded Vaccine Date Status Refusal Reason pneumococcal 13-valent vaccine 09/24/16 Given Procedures Procedure Date Related Diagnosis Body Site Status ANNIE procedure1 07/12/18 Completed ANNIE procedure2 05/24/18 Completed Appendectomy Completed CABG - Coronary artery bypass graft Completed Cataract surgery Completed Implantation of automatic Completed cardioverter/defibrillator, total system (AICD) Rotator cuff repair Completed 1post [id number] CLOTS Social History Social History Type Response Substance Abuse Use: None. Exercise Exercise frequency: 3-4 times/week. Exercise type: Walking. Employment/School Status: Retired. Alcohol Past Smoking Status Former smoker; Exposure to Tobacco Smoke None; Cigarette Smoking Last 365 Days No; Reg Smoking Cessation Counseling Yes; Other Tobacco Frequency quit 1975; entered on: 07/12/18 Assessment and Plan No data available for this section
--- OUTSIDE RECORDS SUMMARY | 2019-02-28 05:38 | XMS REPORT | Summary of Care ---
:1935 Author Organization [facility] Address [address] [place] [id number]- Encounter HQ Juan J(FIN) [phone] Date(s): 05/27/18 - 05/28/[address] [address]- Encounter Diagnosis Persistent atrial fibrillation (Final) - Chronic atrial fibrillation (Final) - 08/07/18 Atherosclerotic heart disease of [place] coronary artery without angina pectoris (Final) - Type 2 diabetes mellitus without complications (Final) - Essential (primary) hypertension (Final) - Hyperlipidemia, unspecified (Final) - Ventricular tachycardia (Final) - Unspecified atrioventricular block (Final) - Encounter for examination for normal comparison and control in clinical research program (Final) - prison (current) use of anticoagulants (Final) - Unsteadiness on feet (Final) - Presence of cardiac pacemaker (Final) - Old myocardial infarction (Final) - History of falling (Final) - Discharge Disposition: Home or Self Care Attending Physician: Roger Recio MD Admitting Physician: Roger Recio MD Referring Physician: Roger Recio MD Vital Signs Most recent to oldest 1 2 3 [Reference Range]: Height 175.26 cm 175.26 cm (05/27/18 10:00 AM) (05/25/18 3:00 PM) Temperature Oral [96.4-99.1 98.0 DegF DegF] (05/27/18 10:00 AM) Blood Pressure [90-140/60-90 99/63 mmHg 104/58 mmHg 105/63 mmHg mmHg] (05/28/18 12:00 PM) (05/28/18 8:00 AM) (05/28/18 4:00 AM) Respiratory Rate [14-20 18 BRMIN 16 BRMIN 20 BRMIN BRMIN] (05/28/18 12:00 PM) (05/28/18 8:00 AM) (05/28/18 4:00 AM) Peripheral Pulse Rate [60-100 77 bpm 70 bpm 73 bpm bpm] (05/28/18 12:00 PM) (05/28/18 8:00 AM) (05/28/18 4:00 AM) Weight 87.909 kg 82.727 kg 83.636 kg (05/28/18 4:00 AM) (05/27/18 10:00 AM) (05/25/18 3:00 PM) Body Mass Index 26.93 m2 27.23 m2 (05/27/18 10:00 AM) (05/25/18 3:00 PM) Problem List Condition Effective Dates Status Health Status Informant Afib(Confirmed) Active Atrial fibrillation(Confirmed) Active CAD - Coronary artery Active disease(Confirmed) Cardiomyopathy(Confirmed) Active CHF (congestive heart Active failure)(Confirmed) Diabetes(Confirmed) Active DM - Diabetes mellitus(Confirmed) Active Heartburn(Confirmed) Resolved HTN - Hypertension(Confirmed) Active Hyperlipidemia(Confirmed) Active HLD (hyperlipidemia)(Confirmed) Resolved HTN (hypertension)(Confirmed) Active 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(Confirmed) [place] - Myocardial Active infarction(Confirmed) [place] (myocardial Active infarction)(Confirmed) Replacement of pacemaker pulse 07/14/12 Active generator(Confirmed) [place] - Ventricular Active tachycardia(Confirmed) Allergies, Adverse Reactions, Alerts Substance Reaction Severity Status sulfa drugs N/V Active Allergy to sulfa drugs NKFA Active Medications acetaminophen-codeine #3 1 tab, Route: PO, Drug Form: TAB, Dosing Weight 82.727, kg, Q6H, PRN Pain Score 4-6, Start date: 05/27/18 15:12:00 CDT, Duration: 30 day, Stop date: 06/26/18 15 :11:00 CDT Notes: Do not exceed 4gm/day of acetaminophen. (Same as: Tylenol with Codeine # 3) Start Date: 05/27/18 Stop Date: 05/28/18 Status: Discontinuedacetaminophen-codeine #3 2 tab, Route: PO, Drug Form: TAB, Dosing Weight 82.727, kg, Q6H, PRN Pain Score 7-10, Start date: 05/27/18 15:12:00 CDT, Duration: 30 day, Stop date: 06/26/18 15:11:00 CDT Notes: Do not exceed 4gm/day of acetaminophen. (Same as: Tylenol with Codeine # 3) Start Date: 05/27/18 Stop Date: 05/28/18 Status: DiscontinuedAmidate (ANES) Route: IV, Drug form: INJ, ONCE, Stop date: 05/27/18 14:21:00 CDT Start Date: 05/27/18 Stop Date: 05/27/18 Status: CompletedANES acetaminophen 1,000 mg, 2 tab, Route: PO, Drug form: TAB, ONCE, Dosing Weight 82.727, kg, PRN Pain Score 1-3, Start date: 05/27/18 15:13:00 CDT Notes: Max acetaminophen 4000 mg/day (4 gm/day). (Same as: Tylenol Extra Strength) Start Date: 05/27/18 Stop Date: 05/28/18 Status: DiscontinuedANES albuterol 0.083% inhalation solution 2.49 mg, 3 mL, Route: NEB, Drug form: SOLN, Q20Min, Dosing Weight 82.727, kg, PRN Wheezing, Priority: STAT, Start date: 05/27/18 15:13:00 CDT, Duration: 30 day, Stop date: 06/26/18 15:12:00 CDT Notes: SEE RT DOCUMENTATION (Same as: Proventil) Start Date: 05/27/18 Stop Date: 05/28/18 Status: DiscontinuedANES atropine 0.2 mg, 2 mL, Route: IVP, Drug form: INJ, Q5Min, Dosing Weight 82.727, kg, PRN Other -See Comment, as needed; for symptomatic pulse rate < 80% of mean 50 BPM, Start date: 05/27/18 15:13:00 CDT, Duration: 30 day, Stop date: 06/26/18 15 :12:00 CDT Start Date: 05/27/18 Stop Date: 05/28/18 Status: DiscontinuedANES diphenhydrAMINE 12.5 mg, 0.25 mL, Route: IVP, Drug form: INJ, Q6H, Dosing Weight 82.727, kg, PRN Itching, Start date: 05/27/18 15:13:00 CDT, Duration: 30 day, Stop date: 15:12:00 CDT Notes: (Same as: Benadryl) Start Date: 05/27/18 Stop Date: 05/28/18 Status: DiscontinuedANES ePHEDrine 5 mg, 1 mL, Route: IVP, Drug form: INJ, Q5Min, Dosing Weight 82.727, kg, PRN Low Blood Pressure, Start date: 05/27/18 15:13:00 CDT, Duration: 30 day, Stop date: 06/26/18 15:12:00 CDT Notes: final concentration 5 mg/mL Start Date: 05/27/18 Stop Date: 05/28/18 Status: DiscontinuedANES flumazenil 0.2 mg, 2 mL, Route: IVP, Drug form: INJ, PRN, Dosing Weight 82.727, kg, PRN Benzodiazepine Reversal, Initial dose, Start date: 05/27/18 15:13:00 CDT, Duration: 30 day, Stop date: 06/26/18 15:12:00 CDT Notes: (Same as: Romazicon) Start Date: 05/27/18 Stop Date: 05/28/18 Status: DiscontinuedANES glycopyrrolate 0.2 mg, 1 mL, Route: IVP, Drug form: INJ, Q5Min, Dosing Weight 82.727, kg, PRN Bradycardia, Start date: 05/27/18 15:13:00 CDT, Duration: 3 doses or times, Stop date: Limited # of times Notes: (Same as: Patricia) Start Date: 05/27/18 Stop Date: 05/28/18 Status: DiscontinuedANES naloxone 0.4 mg, 1 mL, Route: IVP, Drug form: INJ, Q2MIN, Dosing Weight 82.727, kg, PRN Narcotic Reversal, Start date: 05/27/18 15:13:00 CDT, Duration: 8 doses or times , Stop date: Limited # of times Notes: Same as Narcan Start Date: 05/27/18 Stop Date: 05/28/18 Status: DiscontinuedANES ondansetron 4 mg, 2 mL, Route: IVP, Drug form: INJ, ONCE, Dosing Weight 82.727, kg, PRN Nausea & Vomiting, Start date: 05/27/18 15:13:00 CDT Notes: (Same as: Olegario) MEDICATION WASTE Product Size: 4 mgProduct Wasted: ___ mg Start Date: 05/27/18 Stop Date: 05/28/18 Status: DiscontinuedANES oxyCODONE 2.5 mg, 2.5 mL, Route: PO, Drug form: LIQ, Q4H, Dosing Weight 82.727, kg, PRN Pain Score 4-6, Start date: 05/27/18 15:13:00 CDT, Duration: 30 day, Stop date: 06/26/18 15:12:00 CDT Notes: (Same as: 'Roxicodone) Start Date: 05/27/18 Stop Date: 05/28/18 Status: DiscontinuedANES racepinephrine 11.25 mg, 0.5 mL, Route: NEB, Drug Form: SOLN, Dosing Weight 82.727, kg, PRN, PRN Shortness of breath, Start date: 05/27/18 15:13:00 CDT, Duration: 30 day, Stop date: 06/26/18 15:12:00 CDT Notes: (racepinephrine *2.25% inh 0.5ml SOLN) (Same as:S2) Start Date: 05/27/18 Stop Date: 05/28/18 Status: Discontinuedcaptopril 25 mg, 1 tab, Route: PO, Drug form: TAB, BID, Dosing Weight 87.909, kg, Start date: 05/28/18 9:00:00CDT, Duration: 30 day, Stop date: 06/26/18 17:00:00 CDT Notes: Give on empty stomach. 1 hour before meal. (Same As: Capoten) Start Date: 05/28/18 Stop Date: 05/28/18 Status: Discontinuedcarvedilol 6.25 mg, 1 tab, Route: PO, Drug form: TAB, BID, Dosing Weight 87.909, kg, Start date: 05/28/18 9:00:00 CDT, Duration: 30 day, Stop date: 06/26/18 17:00:00 CDT Notes: Give with food. (Same As: Coreg) Start Date: 05/28/18 Stop Date: 05/28/18 Status: DiscontinuedceFAZolin (ANES) Route: IV, Drug form: INJ, ONCE, Stop date: 05/27/18 14:01:00 CDT Start Date: 05/27/18 Stop Date: 05/27/18 Status: CompletedePHEDrine (ANES) Route: IV, Drug form: INJ, ONCE, Stop date: 05/27/18 14:06:00 CDT Start Date: 05/27/18 Stop Date: 05/27/18 Status: CompletedfentaNYL (ANES) Route: IV, Drug form: INJ, ONCE, Stop date: 05/27/18 14:16:00 CDT Start Date: 05/27/18 Stop Date: 05/27/18 Status: CompletedFish Oil 1,200 mg, Route: PO, Drug form: CAP, Daily, Dosing Weight 87.909, kg, Start date : 05/28/18 9:00:00 CDT, Duration: 30 day, Stop date: 06/26/18 9:00:00 CDT Start Date: 05/28/18 Stop Date: 05/28/18 Status: Discontinuedglimepiride 1 mg, Route: PO, Drug form: TAB, Breakfast, Dosing Weight 87.909, kg, Start date : 05/29/18 8:00:00 CDT, Duration: 30 day, Stop date: 06/27/18 8:00:00 CDT Start Date: 05/29/18 Stop Date: 05/28/18 Status: DiscontinuedGlucotrol 2.5 mg, 0.5 tab, Route: PO, Drug form: TAB, Before Breakfast, Start date: 7:30:00 CDT, Duration: 30 day, Stop date: 06/27/18 7:30:00 CDT Notes: (Same as: Glucotrol) 30 min before meals. Start Date: 05/29/18 Stop Date: 05/28/18 Status: Canceledglycopyrrolate (ANES) Route: IV, Drug form: INJ, ONCE, Stop date: 05/27/18 15:12:00 CDT Start Date: 05/27/18 Stop Date: 05/27/18 Status: CompletedLipitor 20 mg, 1 tab, Route: PO, Drug form: TAB, Daily, Start date: 05/28/18 9:00:00 CDT , Duration: 30 day, Stop date: 06/26/18 9:00:00 CDT Notes: (Same As: Lipitor) Start Date: 05/28/18 Stop Date: 05/28/18 Status: Discontinuedlovastatin 40 mg, Route: PO, Drug form: TAB, Bedtime, Dosing Weight 87.909, kg, Start date : 05/28/18 21:00:00 CDT, Duration: 30 day, Stop date: 06/26/18 21:00:00 CDT Start Date: 05/28/18 Stop Date: 05/28/18 Status: DiscontinuedMaxEPA 1 gm, 1 cap, Route: PO, Drug form: CAP, Daily, Start date: 05/28/18 9:00:00 CDT , Duration: 30 day, Stop date: 06/26/18 9:00:00 CDT Notes: (Same as: MaxEPA, [place] 3 fish oil )Non-Formulary Drug Start Date: 05/28/18 Stop Date: 05/28/18 Status: Discontinuedmorphine Sulfate 2 mg, 0.5 mL, Route: IVP, Drug form: SOLN, Q2H, Dosing Weight 82.727, kg, PRN Pain Score 4-6, Start date: 05/27/18 15:12:00 CDT, Duration: 30 day, Stop date: 06/26/18 15:11:00 CDT Notes: (Same as:MORPhine Sulfate) Start Date: 05/27/18 Stop Date: 05/28/18 Status: Discontinuedmorphine Sulfate 4 mg, 1 mL, Route: IVP, Drug form: SOLN, Q2H, Dosing Weight 82.727, kg, PRN Pain Score 7-10, Start date: 05/27/18 15:12:00 CDT, Duration: 30 day, Stop date : 06/26/18 15:11:00 CDT Notes: (Same as:MORPhine Sulfate) Start Date: 05/27/18 Stop Date: 05/28/18 Status: Discontinuedneostigmine (ANES) Route: IV, Drug form: INJ, ONCE, Stop date: 05/27/18 15:12:00 CDT Start Date: 05/27/18 Stop Date: 05/27/18 Status: Completednorepinephrine (ANES) Route: IV, Drug form: INJ, ONCE, Stop date: 05/27/18 14:55:00 CDT Start Date: 05/27/18 Stop Date: 05/27/18 Status: Completednorepinephrine (ANES) 32 microgram Route: IV, Drug form: INJ, Start date: 05/27/18 14:24:00 CDT, Stop date: 15:24:00 CDT Start Date: 05/27/18 Stop Date: 05/27/18 Status: Completedomeprazole 20 mg, Route: PO, Drug form: DRC, Daily, Dosing Weight 87.909, kg, Start date: 05/28/18 9:00:00 CDT,Duration: 30 day, Stop date: 06/26/18 9:00:00 CDT Start Date: 05/28/18 Stop Date: 05/28/18 Status: Discontinuedphenylephrine (ANES) Route: IV, Drug form: INJ, ONCE, Stop date: 05/27/18 14:21:00 CDT Start Date: 05/27/18 Stop Date: 05/27/18 Status: CompletedProtonix 40 mg, 1 tab, Route: PO, Drug form: ECTAB, Daily, Start date: 05/28/18 9:00:00 CDT, Duration: 30 day, Stop date: 06/26/18 9:00:00 CDT Notes: Tablet should not be chewed or crushed.(Same as: Protonix) Start Date: 05/28/18 Stop Date: 05/28/18 Status: DiscontinuedRanexa 500 mg, 1 tab, Route: PO, Drug form: TAB, BID, Dosing Weight 87.909, kg, Start date: 05/28/18 9:00:00 CDT, Duration: 30 day, Stop date: 06/26/18 17:00:00 CDT Notes: Same as Ranexa"Do Not Crush" Start Date: 05/28/18 Stop Date: 05/28/18 Status: Discontinuedrivaroxaban 15 mg, 1 tab, Route: PO, Drug form: TAB, Daily, Dosing Weight 82.727, kg, Start date: 05/28/18 3:00:00 CDT, Duration: 30 day, Stop date: 06/26/18 9:00:00 CDT Notes: (Same as: Xarelto)Administer with food Start Date: 05/28/18 Stop Date: 05/28/18 Status: Discontinuedrocuronium (ANES) Route: IV, Drug form: INJ, ONCE, Stop date: 05/27/18 14:21:00 CDT Start Date: 05/27/18 Stop Date: 05/27/18 Status: CompletedSaline Flush 0.9% 10 ml, Route: IVP, Drug Form: INJ, Dosing Weight 82.727, kg, PRN, PRN Line Flush , Start date: 05/27/18 15:12:00 CDT, Duration: 30 day, Stop date: 06/26/18 15:11 :00 CDT Notes: (Same as: BD Posiflush) Start Date: 05/27/18 Stop Date: 05/28/18 Status: DiscontinuedSaline Flush 0.9% 10 ml, Route: IVP, Drug Form: INJ, Dosing Weight 82.727, kg, Q12H, Start date: 05/27/18 21:00:00 CDT, Duration: 30 day, Stop date: 06/26/18 9:00:00 CDT Notes: (Same as: BD Posiflush) Start Date: 05/27/18 Stop Date: 05/28/18 Status: DiscontinuedSodium Chloride 0.9% IV (ANES) 1000 mL Route: IV, Total Volume: 1,000, Start date: 05/27/18 13:00:00 CDT, Stop date: 14:00:00 CDT Start Date: 05/27/18 Stop Date: 05/27/18 Status: CompletedTylenol 650 mg, 2 tab, Route: PO, Drug form: TAB, Q6H, Dosing Weight 82.727, kg, PRN Pain Score 1-3, Start date: 05/27/18 15:12:00 CDT, Duration: 30 day, Stop date: 06/26/18 15:11:00 CDT Notes: Do not exceed 4 gm/day. (Same as: Tylenol) Start Date: 05/27/18 Stop Date: 05/28/18 Status: Discontinued Results BLOOD BANK RESULTS Most recent to oldest [Reference Range]: 1 2 3 ABO/Rh O POS *Unknown* (05/27/18 9:17 AM) Antibody Scrn Negative (05/27/18 9:17 AM) RBC product Product available 1 (05/27/18 9:12 AM) 1Result Comment: 05/27/2018 10:58 [id number] Blood available, notified MILENA at 05/27/2018 10:58 by [email or web address] Most recent to oldest [Reference Range]: 1 2 3 Sodium Lvl [135-145 mEq/L] 139 mEq/L 137 mEq/L (05/28/18 5:34 AM) (05/27/18 9:17 AM) Potassium Lvl [3.5-5.1 mEq/L] 4.2 mEq/L 5.1 mEq/L (05/28/18 5:34 AM) (05/27/18 9:17 AM) Chloride Lvl [95-109 mEq/L] 106 mEq/L 105 mEq/L (05/28/18 5:34 AM) (05/27/18 9:17 AM) CO2 [24-32 mEq/L] 21 mEq/L 21 mEq/L *LOW* *LOW* (05/28/18 5:34 AM) (05/27/18 9:17 AM) AGAP [10.0-20.0 mEq/L] 16.2 mEq/L 16.1 mEq/L (05/28/18 5:34 AM) (05/27/18 9:17 AM) POC Sodium [135-145 mEq/L] 139 mEq/L (05/27/18 9:48 AM) POC Potassium [3.5-5.1 mEq/L] 6.6 mEq/L *CRIT* (05/27/18 9:48 AM) POC Chloride [95-109 mEq/L] 103 mEq/L (05/27/18 9:48 AM) POC Carbon Dioxide [24-32 mEq/dL] 25 mEq/dL (05/27/18 9:48 AM) POC AGAP [10.0-20.0 mEq/L] 19.0 mEq/L (05/27/18 9:48 AM) CHEM PANEL Most recent to oldest 1 2 3 [Reference Range]: Creatinine Lvl [0.50-1.40 1.30 mg/dL 1.50 mg/dL mg/dL] (05/28/18 5:34 AM) *HI* (05/27/18 9:17 AM) eGFR 50 mL/min/1.73m2 1 46 mL/min/1.73m2 2 42 mL/min/1.73m2 3 *NA* *NA* *NA* (05/28/18 5:34 AM) (05/27/18 9:48 AM) (05/27/18 9:17 AM) BUN [7-22 mg/dL] 21 mg/dL 27 mg/dL (05/28/18 5:34 AM) *HI* (05/27/18 9:17 AM) B/C Ratio [6-25] 18 (05/27/18 9:17 AM) Glucose Lvl [70-99 mg/dL] 114 mg/dL 112 mg/dL *HI* *HI* (05/28/18 5:34 AM) (05/27/18 9:17 AM) POC Creatinine [0.5-1.4 1.4 mg/dL mg/dL] (05/27/18 9:48 AM) POC BUN [7-22 mg/dL] 39 mg/dL *HI* (05/27/18 9:48 AM) POC Glucose [70-99 mg/dL] 121 mg/dL *HI* (05/27/18 9:48 AM) Total Protein [6.4-8.4 g/dL] 8.1 g/dL (05/27/18 9:17 AM) Albumin Lvl [3.5-5.0 g/dL] 3.4 g/dL *LOW* (05/27/18 9:17 AM) Globulin [2.7-4.2 g/dL] 4.7 g/dL *HI* (05/27/18 9:17 AM) A/G Ratio [0.7-1.6] 0.7 (05/27/18 9:17 AM) Calcium Lvl [8.5-10.5 mg/dL] 8.5 mg/dL 9.0 mg/dL (05/28/18 5:34 AM) (05/27/18 9:17 AM) POC Ion Ca [1.05-1.25 1.18 mMol/L mMol/L] (05/27/18 9:48 AM) Magnesium Lvl [1.8-2.4 2.0 mg/dL mg/dL] (05/28/18 5:34 AM) ALT [0-65 unit/L] 15 unit/L (05/27/18 9:17 AM) AST [0-37 unit/L] 22 unit/L (05/27/18 9:17 AM) Alk Phos [39-136 unit/L] 73 unit/L (05/27/18 9:17 AM) Bili Total [0.2-1.3 mg/dL] 0.7 mg/dL (05/27/18 9:17 AM) 1Result Comment: The eGFR is calculated [...] eGFR should be multiplied by the estimated BMI.2Result Comment: The eGFR is calculated using the CKD-EPI formula. In most young, healthy individualsthe eGFR will be >90 mL/min/1.73m2. [...] eGFR should be multiplied by the estimated BMI.3Result Comment: The eGFR is calculated using the CKD-EPI formula. In most young, healthy individualsthe eGFR will be >90 mL/min/1.73m2. [...] the estimated BMI.HEMATOLOGY Most recent to oldest 1 2 3 [Reference Range]: WBC [3.7-10.4 K/CMM] 7.1 K/CMM (05/27/18 9:17 AM) RBC [4.70-6.10 M/CMM] 4.25 M/CMM *LOW* (05/27/18 9:17 AM) Hgb [14.0-18.0 g/dL] 11.6 g/dL *LOW* (05/27/18 9:17 AM) Hct [42.0-54.0 %] 34.9 % *LOW* (05/27/18 9:17 AM) POC Hemoglobin [14.0-18.0 12.2 g/dL g/dL] *LOW* (05/27/18 9:48 AM) POC Hematocrit [42.0-54.0 %] 36.0 % *LOW* (05/27/18 9:48 AM) MCV [80.0-94.0 fL] 82.2 fL (05/27/18 9:17 AM) MCH [27.0-31.0 pg] 27.3 pg (05/27/18 9:17 AM) MCHC [32.0-36.0 g/dL] 33.3 g/dL (05/27/18 9:17 AM) RDW [11.5-14.5 %] 20.5 % *HI* (05/27/18 9:17 AM) MPV [7.4-10.4 fL] 7.8 fL (05/27/18 9:17 AM) Platelet [133-450 K/CMM] 261 K/CMM (05/27/18 9:17 AM) Segs [45.0-75.0 %] 63.3 % (05/27/18 9:17 AM) Lymphocytes [20.0-40.0 %] 23.0 % (05/27/18 9:17 AM) Monocytes [2.0-12.0 %] 9.2 % (05/27/18 9:17 AM) Eosinophils [0.0-4.0 %] 2.8 % (05/27/18 9:17 AM) Basophils [0.0-1.0 %] 1.7 % *HI* (05/27/18 9:17 AM) Neutrophils # [1.5-8.1 4.5 K/CMM K/CMM] (05/27/18 9:17 AM) Lymphocytes # [1.0-5.5 1.6 K/CMM K/CMM] (05/27/18 9:17 AM) Monocytes # [0.0-0.8 K/CMM] 0.7 K/CMM (05/27/18 9:17 AM) Eosinophils # [0.0-0.5 0.2 K/CMM K/CMM] (05/27/18 9:17 AM) Basophils # [0.0-0.2 K/CMM] 0.1 K/CMM (05/27/18 9:17 AM) PT [12.0-14.7 seconds] 15.9 seconds *HI* (05/27/18 9:17 AM) INR [0.85-1.17] 1.26 *HI* (05/27/18 9:17 AM) POC Activated Clotting Time 164 seconds 179 seconds 241 seconds *NA* *NA* *NA* (05/27/18 8:14 PM) (05/27/18 7:33 PM) (05/27/18 6:31 PM) PTT [22.9-35.8 seconds] 30.9 seconds (05/27/18 9:17 AM) Immunizations Given and Recorded Vaccine Date Status Refusal Reason pneumococcal 13-valent vaccine 09/24/16 Given Procedures Procedure Date Related Diagnosis Body Site Status ANNIE procedure1 07/12/18 Completed ANNIE procedure2 05/24/18 Completed Appendectomy Completed CABG - Coronary artery bypass graft Completed Cataract surgery Completed Implantation of automatic Completed cardioverter/defibrillator, total system (AICD) Rotator cuff repair Completed 1post [id number] CLOTS Social History Social History Type Response Substance Abuse Use: None. Exercise Exercise frequency: 3-4 times/week. Exercise type: Walking. Employment/School Status: Retired. Alcohol Past Smoking Status Former smoker; Exposure to Tobacco Smoke None; Cigarette Smoking Last 365 Days No; Reg Smoking Cessation Counseling Yes; Other Tobacco Frequency quit 1975; entered on: 07/12/18 Assessment and Plan Extracted from: Title: Electrophysiology Author: Elana Valentine BOX TOE BUFFER BOX TOE BUFFER Date: Progress Daily [facility] Completed: Thursday, MAY 28, 2018, 10:00 by Elana Valentine BOX TOE BUFFER BOX TOE BUFFER RM: [facility] - [address], [address] [facility] Tel [place] [address] 82y (: 1935) M Attending: Roger Recio MD Service: Cardiology Reason for Admission: AFIB Working DRG: Code status: Full Code Current diet: Isolation: No Isolation/Standard Precautions Allergies: NKFA, sulfa drugs(N/V, Allergy to sulfa drugs) SUBJECTIVE Pt denies complaints OBJECTIVE Pt sitting in bed, no acute distress noted ASSESSMENT & EXAM Alert, oriented CV: RRR, paced RESP: CTA, shallow EXT: No edema, bilateral femoral access sites CDI, no thrill, bruit, bleeding, or hematoma noted PLAN & TREATMENT Chronic Atrial Fibrillation with H/O Atrial Flutter: Pt with H/O efforts to control with medication and cardioversion. Now S/P LAAO placement due to intolerance of anticoagulation due to easy bruising a nd high injury/fall risk as pt requires walker to ambulate and is unsteady. On evaluation pt has high emobolic risk [id number] score of 6 requiring CVA protection, pt also with moderate HASBLED score and high fall risk making anticoagulation prohibitive, LAAO device placed. Pt OK to DC home, follow-up in 2 weeks. Continue home meds. Continue diabetic diet. Care and activity instructions given. 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 Continue BB and PATRICIA. CAD: [place]. Continue statin and BB. No ASA due to easy bruising and debility with high fall risk. DM Type 2: Continue Rx. HTN: BP stable. HLD: Continue statin. Debility: Pt sitll weak, high fall risk baseline, requires walker and is baseline unsteady when ambulatory 24hr Labs 05/28 0734 POC Performing Locatio See Note Glucose POC 96 05/28 0534 Glucose Lvl 114 H BUN 21 Creatinine Lvl 1.30 Sodium Lvl 139 Potassium Lvl 4.2 Chloride Lvl 106 CO2 21 L AGAP 16.2 Calcium Lvl 8.5 eGFR 50 Magnesium Lvl 2.0 05/27 1717 POC Performing Locatio See Note Glucose POC 93 05/27 1402 POC Activated Clotting 367 POC Performing Locatio See Note 05/27 0917 ABO/Rh O POS Antibody Scrn Negative XM EXM Interp Compatible XM EXM Interp Compatible Sodium Lvl 137 Potassium Lvl 5.1 Chloride Lvl 105 CO2 21 L AGAP 16.1 Glucose Lvl 112 H Creatinine Lvl 1.50 H BUN 27 H B/C Ratio 18 Total Protein 8.1 Albumin Lvl 3.4 L Globulin 4.7 H A/G Ratio 0.7 Calcium Lvl 9.0 ALT 15 AST 22 Alk Phos 73 Bili Total 0.7 eGFR 42 WBC 7.1 RBC 4.25 L Hgb 11.6 L Hct 34.9 L MCV 82.2 MCH 27.3 MCHC 33.3 RDW 20.5 H Platelet 261 MPV 7.8 Segs 63.3 Monocytes 9.2 Lymphocytes 23.0 Eosinophils 2.8 Basophils 1.7 H Segs-Bands # 4.5 Lymphocytes # 1.6 Monocytes # 0.7 Eosinophils # 0.2 Basophils # 0.1 PT 15.9 H INR 1.26 H PTT 30.9 05/27 09 RBC product Product available Vitals Tmp(F) Pulse BP RR SpO2 FIO2 05/28 08:00 98.2 70 104/58 16 100 --- 05/28 04:00 98.4 73 105/63 20 100 --- 05/28 03:38 ---- --- 104/58 -- --- --- 05/28 02:30 ---- --- 94/52 -- --- --- 05/28 01:30 ---- --- 98/47 -- --- --- 24 Hr Tmax: 98.6F (37.00c) at 05/27 22:30 Vital Signs are the last 5 in the past 48 hours. Date Wt(kg) Wt(lb) Ht(cm) Ht(in) Method 05/28 87.91 193.40 Measured 05/27 82.73 182.00 175.26 69.00 Measured 05/25 (initial) 83.64 184.00 Estimated 05/25 175.26 69.00 Stated I&O Record In Out Bal 05/28 24hr Tot 10 0 10 05/27 24hr Tot 1128 350 778 Medications (33) Active Scheduled Meds (9): 05/28/18 atorvastatin (Lipitor) 20 mg PO Daily 05/28/18 captopril 25 mg PO BID 05/28/18 carvedilol 6.25 mg PO BID 05/29/18 glipiZIDE (Glucotrol) 2.5 mg PO Before Breakfast 05/28/18 omega-3 polyunsaturated fatty acids (MaxEPA) 1 gm PO Daily 05/28/18 pantoprazole (Protonix) 40 mg PO Daily 05/28/18 ranolazine (Ranexa) 500 mg PO BID 05/28/18 rivaroxaban 15 mg PO Daily 05/27/18 sodium chloride (Saline Flush 0.9%) 10 ml IVP Q12H Unscheduled Meds: None PRN Meds (15): 05/27/18 acetaminophen-codeine (acetaminophen-codeine #3) 1 tab PO Q6H 05/27/18 acetaminophen-codeine (acetaminophen-codeine #3) 2 tab PO Q6H 05/27/18 acetaminophen (Tylenol) 650 mg PO Q6H 05/27/18 albuterol (ANES albuterol 0.083% inhalation solution) 2.49 mg NEB Q20Min 05/27/18 atropine (ANES atropine) 0.2 mg IVP Q5Min 05/27/18 diphenhydrAMINE (ANES diphenhydrAMINE) 12.5 mg IVP Q6H 05/27/18 ePHEDrine (ANES ePHEDrine) 5 mg IVP Q5Min 05/27/18 flumazenil (ANES flumazenil) 0.2 mg IVP PRN 05/27/18 glycopyrrolate (ANES glycopyrrolate) 0.2 mg IVP Q5Min 05/27/18 morphine Sulfate 2 mg IVP Q2H 05/27/18 morphine Sulfate 4 mg IVP Q2H 05/27/18 naloxone (ANES naloxone) 0.4 mg IVP Q2MIN 05/27/18 oxyCODONE (ANES oxyCODONE) 2.5 mg PO Q4H 05/27/18 racepinephrine (ANES racepinephrine) 11.25 mg NEB PRN 05/27/18 sodium chloride (Saline Flush 0.9%) 10 ml IVP PRN One Time Meds (9): (Completed) ceFAZolin (ceFAZolin (ANES)) IV ONCE (Completed) ePHEDrine (ePHEDrine (ANES)) IV ONCE (Completed) etomidate (Amidate (ANES)) IV ONCE (Completed) fentaNYL (fentaNYL (ANES)) IV ONCE (Completed) glycopyrrolate (glycopyrrolate (ANES)) IV ONCE (Completed) neostigmine (neostigmine (ANES)) IV ONCE (Completed) norepinephrine (norepinephrine (ANES)) IV ONCE (Completed) phenylephrine (phenylephrine (ANES)) IV ONCE (Completed) rocuronium (rocuronium (ANES)) IV ONCE Continuous Infusions: None
--- OUTSIDE RECORDS SUMMARY | 2019-02-28 05:38 | XMS REPORT | Summary of Care ---
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) - Hyperlipidemia, unspecified (Final) - Presence of automatic (implantable) cardiac defibrillator (Final) - Discharge Disposition: Home or Self Care Attending Physician: Roger Recio MD Referring Physician: Abner Greenberg MD Vital Signs Most recent to oldest [Reference Range]: 1 Height 175.26 cm (07/12/18 9:20 AM) Weight 83.636 kg (07/12/18 9:20 AM) Body Mass Index 27.23 m2 (07/12/18 9:20 AM) Problem List Condition Effective Dates Status Health Status Informant Afib(Confirmed) Active Atrial fibrillation(Confirmed) Active CAD - Coronary artery Active disease(Confirmed) Cardiomyopathy(Confirmed) Active CHF (congestive heart Active failure)(Confirmed) Diabetes(Confirmed) Active DM - Diabetes mellitus(Confirmed) Active Heartburn(Confirmed) Resolved HTN - Hypertension(Confirmed) Active Hyperlipidemia(Confirmed) Active HLD (hyperlipidemia)(Confirmed) Resolved HTN (hypertension)(Confirmed) Active 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(Confirmed) LA - Myocardial Active infarction(Confirmed) LA (myocardial Active infarction)(Confirmed) Replacement of pacemaker pulse 07/14/12 Active generator(Confirmed) VT - Ventricular Active tachycardia(Confirmed) Allergies, Adverse Reactions, Alerts Substance Reaction Severity Status sulfa drugs N/V Active Allergy to sulfa drugs NKFA Active Medications No Known Medications Results Most recent to oldest [Reference Range]: 1 eGFR 50 mL/min/1.73m2 1 *NA* (07/12/18 9:42 AM) POC BUN [7-22 mg/dL] 25 mg/dL *HI* (07/12/18 9:42 AM) POC Ion Ca [1.05-1.25 mMol/L] 1.21 mMol/L (07/12/18 9:42 AM) POC Chloride [95-109 mEq/L] 107 mEq/L (07/12/18 9:42 AM) POC Carbon Dioxide [24-32 mEq/dL] 24 mEq/dL (07/12/18 9:42 AM) POC Creatinine [0.5-1.4 mg/dL] 1.3 mg/dL (07/12/18 9:42 AM) POC Glucose [70-99 mg/dL] 149 mg/dL *HI* (07/12/18 9:42 AM) POC Hematocrit [42.0-54.0 %] 36.0 % *LOW* (07/12/18 9:42 AM) POC Hemoglobin [14.0-18.0 g/dL] 12.2 g/dL *LOW* (07/12/18 9:42 AM) POC Potassium [3.5-5.1 mEq/L] 5.0 mEq/L (07/12/18 9:42 AM) POC Sodium [135-145 mEq/L] 140 mEq/L (07/12/18 9:42 AM) POC AGAP [10.0-20.0 mEq/L] 15.0 mEq/L (07/12/18 9:42 AM) 1Result Comment: The eGFR is calculated [...] should be multiplied by the estimated BMI. Immunizations Given and Recorded Vaccine Date Status Refusal Reason pneumococcal 13-valent vaccine 09/24/16 Given Procedures Procedure Date Related Diagnosis Body Site Status ANNIE procedure1 07/12/18 Completed ANNIE procedure2 05/24/18 Completed Appendectomy Completed CABG - Coronary artery bypass graft Completed Cataract surgery Completed Implantation of automatic Completed cardioverter/defibrillator, total system (AICD) Rotator cuff repair Completed 1post [id number] CLOTS Social History Social History Type Response [...]
[2019-02-28 06:35] LABS: Absolute Lymphocytes (CBC) 1.2 K/uL (0.7-4.9); Basophils % 0.6 % (0-1.3); Eosinophils % 3.1 % (0-4.4); Hematocrit 38.1 % (39.6-49.0); Lymphocytes % 18.1 % (15.3-44.8); MPV 7.6 fL (7.6-11.3); Monocytes % 9.9 % (3.3-12.3); RBC Red Blood Cell Count 4.19 M/uL (4.33-5.43)
[2019-02-28 06:41] LABS: Protime INR 1.13
[2019-02-28 06:57] LABS: Albumin 3.3 g/dL (3.4-5.0); Bilirubin Direct 0.2 mg/dL (0-0.2); Bilirubin Total 0.5 mg/dL (0.2-1.0); Magnesium 2.2 mg/dL (1.8-2.4); Potassium 4.4 mmol/L (3.5-5.1); Protein, Total 7.5 g/dL (6.4-8.2); Troponin (Emerg Dept Use Only) 0.02 ng/mL (0.0-0.045)
--- NOTE | 2019-02-28 07:51 | EKG ---
Test Date: 2019-02-28 Test Time: 06:24:48 Board Certified Music Therapist: RR MEASUREMENT RESULTS: Intervals: Rate: 70 NV: QRSD: 202 QT: 506 QTc: 546 [place]: P: NV: QRS: 215 T: 43 INTERPRETIVE STATEMENTS: Rhythm consistent with VVI pacing Atrial fibrillation with no AV conduction Abnormal ECG Compared to ECG 10/15/2018 21:34:09 Significant changes have occurred Electronically Signed On 02-28-19 07:51:19 CDT by Arjun Brown
--- NOTE | 2019-02-28 08:31 | RAD REPORT ---
EXAM DESCRIPTION: CT - Head angio - 02/28/2019 8:10 am CLINICAL HISTORY: involuntary arm movements Headache, drowsiness, CVA symptomology COMPARISON: Head Brain Wo Cont dated 02/28/2019; Head Brain Wo Cont dated 07/18/2018 TECHNIQUE: CT angiography of the head was performed with MIPs. All CT scans are performed using dose optimization technique as appropriate and may include automated exposure control or mA/KV adjustment according to patient size. FINDINGS: No evidence of aneurysm is detected. No flow-limiting stenosis or vascular malformation id entified. Antegrade flow is seen in the vertebral arteries. The vertebral arteries are codominant. The visualized dural venous sinuses are patent. IMPRESSION: No significant flow abnormality is detected.
--- NOTE | 2019-02-28 08:35 | RAD REPORT ---
EXAM DESCRIPTION: CT - Neck Angio - 02/28/2019 8:11 am CLINICAL HISTORY: involuntary arm movements Headache, drowsiness, CVA symptomology COMPARISON: Head C Spine Mpr Wo Con dated 06/07/2016; [id number] dated 07/28/2007; CT MULTIPLA ROS RECONSTRUCTION dated 07/28/2007 TECHNIQUE: CT angiography of the neck vessels was performed with MIPs. All CT scans are performed using dose optimization technique as appropriate and may include automated exposure control or mA/KV adjustment according to patient size. FINDINGS: A left aortic arch is identified with normal three vessel configuration of the great vesse ls. No significant flow abnormality is seen of the common carotid bilaterally. Moderate hard plaquing is seen in both proximal internal carotid arteries, greater on the right. Sten osis of the proximal right ICA is estimated at 50% based on NASCET criteria. Left-sided stenosis is l ess than 50%. Antegrade flow seen in both vertebral arteries. No evidence of carotid dissection or occlusion. IMPRESSION: Moderate atheromatous plaquing in both proximal internal carotid arteries, greater on th e right, where 50% stenosis of the right carotid bulb is suspected based on NASCET criteria.
--- NOTE | 2019-02-28 08:47 | ER ---
Nurse's Notes [facility] Name: Екатерина Hare Age: 83 yrs Sex: Male : 1935 Arrival Date: 02/28/2019 Time: 05:36 Bed 7 Private MD: Diagnosis: Involuntary Muscle movement - resolved Presentation: 02/28 05:35 Presenting complaint: EMS states: started to have involuntary movement of his left arm, rr5 started around 0330H. no other neurological deficit noted. 05:35 Transition of care: patient was not received from another setting of care. Onset of rr5 symptoms was February 28, 2019 at 03:30. Risk Assessment: Do you want to hurt yourself or someone else? Patient reports no desire to harm self or others. Initial Sepsis Screen: Does the patient meet any 2 criteria? No. Patient's initial sepsis screen is negative. Does the patient have a suspected source of infection? No. Patient's initial sepsis screen is negative. Note patient has defib/pacemaker and watchman device. Care prior to arrival: None. 05:35 Method Of Arrival: EMS: [facility] rr5 05:35 Acuity: NICOLE 3 rr5 05:35 Note CBG 130 mg/dl byEMS. rr5 Historical: - Allergies: 05:35 Sulfa (Sulfonamide Antibiotics); rr5 - Home Meds: 05:35 carvedilol 12.5 mg Oral tab [Active]; glimepiride 1 mg Oral tab 1 tab once daily rr5 [Active]; Aspirin Oral [Active]; Ranexa 500 mg Oral Tb12 1 tab 2 times per day [Active]; docusate sodium 100 mg Oral cap 1 cap once daily [Active]; Fish Oil Oral [Active]; lovastatin 40 mg Oral tab 1 tab nightly [Active]; omeprazole 20 mg Oral cpDR 1 cap once daily [Active]; - PMHx: 05:35 Atrial Fib; CAD; cardiomyopathy; CHF; COPD; Diabetes - NIDDM; Hyperlipidemia; rr5 Hypertension; Myocardial infarction; Pacemaker; Pneumonia; defibrilllator; - PSHx: 05:35 watchman device; rr5 05:49 hemorrhoid repair; Appendectomy; rr5 - Immunization history:: Adult Immunizations up to date. - Social history:: Smoking status: Patient/guardian denies using tobacco, Patient/guardian denies using alcohol, street drugs. - Ebola Screening: : Patient negative for fever greater than or equal to 101.5 degrees Fahrenheit, and additional compatible Ebola Virus Disease symptoms Patient denies exposure to infectious person Patient denies travel to an Ebola-affected area in the 21 days before illness onset. Screenin:37 VAN Screening: Arm Drift: Patient shows no arm weakness. Patient is VAN negative. rr5 05:39 Abuse screen: Denies threats or abuse. Nutritional screening: No deficits noted. tl2 Tuberculosis screening: No symptoms or risk factors identified. Fall Risk Gait- Weak (10 pts.). Assessment: 05:38 General: Appears in no apparent distress. comfortable, Behavior is calm, cooperative, tl2 appropriate for age. Pain: Denies pain. Neuro: Level of Consciousness is awake, alert, obeys commands, Oriented to person, place, time, situation, Pet Technologist are equal bilaterally Speech is normal, Facial symmetry appears normal. Cardiovascular: Denies chest pain. Cardiovascular: Denies Any feeling of defibrillator "firing". Respiratory: Airway is patent Respiratory effort is even, unlabored, Respiratory pattern is regular, symmetrical. GI: No signs and/or symptoms were reported involving the gastrointestinal system. : No signs and/or symptoms were reported regarding the genitourinary system. Derm: Skin is pink, warm \\T\\ dry. Musculoskeletal: Reports Involuntary spastic movement of left arm Denies weakness in left arm numbness in, left arm. 07:35 Reassessment: Patient appears in no apparent distress at this time. Patient and/or hb family updated on plan of care and expected duration. Pain level reassessed. Patient is alert, oriented x 3, equal unlabored respirations, skin warm/dry/pink. Vital Signs: 05:35 BP 127 / 71; Pulse 70; Resp 19; Temp 97.6; Pulse Ox 99% ; Weight 78.93 kg; Height 5 ft. rr5 9 in. (175.26 cm); Pain 0/10; 06:06 BP 118 / 68; Pulse 70; Resp 19; Pulse Ox 98% on R/A; tl2 06:49 BP 124 / 72 Supine; Pulse 70; Resp 16; Pulse Ox 98% ; rr5 06:50 BP 126 / 64 Sitting; Pulse 71; Resp 15; Pulse Ox 99% ; rr5 06:51 BP 124 / 66 Standing; Pulse 73; Resp 16; Pulse Ox 98% ; rr5 07:32 BP 115 / 60; Pulse 71; Resp 15; Pulse Ox 100% on R/A; hb 08:40 BP 116 / 69; Pulse 70; Resp 16; Pulse Ox 99% on R/A; sg 05:35 Body Mass Index 25.70 (78.93 kg, 175.26 cm) rr5 Vitals: 06:06 Cardiac Rhythm Assessment Paced. tl2 [place] Coma Score: 05:35 Eye Response: spontaneous(4). Verbal Response: oriented(5). Motor Response: obeys rr5 commands(6). Total: 15. ED Course: 05:36 Patient arrived in ED. tl2 05:39 Patient has correct armband on for positive identification. Bed in low position. Call tl2 light in reach. Side rails up X2. 05:41 Triage completed. rr5 05:49 air sampling and monitoring on. Pulse ox on. NIBP on. rr5 06:19 [facility]C [facility] kb 06:19 Kang Oneal MD is Attending Physician. kb 06:27 Arm band placed on right wrist. tl2 06:27 Inserted saline lock: 22 gauge in right forearm, using aseptic technique. Blood tl2 collected. 06:40 CT Head Brain wo Cont In Process Unspecified. EDMS 08:13 Head angio In Process Unspecified. EDMS 08:13 Neck Angio In Process Unspecified. EDMS 08:42 Andres Keita MD is Referral Physician. kb 08:55 No provider procedures requiring assistance completed. IV discontinued, intact, sg bleeding controlled, No redness/swelling at site. Pressure dressing applied. Administered Medications: No medications were administered Outcome: 08:43 Discharge ordered by . kb 08:55 Discharged to home via wheelchair, with family. 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 safety practices, Demonstrated understanding of instructions, follow-up care. 08:58 Patient left the ED. hb Signatures: Dispatcher [employer] EDMS Simona Elena FNP-C FNP-Ckb Gay, Steven, RN RN sg Binta Montaño RN RN Sandra Ortiz RN RN tl2 Hayward, Lorenzo, RN RN rr5 Corrections: (The following items were deleted from the chart) 06:27 06:27 Inserted saline lock: 22 gauge in right forearm, using aseptic technique. tl2 tl2
--- NOTE | 2019-02-28 08:47 | EDPHYS ---
Physician Documentation [facility] Name: Екатерина Hare Age: 83 yrs Sex: Male : 1935 Arrival Date: 02/28/2019 Time: 05:36 Bed 7 Private MD: ED Physician Kang Oneal HPI: 02/28 07:00 This 83 yrs old Male presents to ER via EMS with complaints of involuntary kb movement of left arm. 07:01 The patient presents to the emergency department with involuntary movement of left kb upper extremity. Onset: The symptoms/episode began/occurred at 03:30. Context: occurred at home, occurred while the patient was sitting. Associated signs and symptoms: Pertinent positives: involuntary movement of left upper extremity, lightheadedness upon sitting, Pertinent negatives: altered mental status, chills, dizziness, fever, headache, nausea, neck stiffness, paresthesias, seizure, syncope, near-syncope, blurred vision, double vision, visual field changes, loss of vision, weakness. Severity of symptoms: At their worst the symptoms were moderate in the emergency department the symptoms have resolved and did so just prior to arrival. Patient's baseline: Neuro: alert and fully oriented, Motor: no deficits, Ambulation: walks without assistance, Speech: normal. Current symptoms: Currently, the patient is not experiencing any symptoms, the patient feels back to baseline, no decreased level of consciousness, no confusion, no dysphasia, no headache, no paralysis, no visual changes. The patient has not experienced similar symptoms in the past. The patient has not recently seen a physician. Pt reports he was sitting on the side of the bed and his arm started moving on it's own. It has happened about 6 times since onset, last time was in ambulance on the way here. States the episodes last approx 30 seconds and go away. Denies weakness, pain, or any other symptoms. Has no complaints at this time. . Historical: - Allergies: 05:35 Sulfa (Sulfonamide Antibiotics); rr5 - Home Meds: 05:35 carvedilol 12.5 mg Oral tab [Active]; glimepiride 1 mg Oral tab 1 tab once daily rr5 [Active]; Aspirin Oral [Active]; Ranexa 500 mg Oral Tb12 1 tab 2 times per day [Active]; docusate sodium 100 mg Oral cap 1 cap once daily [Active]; Fish Oil Oral [Active]; lovastatin 40 mg Oral tab 1 tab nightly [Active]; omeprazole 20 mg Oral cpDR 1 cap once daily [Active]; - PMHx: 05:35 Atrial Fib; CAD; cardiomyopathy; CHF; COPD; Diabetes - NIDDM; Hyperlipidemia; rr5 Hypertension; Myocardial infarction; Pacemaker; Pneumonia; defibrilllator; - PSHx: 05:35 watchman device; rr5 05:49 hemorrhoid repair; Appendectomy; rr5 - Immunization history:: Adult Immunizations up to date. - Social history:: Smoking status: Patient/guardian denies using tobacco, Patient/guardian denies using alcohol, street drugs. - Ebola Screening: : Patient negative for fever greater than or equal to 101.5 degrees Fahrenheit, and additional compatible Ebola Virus Disease symptoms Patient denies exposure to infectious person Patient denies travel to an Ebola-affected area in the 21 days before illness onset. ROS: 06:41 Constitutional: Negative for fever, chills, and weight loss, ENT: Negative for injury, kb pain, and discharge, Neck: Negative for injury, pain, and swelling, Cardiovascular: Negative for chest pain, palpitations, and edema, Respiratory: Negative for shortness of breath, cough, wheezing, and pleuritic chest pain, Abdomen/GI: Negative for abdominal pain, nausea, vomiting, diarrhea, and constipation, Back: Negative for injury and pain, : Negative for injury, bleeding, discharge, and swelling, MS/Extremity: Negative for injury and deformity, Skin: Negative for injury, rash, and discoloration. 06:41 Neuro: Positive for of the left arm, involuntary movements, lightheaded upon sitting up, Negative for altered mental status, dizziness, gait disturbance, headache, hearing loss, loss of consciousness, numbness, seizure activity, speech changes, syncope, near syncope, tingling, tinnitus, tremor, visual changes, weakness. Exam: 06:42 Constitutional: This is a well developed, well nourished patient who is awake, alert, kb and in no acute distress. Head/Face: Normocephalic, atraumatic. Eyes: Pupils equal round and reactive to light, extra-ocular motions intact. Lids and lashes normal. Conjunctiva and sclera are non-icteric and not injected. Cornea within normal limits. Periorbital areas with no swelling, redness, or edema. ENT: Nares patent. No nasal discharge, no septal abnormalities noted. Tympanic membranes are normal and external auditory canals are clear. Oropharynx with no redness, swelling, or masses, exudates, or evidence of obstruction, uvula midline. Mucous membranes moist. Neck: Trachea midline, no thyromegaly or masses palpated, and no cervical lymphadenopathy. Supple, full range of motion without nuchal rigidity, or vertebral point tenderness. No Meningismus. Chest/axilla: Normal chest wall appearance and motion. Nontender with no deformity. No lesions are appreciated. Cardiovascular: Regular rate and rhythm with a normal S1 and S2. No gallops, murmurs, or rubs. Normal PMI, no JVD. No pulse deficits. Respiratory: Lungs have equal breath sounds bilaterally, clear to auscultation and percussion. No rales, rhonchi or wheezes noted. No increased work of breathing, no retractions or nasal flaring. Abdomen/GI: Soft, non-tender, with normal bowel sounds. No distension or tympany. No guarding or rebound. No evidence of tenderness throughout. Skin: Warm, dry with normal turgor. Normal color with no rashes, no lesions, and no evidence of cellulitis. MS/ Extremity: Pulses equal, no cyanosis. Neurovascular intact. Full, normal range of motion. Neuro: Awake and alert, GCS 15, oriented to person, place, time, and situation. Cranial nerves II-XII grossly intact. Motor strength 5/5 in all extremities. Sensory grossly intact. Cerebellar exam normal. Normal gait. Vital Signs: 05:35 BP 127 / 71; Pulse 70; Resp 19; Temp 97.6; Pulse Ox 99% ; Weight 78.93 kg; Height 5 ft. rr5 9 in. (175.26 cm); Pain 0/10; 06:06 BP 118 / 68; Pulse 70; Resp 19; Pulse Ox 98% on R/A; tl2 06:49 BP 124 / 72 Supine; Pulse 70; Resp 16; Pulse Ox 98% ; rr5 06:50 BP 126 / 64 Sitting; Pulse 71; Resp 15; Pulse Ox 99% ; rr5 06:51 BP 124 / 66 Standing; Pulse 73; Resp 16; Pulse Ox 98% ; rr5 07:32 BP 115 / 60; Pulse 71; Resp 15; Pulse Ox 100% on R/A; hb 08:40 BP 116 / 69; Pulse 70; Resp 16; Pulse Ox 99% on R/A; sg 05:35 Body Mass Index 25.70 (78.93 kg, 175.26 cm) rr5 [place] Coma Score: 05:35 Eye Response: spontaneous(4). Verbal Response: oriented(5). Motor Response: obeys rr5 commands(6). Total: 15. MDM: 06:21 Patient medically screened. kb 06:41 Data reviewed: vital signs, nurses notes. Data interpreted: Pulse oximetry: on room air kb is 98 %. Interpretation: normal. 07:04 ED course: Pt neuro exam is normal. Pt has equal strength. reflexes wnl.. kb 07:54 ED course: Dr Sultana evaluated pt as well. Will do CT angio head and neck. 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 Pt has no complaints at this time. Neuro exam is normal. Pt and family comfortable with going home and following up with Dr Keita. Pt has seen Dr Keita in the past. . 08:41 Counseling: I had a detailed discussion with the patient and/or guardian regarding: the kb historical points, exam findings, and any diagnostic results supporting the discharge/admit diagnosis, lab results, radiology results, the need for outpatient follow up, a family practitioner, a neurologist, to return to the emergency department if symptoms worsen or persist or if there are any questions or concerns that arise at home. 02/28 06:20 Order name: Basic Metabolic Panel kb 02/28 06:20 Order name: CBC with Diff; Complete Time: 06:40 kb 02/28 06:20 Order name: LFT's; Complete Time: 06:59 kb 02/28 06:20 Order name: Magnesium; Complete Time: 06:59 kb 02/28 06:20 Order name: NT PRO-BNP; Complete Time: 06:59 kb 02/28 06:20 Order name: PT-INR; Complete Time: 06:48 kb 02/28 06:20 Order name: CT Head Brain wo Cont kb 02/28 06:20 Order name: Troponin (emerg Dept Use Only); Complete Time: 06:59 kb 02/28 06:20 Order name: EKG; Complete Time: 06:22 kb 02/28 06:20 Order name: Cardiac monitoring; Complete Time: 06:27 kb 02/28 06:20 Order name: EKG - Nurse/Tech; Complete Time: 06:27 kb 02/28 06:22 Order name: Basic Metabolic Panel; Complete Time: 06:59 EDMS 02/28 07:48 Order name: Head angio; Complete Time: 08:32 EDMS 02/28 07:48 Order name: Neck Angio; Complete Time: 08:36 EDMS 02/28 06:20 Order name: IV Saline Lock; Complete Time: 06:27 kb 02/28 06:20 Order name: Labs collected and sent; Complete Time: 06:27 kb 02/28 06:20 Order name: O2 Per Protocol; Complete Time: 06:26 kb 02/28 06:20 Order name: O2 Sat Monitoring; Complete Time: 06:26 kb 02/28 06:42 Order name: Orthostatics; Complete Time: 06:51 kb Administered Medications: No medications were administered Disposition: 09:30 Co-signature as Attending Physician, Kang Oneal MD I agree with the assessment and wa plan of care. Disposition: 02/28/19 08:43 Discharged to Home. Impression: Involuntary Muscle movement - resolved. - Condition is Stable. - Medication Reconciliation Form, Thank You Letter, Antibiotic Education, Prescription Opioid Use form. - Follow up: Emergency Department; When: As needed; Reason: Worsening of condition. Follow up: Private Physician; When: 2 - 3 days; Reason: Recheck today's complaints, Continuance of care, Re-evaluation by your physician. Follow up: Andres Keita MD; When: 1 - 2 days; Reason: Recheck today's complaints, Continuance of care, Re-evaluation by your physician. Signatures: Dispatcher [employer] EDMS Simona Elena, GLASSWARE DEFECT REPAIRER-C GLASSWARE DEFECT REPAIRER-Binta Miner RN RN hb Appiah, William, MD MD wa Roque, Raymond RN RN rr5 Corrections: (The following items were deleted from the chart) 08:58 08:43 02/28/2019 08:43 Discharged to Home. Impression: Involuntary Muscle movement - hb resolved. Condition is Stable. Forms are Medication Reconciliation Form, Thank You Letter, Antibiotic Education, Prescription Opioid Use. Follow up: Emergency Department; When: As needed; Reason: Worsening of condition. Follow up: Private Physician; When: 2 - 3 days; Reason: Recheck today's complaints, Continuance of care, Re-evaluation by your physician. Follow up: Andres Keita; When: 1 - 2 days; Reason: Recheck today's complaints, Continuance of care, Re-evaluation by your physician. kb
[2019-02-28 09:30] VITALS: TEMP 97.6
[2019-02-28 09:37] VITALS: BP 116/69; O2SAT 99
--- NOTE | 2019-02-28 10:05 | RAD REPORT ---
EXAM DESCRIPTION: CT Head Without Intravenous Contrast CLINICAL HISTORY: The patient is 83 years old and is Male; involuntary muscle movement, lightheadedn ess TECHNIQUE: Axial computed tomography images of the head/brain without intravenous contrast. Sagitt al and coronal reformatted images were created and reviewed. This CT exam was performed using one o r more of the following dose reduction techniques: automated exposure control, adjustment of the mA and/or kV according to patient size, and/or use of iterative reconstruction technique. COMPARISON: No relevant prior studies available. FINDINGS: BRAIN: There is diffuse cerebral atrophy present, consistent with this patient's age. There is patchy hypoattenuation of the deep white matter which is non-specific, but most likely owing to chronic small vessel ischemic change in a patient of this age group. 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 VENTRICLES: There is diffuse prominence of the ventricles, which is likely related to central at rophy. BONES/JOINTS: No acute fracture. SOFT TISSUES: Unremarkable. SINUSES: Unremarkable as visualized. No acute sinusitis. MASTOID AIR CELLS: Unremarkable as visualized. No mastoid effusion. IMPRESSION: Age-related atrophy and chronic white matter ischemic changes, with no evidence of an ac shayna intracranial abnormality. Electronically signed by: Tami Avila MD 02/28/2019 6:52 AM CDT Due to temporary technical issues with the PACS/Fluency reporting system, reports are being signed by the in house radiologist as a courtesy to ensure prompt reporting. The interpreting radiologist is f ully responsible for the content of the report.
== END 2019-02-28 08:58 | disposition home or self-care (01) ==
LOC: ER 05:34
DX: R25.9 Unspecified abnormal involuntary movements (principal); I10 Essential (primary) hypertension; E11.9 Type 2 diabetes mellitus without complications; I48.91 Unspecified atrial fibrillation; E78.5 Hyperlipidemia, unspecified; Z79.01 Long term (current) use of anticoagulants; Z88.2 Allergy status to sulfonamides; Z95.810 Presence of automatic (implantable) cardiac defibrillator
CPT/HCPCS: 93005; 85025; 80048; 36415; 83735; 85610; 80076; 84484; 83880; 70450; 70496; 70498; 99284; Q9967

== ENCOUNTER 2021-07-09 10:18 | Day surgery (SDC) | payer OTHER, MEDICARE ==
[2021-07-03 09:37] LABS: Absolute Lymphocytes (CBC) 1.5 K/uL (0.7-4.9); Basophils % 0.6 % (0-1.3); Hematocrit 41.2 % (39.6-49.0); Lymphocytes % 12.8 % (15.3-44.8); MPV 7.6 fL (7.6-11.3)
[2021-07-03 09:39] LABS: Protime INR 1.17
--- NOTE | 2021-07-03 09:56 | RAD REPORT ---
EXAM DESCRIPTION: RAD - Chest Pa And Lat (2 Views) - 07/03/2021 9:18 am CLINICAL HISTORY: Pre Op pending surgery COMPARISON: Chest Single View dated 10/15/2018; Chest Single View dated 07/20/2018; Chest Single View dated 07/18/2018; Chest Pa And Lat (2 Views) dated 10/13/2017; CTSTONE PROTOCOL dated 08/31/2012 FINDINGS: Lines: Left subclavian approach pacemaker/ICD Lungs: Numerous calcified lung nodules. No edema or consolidation. Pleural: No significant pleural effusions or pneumothorax. Cardiac: Mild cardiomegaly. Bones: No acute fractures. Soft tissue anchor in the left humeral head. Other: IMPRESSION: No acute cardiopulmonary disease.
--- NOTE | 2021-07-03 16:07 | EKG ---
Test Date: 2021-07-03 Test Time: 07:46:55 Action Installer: ELO MEASUREMENT RESULTS: Intervals: Rate: 76 MA: QRSD: 194 QT: 504 QTc: 567 [place]: P: MA: QRS: 155 T: 12 INTERPRETIVE STATEMENTS: Wide QRS rhythm with occasional premature ventricular complexes Right bundle branch block Abnormal ECG Compared to ECG 02/28/2019 06:24:48 Uncertain supraventricular rhythm now present Ventricular premature complex(es) now present Right bundle-branch block now present Ventricular-paced complex(es) or rhythm no longer present Atrial fibrillation no longer present Electronically Signed On 07-03-21 16:06:58 CDT by Saul Montemayor
[2021-07-09] MEDS ORDERED: NA CHLORIDE 0.9% 1,000 ML ONE (12:11)
[2021-07-09] MEDS ORDERED: BACITRACIN OINTMENT 14 GM TUBE TOP ONE (13:44)
[2021-07-09] MEDS ORDERED: LIDOCAINE 1% MPF 30 ML VIAL ONE (13:44)
[2021-07-09] MEDS ORDERED: BUPIVACAINE 0.25% PF 30 ML VIAL ONE (13:45)
[2021-07-09] MEDS ORDERED: CODEINE 30MG/APAP 300MG TAB PO PRN (13:53)
[2021-07-09] MEDS ORDERED: CEFAZOLIN/SWI 2gm 2 GM/20 ML SYR ONE (14:14)
[2021-07-09] MEDS ORDERED: LIDOCAINE 1% MPF 5 ML VIAL ONE (14:26)
[2021-07-09] MEDS ORDERED: propofoL 200 MG/20 ML VIAL IV ONE (14:26)
[2021-07-09] MEDS ORDERED: FENTANYL CITR 100 MCG/2 ML ONE (14:27)
[2021-07-09] MEDS ORDERED: KETOROLAC 30 MG/ML INJ ONE (15:10)
[2021-07-09 15:35] VITALS: BP 115/50; TEMP 97.6; O2SAT 97
--- NOTE | 2021-07-10 00:33 | OP ---
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 Principal Procedure: Penile biopsy. Indication For Procedure: Mr. Hare presented to the [facility]rology [facility] with a relatively painless, but hard and nodular penile mass lesion involving the entirety of the glans penis with some more superfi cial lesions observed within the preputial margin of the uncircumcised phallus. He had no palpable i nguinal adenopathy on outpatient clinical exam and was counseled as to the potential that this might represent penile carcinoma. I also discussed the potential for prostate cancer metastasized to the p hany. Preoperative PSA was less than 1 at 0.34, which would suggest this is unlikely metastasis from prostate cancer and makes penile carcinoma more likely. Procedure In Detail: The patient was consented in the preoperative holding area before being transfe rred to the operative suite where sedation was provided. He was supine on the operative table, padde d and secured appropriately. His genitalia were prepped using Betadine and draped in standard fashio n. A penile block was applied using 50:50 mixture of 0.25% Marcaine and 1% lidocaine plain. Approxi mately 30 cc was injected in the infrapubic region and in the region of the neurovascular bundles tab aterally. Once the penile block had settled in, evaluation of the area of affected tissue was perfor med and a biopsy of a lesion within the preputial margin was performed full thickness through the epi dermis and dermis taking one of the lesions off and sending it for pathologic analysis as preputial m argin penile biopsy. An additional biopsy was then taken from the glans penis and one of the many re gions of nodular tissue palpated by making an elliptical incision using an 11-blade through the mass lesion and using tenotomy scissors to excise the full thickness of the involved tissue. Beneath the friable tissue that essentially broke apart as I was excising it, an additional deeper biopsy was chanelle en in a similar fashion using the Bovie electrocautery on cut to divide a deeper component of the tis corinne from within the glans penis. Again, the tenotomy scissors were used to excise the base to determ ine the depth of invasion anticipated necessary for the pathologic analysis. I then utilized 3-0 chr omic suture in an interrupted fashion to approximate the edges of the lesion through what was clearly abnormal and friable tissue, but essentially to stop the bleeding. In the end, there was no active oozing of blood, and so we cleansed the area with saline before applying bacitracin to the site. The foreskin was deliberately left retracted at the end of the case as the patient had noted that it was more painful with the foreskin over the glans than if it was retracted where it did not cause him an y pain. There was no evidence of paraphimosis associated with the retracted foreskin; so this was al lowed. As such, the patient was awakened from anesthesia, transferred to a stretcher, and then trans ferred to the recovery room in good condition. Complications: None. Discharge Disposition: He should follow up in the Urology Clinic in 1 to 2 weeks to discuss the resu lts of the pathology, and if penile carcinoma is confirmed, we would like to arrange an MRI to assess the depth of invasion, but given his pacemaker defibrillator, this may not be an option. Instead, w liv will arrange a CT scan of the pelvis through the penis to assess the depth of invasion and to rule out any inguinal adenopathy. JASMINE/PRISCILLA Voice ID: [id number] Report ID: [id number]
== END 2021-07-09 15:30 | disposition home or self-care (01) ==
LOC: OR 10:18
PROVIDERS: ATTEND Urology
PROC: 0VBSXZX Excision of Penis, External Approach, Diagnostic (ICD-10-PCS; principal; 2021-07-09 12:00)
DX: C60.1 Malignant neoplasm of glans penis (principal); D07.4 Carcinoma in situ of penis; Z20.822 Contact with and (suspected) exposure to COVID-19
CPT/HCPCS: 54100; 93005; 87088; 85025; 87086; 80048; 36415; 85610; 82947; 88305; 87077 ×2; 87186 ×2; 71046; G0103; U0002; J2704; J3010; J0690; J7030

== ENCOUNTER 2021-07-23 09:38 | Day surgery (SDC) | payer OTHER, MEDICARE ==
[2021-07-23] MEDS ORDERED: NA CHLORIDE 0.9% 1,000 ML ONE (10:04)
[2021-07-23] MEDS ORDERED: CEFAZOLIN/SWI 2gm 2 GM/20 ML SYR ONE (10:04)
[2021-07-23] MEDS ORDERED: LIDOCAINE 1% MPF 30 ML VIAL ONE (12:16)
[2021-07-23] MEDS ORDERED: BUPIVACAINE 0.25% PF 30 ML VIAL ONE (12:17)
[2021-07-23] MEDS ORDERED: LIDOCAINE 1% 20 ML MDV ONE (12:17)
[2021-07-23] MEDS ORDERED: BACITRACIN OINTMENT 14 GM TUBE TOP ONE (12:18)
[2021-07-23] MEDS ORDERED: FENTANYL CITR 100 MCG/2 ML ONE (12:36)
[2021-07-23] MEDS ORDERED: propofoL 200 MG/20 ML VIAL IV ONE ×2 (12:37→12:50)
[2021-07-23] MEDS ORDERED: LIDOCAINE 2% MPF 5 ML VIAL ONE (12:37)
[2021-07-23] MEDS ORDERED: ONDANSETRON 4 MG/2 ML VIAL ONE (13:43)
[2021-07-23] MEDS ORDERED: KETOROLAC 30 MG/ML INJ ONE (13:50)
[2021-07-23] MEDS ORDERED: HYDROCODONE/APAP 5/325 MG TAB PO PRN (15:24)
[2021-07-23] MEDS ORDERED: HYDROCODONE/APAP 5/325 MG TAB ONE (16:13)
--- NOTE | 2021-07-23 17:47 | OP ---
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 Principle Procedure: Partial penectomy. Indication For Procedure: Mr. Hare presented to the Urology Clinic with a hard and nodular, but on ly occasionally uncomfortable glandular penile lesion. He was counseled about the potential that it might represent squamous cell carcinoma of the penis, but the difficulty in making the diagnosis via frozen section pathology. I did tell him I suspected it strongly and gave him the option to undergo a biopsy with permanent section with return if invasive squamous cell carcinoma was found, and he tom cted that approach. Squamous cell carcinoma invasive of the glans penis was found with carcinoma in situ in the foreskin. Staging CT scan done of the pelvis revealed a solitary 9 mm inguinal lymph nod e. We discussed the likely need for management of that once we confirmed the stage of the squamous c ell carcinoma involving the pubis. Procedure In Detail: The patient was consented in the preoperative holding area before being transfe rred to operative suite where general anesthesia was induced. He was given 2 g Ancef IV antimicrobia l prophylaxis and pneumo boots were provided for DVT prophylaxis. He was placed supine on the operat surya table, padded and secured appropriately. His genitalia were shaved, prepped with Betadine, and d raped in standard fashion. The case was then begun by using a 1:1 mixture of 0.25% Marcaine and 1% l idocaine and injecting 30 cc total in the region of the neurovascular bundles bilaterally as well as in the dorsal infrapubic midline. This was done as a penile block. I then turned my attention to th e glans penis, which was involved, but it was covered at this time with the foreskin. The thumb of a sterile glove was utilized as a condom to cover the involved portion of the glans penis and a 2-0 ny bc suture was placed through the glans as a holding traction suture. The penis was then placed on t raction, and a lilliana was made in the shaft skin approximately 1 cm proximal to the point of palpable i nvolvement of the glans. An incision was then made circumferentially around the penis and deepened t hrough the subcutaneous layers into the dartos layers just overlying Shearer fascia. I then continued t o deglove the penis all the way down to the base taking care to obtain hemostasis along the way using electrocautery. Once the skin was degloved all the way to the base, a half-inch Hydro drain was p laced around the phallus as a tourniquet and a clamp applied to create warm ischemia. The time was m easured while I used a 10-blade to incise through the Shearer fascia and through the corporal bodies sha rply. The urethra was visualized and was similarly divided until the specimen covered by the glove c ondom was removed and sent for pathologic analysis. Of note, the area was followed off with blue tow els which were similarly removed once the specimen was off the field. I then began to reconstruct th e corporal bodies using 2-0 PDS suture in an interrupted [id number]-[id number] fashion across each corporal body in order to achieve hemostasis. Once the entirety of the corporal bodies was sutured and tied down, the Hydro tourniquet was removed and the total warm ischemia time was 10 minutes. With no on going bleeding from the corporal bodies, I then turned my attention to the urethra and placed 4 quadr ant sutures in order to evaginate the mucosa, so it would not be retracted and would end up being mir roximated to the skin eventually. I then utilized a 3-[address] the dartos layers ove r the 2-0 PDS sutures in the corporal bodies and bury those sutures. Next, I utilized a 4-0 PDS to b ring the urethral mucosa to the shaft skin inferiorly and dorsally as necessary in order to create a neomeatus. This was done in an interrupted fashion circumferentially around the urethra until the en tirety of the urethral meatus was essentially spatulated with the mucosa approximated to the shaft sk in. Once this was done, I then utilized 4-0 Monocryl to suture the remaining shaft skin over the cor poral bodies and below the opening. Once this was done, and an 18-Prydeinig Boyer catheter was in place , 10 cc of sterile water was placed in balloon of the catheter. The entire area was excellent in cos metic appearance. I placed bacitracin around the neomeatus, and a Clive and a Coban were placed arou nd the shaft skin. The catheter was placed to the floor bag, and the patient was awakened from gener al anesthesia. He was then transferred to a stretcher and then to the recovery room in [facility]. Complications: None. Discharge Disposition: He will maintain the urethral Boyer catheter for 14 days minimum before it sh ould be removed and a voiding trial will be given in the office. We will give him 3 days of antimicr obial prophylaxis to take around the time of catheter removal as he will be out of the ciprofloxacin that he started preoperatively. JASMINE/PRISCILLA Voice ID: [id number] Report ID: [id number]
[2021-07-23 17:53] VITALS: BP 134/73; TEMP 96.9; O2SAT 96
== END 2021-07-23 17:17 | disposition home or self-care (01) ==
LOC: OR 09:38
PROVIDERS: ATTEND Urology
PROC: 0T9B70Z Drainage of Bladder with Drainage Device, Via Natural or Artificial Opening (ICD-10-PCS; 2021-07-23)
PROC: 0VBSXZZ Excision of Penis, External Approach (ICD-10-PCS; principal; 2021-07-23 12:00)
DX: D07.4 Carcinoma in situ of penis (principal); Z20.822 Contact with and (suspected) exposure to COVID-19
CPT/HCPCS: 54120; 82947 ×2; 88300; U0003; J2704; J3010; J0690; J7030; J2405

== ENCOUNTER 2021-11-15 16:09 | Emergency (ER) | payer OTHER, MEDICARE ==
[2021-11-15 19:39] LABS: Urine Blood 2+ (Negative); Urine Glucose Negative (Negative); Urine Protein 2+ (Negative)
[2021-11-15 20:01] LABS: Urine Bacteria 20-50 /HPF (NONE SEEN); Urine Mucus 2+ /HPF (NONE SEEN)
--- NOTE | 2021-11-15 20:09 | ER ---
Nurse's Notes [facility] Name: Екатерина Hare Age: 86 yrs Sex: Male : 1935 Arrival Date: 11/15/2021 Time: 16:13 Bed 12 Private MD: Diagnosis: Other mechanical complication of indwelling urethral catheter, initial encounter;UTI/ Urinary tract infection, site not specified Presentation: 11/15 16:19 Chief complaint: Patient states: he completed a radiation treatment today, and since ap3 then he has been having urine leaking around his existing urinary catheter. Patient states he is getting treatment for penile cancer and has had a partial penectomy. Coronavirus screen: At this time, the client does not indicate any symptoms associated with coronavirus-19. Ebola Screen: No symptoms or risks identified at this time. Initial Sepsis Screen: Does the patient meet any 2 criteria? No. Patient's initial sepsis screen is negative. Does the patient have a suspected source of infection? No. Patient's initial sepsis screen is negative. Risk Assessment: Do you want to hurt yourself or someone else? Patient reports no desire to harm self or others. Onset of symptoms was November 15, 2021. 16:19 Method Of Arrival: Wheelchair ap3 16:19 Acuity: NICOLE 4 ap3 Triage Assessment: 16:22 General: Appears in no apparent distress. comfortable, Behavior is calm, cooperative, ap3 appropriate for age. Pain: Denies pain. Neuro: Level of Consciousness is awake, alert, obeys commands, Oriented to person, place, time, situation, Appropriate for age Speech is normal. Cardiovascular: Patient's skin is warm and dry. Respiratory: Airway is patent Respiratory effort is even, unlabored. : Peacock in place present upon arrival Reports urinary catheter leaking from entry site. Historical: - Allergies: 16:20 Sulfa (Sulfonamide Antibiotics); ap3 - PMHx: 16:20 Atrial Fib; CAD; cardiomyopathy; CHF; defibrilllator; Diabetes - NIDDM; Hyperlipidemia; ap3 Hypertension; Myocardial infarction; Pacemaker; Pneumonia; 16:21 Penile Cancer; ap3 - PSHx: 16:21 partial penectomy; ap3 - Immunization history:: Client reports receiving the 2nd dose of the Covid vaccine, Pneumococcal vaccine is up to date, Flu vaccine is up to date. - Social history:: Smoking status: Patient/guardian denies using tobacco, the patient reports quitting approximately 35 years ago. - Family history:: not pertinent. - Hospitalizations: : No recent hospitalization is reported. Screenin:23 Abuse screen: Denies threats or abuse. Nutritional screening: No deficits noted. ap3 Tuberculosis screening: No symptoms or risk factors identified. 20:32 Fall Risk None identified. lr4 Assessment: 19:40 Reassessment: irrigated the patient's peacock per physician order. The peacock drained sv1 easily, no blood or clots noted. The collection bag was clogged. I irrigated the peacock and it continues to drain easily. The leg bag was replaced. Urine samples were sent to the lab. THe patient tolerated the procedure well.. Vital Signs: 16:19 BP 118 / 61; Pulse 71; Resp 16; Temp 97.9; Pulse Ox 98% ; Weight 78.02 kg; Height 5 ft. ap3 9 in. (175.26 cm); 20:25 BP 139 / 62; Pulse 70; Resp 18; Pulse Ox 97% on R/A; lr4 16:19 Body Mass Index 25.40 (78.02 kg, 175.26 cm) ap3 ED Course: 16:13 Patient arrived in ED. kz 16:20 Triage completed. ap3 16:23 Arm band placed on left wrist. ap3 16:30 Givoanni Treviño MD is Attending Physician. kdr 19:11 Aj Sultana MD is Attending Physician. rn 19:39 Claudio Simon, REUBEN is Primary Nurse. sv1 20:31 No provider procedures requiring assistance completed. Patient did not have IV access lr4 during this emergency room visit. 20:32 Patient has correct armband on for positive identification. Bed in low position. Call lr4 light in reach. Administered Medications: No medications were administered Outcome: 20:09 Discharge ordered by . rn 20:31 Discharged to home via wheelchair. lr4 20:31 Condition: good 20:31 Discharge instructions given to patient, family. 20:32 Patient left the ED. lr4 Signatures: Giovanni Treviño MD MD kdr Aj Sultana MD MD rn Prokisch, Amanda, RN RN ap3 Claudio Simon, REUBEN RN sv1 Jazmyn Snyder RN RN lr4 Lupe Reagan Corrections: (The following items were deleted from the chart) 16:22 16:20 PMHx: COPD; ap3 ap3
--- NOTE | 2021-11-15 20:09 | EDPHYS ---
Physician Documentation [facility] Name: Екатерина Hare Age: 86 yrs Sex: Male : 1935 Arrival Date: 11/15/2021 Time: 16:13 Bed 12 Private MD: ED Physician Aj Sultana HPI: 11/15 19:41 This 86 yrs old Unknown Male presents to ER via Wheelchair with complaints of Problem rn With Urinary Catheter. 19:41 The patient presents with urinary symptoms, urine leaking around catheter. Onset: The rn symptoms/episode began/occurred today. Modifying factors: The symptoms are alleviated by nothing, the symptoms are aggravated by nothing. Associated signs and symptoms: Pertinent negatives: abdominal pain, fever, vomiting. Severity of symptoms: At their worst the symptoms were mild, in the emergency department the symptoms are unchanged. The patient has not experienced similar symptoms in the past. The patient has been recently seen by a physician:. Pt reports today noticed urine is leaking around peacock catheter, has not had a problem with the catheter in past. No hematuria. Got last radiation today for penile cancer. No abd pain. Reports bag empty.. Historical: - Allergies: 16:20 Sulfa (Sulfonamide Antibiotics); ap3 - PMHx: 16:20 Atrial Fib; CAD; cardiomyopathy; CHF; defibrilllator; Diabetes - NIDDM; Hyperlipidemia; ap3 Hypertension; Myocardial infarction; Pacemaker; Pneumonia; 16:21 Penile Cancer; ap3 - PSHx: 16:21 partial penectomy; ap3 - Immunization history:: Client reports receiving the 2nd dose of the Covid vaccine, Pneumococcal vaccine is up to date, Flu vaccine is up to date. - Social history:: Smoking status: Patient/guardian denies using tobacco, the patient reports quitting approximately 35 years ago. - Family history:: not pertinent. - Hospitalizations: : No recent hospitalization is reported. ROS: 19:41 Constitutional: Negative for fever, chills, and weight loss, Eyes: Negative for injury, rn pain, redness, and discharge, Neck: Negative for injury, pain, and swelling, Cardiovascular: Negative for chest pain, palpitations, and edema, Respiratory: Negative for shortness of breath, cough, wheezing, and pleuritic chest pain, Abdomen/GI: Negative for abdominal pain, nausea, vomiting, diarrhea, and constipation, Back: Negative for injury and pain, : + urine leaking around catheter Neuro: Negative for headache, weakness, numbness, tingling, and seizure. Exam: 19:41 Constitutional: This is a well developed, well nourished patient who is awake, alert, rn and in no acute distress. Abdomen/GI: soft, non-tender Male : Peacock catheter in place with urine having escaped around catheter, no urine in peacock bag, no hematuria. Skin: Warm, dry MS/ Extremity: Pulses equal, no cyanosis. Neurovascular intact. Full, normal range of motion. Equal circumference. Vital Signs: 16:19 BP 118 / 61; Pulse 71; Resp 16; Temp 97.9; Pulse Ox 98% ; Weight 78.02 kg; Height 5 ft. ap3 9 in. (175.26 cm); 20:25 BP 139 / 62; Pulse 70; Resp 18; Pulse Ox 97% on R/A; lr4 16:19 Body Mass Index 25.40 (78.02 kg, 175.26 cm) ap3 MDM: 19:11 Patient medically screened. rn 20:07 Differential diagnosis: UTI, urinary retention, Peacock catheter problem. Data reviewed: rn vital signs, nurses notes, lab test result(s), and as a result, I will discharge patient. Counseling: I had a detailed discussion with the patient and/or guardian regarding: the historical points, exam findings, and any diagnostic results supporting the discharge/admit diagnosis, lab results, the need for outpatient follow up, to return to the emergency department if symptoms worsen or persist or if there are any questions or concerns that arise at home. Response to treatment: the patient's symptoms have resolved after treatment, the patient's condition has returned to base line, the patient is now symptom free, and as a result, I will discharge patient. Special discussion: I discussed with the patient/guardian in detail that at this point there is no indication for admission to the hospital. It is understood, however, that if the symptoms persist or worsen the patient needs to return immediately for re-evaluation. 20:07 ED course: Peacock flushed fine, bag was clogged, bag changed out, and now urine draining rn freely and no leakage. . 11/15 19:18 Order name: Urine Microscopic Only; Complete Time: 20: rn 11/15 19:18 Order name: Urine Culture rn 11/15 19:18 Order name: Urine Dipstick-Ancillary (obtain specimen); Complete Time: 20:25 rn 11/15 19:19 Order name: Misc. Order: irrigate peacock to clear possible obstruction; Complete Time: rn 19:37 11/15 19:39 Order name: Urine Dipstick-Ancillary; Complete Time: 20:07 EDMS Administered Medications: No medications were administered Disposition Summary: 11/15/21 20:09 Discharge Ordered Location: Home rn Problem: new rn Symptoms: have improved rn Condition: Stable rn Diagnosis - Other mechanical complication of indwelling urethral catheter, initial encounter rn - UTI/ Urinary tract infection, site not specified rn Followup: rn - With: Private Physician - When: As needed - Reason: Recheck today's complaints, Re-evaluation by your physician Discharge Instructions: - Discharge Summary Sheet rn - Indwelling Urinary Catheter Care, Adult rn - Urinary Tract Infection, Adult rn - Indwelling Urinary Catheter Insertion, Care After rn Forms: - Medication Reconciliation Form rn - Thank You Letter rn - 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
[2021-11-15 20:57] VITALS: TEMP 97.9
[2021-11-15 20:59] VITALS: BP 139/62; O2SAT 97
== END 2021-11-15 20:32 | disposition home or self-care (01) ==
LOC: ER 16:09
DX: T83.091A Other mechanical complication of indwelling urethral catheter, initial encounter (principal); N39.0 Urinary tract infection, site not specified; C60.9 Malignant neoplasm of penis, unspecified; I10 Essential (primary) hypertension; E11.9 Type 2 diabetes mellitus without complications; I50.9 Heart failure, unspecified; I48.91 Unspecified atrial fibrillation; Z88.2 Allergy status to sulfonamides; Z95.810 Presence of automatic (implantable) cardiac defibrillator
CPT/HCPCS: 81003; 81015; 87077; 87086; 87088; 87186; 99281

== ENCOUNTER 2022-04-07 12:56 | Inpatient (IN) | payer OTHER, MEDICARE ==
--- NOTE | 2022-04-07 13:25 | RAD REPORT ---
EXAM DESCRIPTION: RAD - Chest Single View - 04/07/2022 1:19 pm CLINICAL HISTORY: weakness Chest pain. COMPARISON: Chest Pa And Lat (2 Views) dated 07/03/2021; Chest Single View dated 10/15/2018; Chest Sin gle View dated 07/20/2018; Chest Single View dated 07/18/2018 FINDINGS: Portable technique limits examination quality. Calcified granuloma are present bilaterally. Mild interstitial pulmonary edema likely present. Trace pleural effusions. The heart is mildly enlarged with multilead pacer/defibrillator device. Sternotomy wires present. IMPRESSION: Mild CHF.
[2022-04-07 13:37] LABS: Urine Blood Negative (Negative); Urine Glucose Negative (Negative); Urine Protein Trace (Negative); Urine Specific Gravity 1.025 (1.005-1.030); Urine pH 5.5 (5.0-7.0)
[2022-04-07 13:40] LABS: Absolute Lymphocytes (CBC) 0.5 K/uL (0.7-4.9); Hematocrit 34.4 % (39.6-49.0); Lymphocytes % 7.2 % (15.3-44.8); MCV 98.6 fL (80-100); RBC Red Blood Cell Count 3.48 M/uL (4.33-5.43)
[2022-04-07 13:41] LABS: Protime INR 1.23
[2022-04-07 13:48] LABS: Urine Bacteria <20 /HPF (<20); Urine RBC None Seen /HPF (None Seen)
[2022-04-07 13:49] LABS: Albumin 2.9 g/dL (3.4-5.0); Bilirubin Total 0.6 mg/dL (0.2-1.0); Potassium 4.1 mmol/L (3.5-5.1); Protein, Total 7.7 g/dL (6.4-8.2)
[2022-04-07] MEDS ORDERED: ACETAMINOPHEN 500 MG TAB PO PRN (20:00)
[2022-04-08 05:33] LABS: Absolute Lymphocytes (CBC) 0.4 K/uL (0.7-4.9); Lymphocytes % 5.9 % (15.3-44.8); MPV 6.9 fL (7.6-11.3); RBC Red Blood Cell Count 3.16 M/uL (4.33-5.43)
[2022-04-08 05:56] LABS: Potassium 4.2 mmol/L (3.5-5.1)
--- NOTE | 2022-04-08 08:52 | EKG ---
Test Date: 2022-04-07 Test Time: 13:24:44 Core Finisher: ALP MEASUREMENT RESULTS: Intervals: Rate: 71 [place]: QRSD: 202 QT: 524 QTc: 569 [place]: P: [place]: QRS: 170 T: 19 INTERPRETIVE STATEMENTS: Suspect arm lead reversal, interpretation assumes no reversal Wide QRS rhythm with occasional premature ventricular complexes Right bundle branch block Anterolateral infarct, age undetermined Abnormal ECG Compared to ECG 04/07/2022 13:23:04 Ventricular premature complex(es) now present Myocardial infarct finding still present Electronically Signed On 04-08-22 08:47:16 CDT by Saul Montemayor
[2022-04-08 18:33] VITALS: BMI 21.6
[2022-04-08 20:26] LABS: Absolute Lymphocytes (CBC) 0.5 K/uL (0.7-4.9); Hematocrit 34.5 % (39.6-49.0); Lymphocytes % 6.2 % (15.3-44.8); MCV 98.8 fL (80-100); MPV 7.2 fL (7.6-11.3); RBC Red Blood Cell Count 3.49 M/uL (4.33-5.43)
[2022-04-08] MEDS ORDERED: D50W 25 GM/50 ML SYRINGE IV PRN (20:28)
[2022-04-08] MEDS ORDERED: GLUCAGON 1 MG/VIAL IM PRN (20:28)
--- NOTE | 2022-04-08 20:28 | P.HP ---
Certification for Inpatient Patient admitted to: Observation With expected LOS: <2 Midnights Patient will require the following post-hospital care: None Practitioner: I am a practitioner with admitting privileges, knowledge of patient current condition, hospital course, and medical plan of care. Services: Services provided to patient in accordance with Admission requirements found in Title 42 Section 412.3 of the Code of Federal Regulations Patient History Date of Service: 04/08/22 Reason for admission: Weakness History of Present Illness: 86-year-old male with history of CAD status post two-vessel CABG 1993, chronic systolic congestive heart failure, atrial fibrillation status post watchman procedure, COPD, rcr-hklpowr-qeklrmmhx diabetes, hypertension and hyperlipidemia with recurrent bladder infections presented to the emergency department on 04/07/2022 for generalized weakness his evaluation in the emergency department was unremarkable he did not have urinary tract infection but he and his family felt as if he was very weak and would not be unable to care for himself at home so he was admitted under observation. His primary care doctor is Dr. Willis but he has not been able to be reached by staff for that reason patient is going to be admitted to the hospitalist service. I went to examine the patient he states he is feeling well but still does feel relatively weak. He gets around at home with a walker his labs again were unremarkable today his urine culture was with no growth as well as blood cultures. Left patient evaluated by PT in the morning he can likely be discharged tomorrow if he does well with PT. Allergies Sulfa (Sulfonamide Antibiotics) [Sulfa(Sulfonamide Antibiotics)] Allergy (Mild, Verified 07/18/21 14:28) Nausea/Vomiting Home Medications: Aspirin 325 mg PO DAILY 04/08/22 Carvedilol [Coreg] 1 tab PO BID 04/08/22 Docusate [Colace Cap*] 1 cap PO BID 04/08/22 Glimepiride 1 mg PO DAILY 04/08/22 Lovastatin 40 mg PO BEDTIME 04/08/22 Omeprazole [Prilosec] 40 mg PO DAILY 04/08/22 Ranolazine [Ranexa] 500 mg PO BID 04/08/22 - Past Medical/Surgical History Has patient received pneumonia vaccine in the past: Yes Diabetic: Yes -: HTN -: DM -: TN x3 -: PNeumonia -: CAD -: cardiac watchman -: Hyperlipidemia -: CHF -: AFIB -: Cataract sx -: appy -: bilat shoulder sx -: defib/pacemaker placement -: Bypass 1993 -: hemorroidectomy Psychosocial/ Personal History: Patient lives at home, alone - Family History Mother -: Heart disease Father -: Other (see notes) Notes: stroke oldest brother -: Other (see notes) Notes: heart attack - Social History Smoking Status: Former smoker Alcohol use: No CD- Drugs: No Caffeine use: Yes Place of Residence: Home Review of Systems 10-point ROS is otherwise unremarkable General: Weakness Physical Examination - Vital Signs Temperature: 97.5 F Blood Pressure: 116/52 Pulse: 69 Respirations: 22 Pulse Ox (%): 96 - Physical Exam General: Alert, In no apparent distress, Oriented x3 HEENT: Atraumatic, PERRLA, Mucous membr. moist/pink, EOMI, Sclerae nonicteric Neck: Supple, 2+ carotid pulse no bruit, No LAD, Without JVD or thyroid abnormality Respiratory: Clear to auscultation bilaterally, Normal air movement Cardiovascular: Regular rate/rhythm, Normal S1 S2 Gastrointestinal: Normal bowel sounds, No tenderness Musculoskeletal: No tenderness Integumentary: No rashes Neurological: Normal gait, Normal speech, Normal strength at 5/5 x4 extr, Normal tone, Normal affect Lymphatics: No axilla or inguinal lymphadenopathy - Studies Laboratory Data (last 24 hrs) 04/08/22 05:15: WBC 7.6 D, Hgb 10.4 L, Hct 31.0 L, Plt Count 179 04/08/22 05:01: Sodium 142, Potassium 4.2, BUN 28 H, Creatinine 0.99, Glucose 131 H Assessment and Plan - Plan Assessment: Generalized weakness Atrial fibrillation status post watchman procedure CAD status post CABG Olx-fcedcyf-dwokhkppf diabetes Hypertension Hyperlipidemia Plan: Generalized weakness: Unclear etiology, patient states he is feeling somewhat better since his admission with patient valuated by physical therapy, he reports he uses a walker at home. His urine and blood cultures were negative labs are unremarkable medically stable can likely be discharged tomorrow. Atrial fibrillation status post watchman procedure: Monitor on telemetry, patient no longer on anticoagulation. He is rate controlled. CAD status post CABG: Continue home medications, stable denies any chest pain or shortness of breath. Eei-urzsash-iafkcexwm diabetes: ACH S Accu-Chek, mild sliding scale insulin. Hypertension: Home medications continued Hyperlipidemia:Home medications continued DVT PPX: Lovenox Code status: Full Discharge Plan: Home Plan to discharge in: 24 Hours - Advance Directives Does patient have a Living Will: No Does patient have a Durable POA for Healthcare: Yes - Code Status/Comfort Care Code Status Assessed: Yes (Full code) Critical Care: No Time Spent Managing Pts Care (In Minutes): 55
[2022-04-08] MEDS: Lovastatin [Lovastatin] 40 MG Tablet PO SCH (20:52)
[2022-04-08] MEDS: RANOLAZINE 500 MG PO SCH (20:52)
[2022-04-08] MEDS: INSULIN -REGULAR HUMAN 50 UNIT/0.5 ML ML SQ SCH (20:52)
[2022-04-08] MEDS ORDERED: D10W 125 ML IV PRN (21:18)
[2022-04-08] MEDS: DOCUSATE NA 100 MG CAP PO SCH (21:19)
[2022-04-08] MEDS: carvediloL 3.125 MG TAB PO SCH (21:19)
[2022-04-09] MEDS ORDERED: FUROSEMIDE 40 MG/4 ML VIAL IV ONE (02:32)
[2022-04-09 02:42] LABS: Arterial Blood Carboxyhemoglob 1.3 % (0-1.5); Blood Gas Oxyhemoglobin 87.8 % (94-97)
[2022-04-09 03:28] LABS: Troponin High Sensitivity 37.6 pg/mL (<58.9)
[2022-04-09 04:12] LABS: Albumin 2.9 g/dL (3.4-5.0); Potassium 4.7 mmol/L (3.5-5.1); Protein, Total 8.3 g/dL (6.4-8.2)
--- NOTE | 2022-04-09 05:54 | P.PN ---
Date of Service: 04/09/22 Subjective: hypoxic / short of breath overnight breathing more comfortably this morning desaturated after getting up to go to bathroom ROS: 10 point ROS as noted above, otherwise negative Physical exam GEN: Alert, oriented HEENT: Normal conjunctiva, sclera anicteric CV: Regular rate and rhythm, trace b/l pedal edema Pulm: labored respirations on 2L NC ABD: Soft, nontender, nondistended Neuro: Normal speech, normal affect Problem List Acute hypoxemic respiratory failure secondary to acute on chronic CHF exacerbation (HFrEF) Generalized weakness Atrial fibrillation status post watchman procedure CAD s/p CABG Idb-papilep-uydrlkkvd diabetes Hypertension Hyperlipidemia unclear etiology of patient's generalized weakness / not feeling well at home infectious etiology ruled out afib rate controlled overnight became hypoxic/dyspneic, improving after lasix CXR with b/l opacities, concern for pulm edema given patient's symptoms pre-admission, will retest for covid received IVF from EMS, possibly put patient into acute CHF r/o PE check CTA echo ordered, last EF many years ago: 30-35% patient not on diuretics, doesn't typically get symptomatic continue home meds; sliding scale insulin continue IV lasix VTE: lovenox Code: full Dispo: home, ~48hrs Time Spent Managing Pts Care (In Minutes): 55
[2022-04-09] MEDS: ENOXAPARIN 40 MG/0.4 ML SQ SCH (08:38)
[2022-04-09] MEDS: FUROSEMIDE 20 MG/ 2ML VIAL IV SCH ×2 (08:38→17:25)
[2022-04-09] MEDS: carvediloL 3.125 MG TAB PO SCH ×2 (08:38→20:49)
[2022-04-09] MEDS: ASPIRIN 325 MG TAB PO SCH (08:39)
[2022-04-09] MEDS: DOCUSATE NA 100 MG CAP PO SCH ×2 (08:39→20:49)
[2022-04-09] MEDS: INSULIN -REGULAR HUMAN 50 UNIT/0.5 ML ML SQ SCH ×4 (08:44→20:50)
[2022-04-09] MEDS: RANOLAZINE 500 MG PO SCH ×2 (08:53→20:50)
[2022-04-09] MEDS ORDERED: Omeprazole [Prilosec] 40 MG Capsule.Dr PO SCH (09:00)
--- NOTE | 2022-04-09 09:35 | ER ---
Nurse's Notes [facility] Name: Екатерина Hare Age: 86 yrs Sex: Male : 1935 Arrival Date: 04/07/2022 Time: 13:02 Bed 4 Private MD: Diagnosis: Muscle weakness (generalized);Dehydration Presentation: 04/07 13:02 Chief complaint: Patient states: he feels like both legs have been getting weak over ap3 the last 2 days. patient also reports having burning sensation with urination and states he has a hx of UTI. Coronavirus screen: At this time, the client does not indicate any symptoms associated with coronavirus-19. Ebola Screen: No symptoms or risks identified at this time. Initial Sepsis Screen: Does the patient meet any 2 criteria? No. Patient's initial sepsis screen is negative. Does the patient have a suspected source of infection? Yes: Dysuria/Frequency/Urgency/UTI. Risk Assessment: Do you want to hurt yourself or someone else? Patient reports no desire to harm self or others. Onset of symptoms was April 06, 2022. Care prior to arrival: Medication(s) given: Normal saline infusion, 1000 mL, IV initiated. 20 GA, in the right forearm. 13:02 Method Of Arrival: EMS: [facility] ap3 13:02 Acuity: NICOLE 3 ap3 Triage Assessment: 13:06 General: Appears in no apparent distress. Behavior is calm, cooperative, appropriate ap3 for age, Reports. Pain: Denies pain. Neuro: Reports weakness in right leg and left leg. 13:08 Cardiovascular: Patient's skin is warm and dry. Respiratory: Airway is patent ap3 Respiratory effort is even, unlabored. : Reports pain with urination, urgency. Historical: - Allergies: 13:08 Sulfa (Sulfonamide Antibiotics); ap3 - PMHx: 13:08 Atrial Fib; CAD; cardiomyopathy; CHF; defibrilllator; Diabetes - NIDDM; Hyperlipidemia; ap3 Hypertension; Myocardial infarction; Pacemaker; Penile Cancer; Pneumonia; - PSHx: 13:08 partial penectomy; ap3 - Immunization history:: Client reports receiving the 2nd dose of the Covid vaccine. - Social history:: Smoking status: Patient denies any tobacco usage or history of. - Family history:: not pertinent. - Hospitalizations: : No recent hospitalization is reported. Screenin:09 Abuse screen: Denies threats or abuse. Nutritional screening: No deficits noted. ap3 Tuberculosis screening: No symptoms or risk factors identified. Fall Risk Fall in past 12 months (25 points). Secondary diagnosis (15 points) reports weakness. IV access (20 points). Ambulatory Aid- None/Bed Rest/Nurse Assist (0 pts). Gait- Weak (10 pts.). Mental Status- Oriented to own ability (0 pts). Total Will Fall Scale indicates Low Risk Score (25-44 pts). Fall prevention measures have been instituted. Side Rails Up X 2 Placed close to Nursing Station Frequent Obs/Assesments occuring Family Present and informed to notify staff if they need to leave bedside As available Patient and Family Educated on Fall Prevention Program and strategies. Assessment: 13:11 Reassessment: FSBS= 174. ap3 14:00 Reassessment: Patient and/or family updated on plan of care and expected duration. Pain ap3 level reassessed. Patient is alert, oriented x 3, equal unlabored respirations, skin warm/dry/pink. 15:14 Reassessment: Patient appears in no apparent distress at this time. Patient and/or vg1 family updated on plan of care and expected duration. Pain level reassessed. Patient is alert, oriented x 3, equal unlabored respirations, skin warm/dry/pink. 16:10 Reassessment: Patient and/or family updated on plan of care and expected duration. Pain ap3 level reassessed. Patient is alert, oriented x 3, equal unlabored respirations, skin warm/dry/pink. General: Behavior is calm, cooperative. Neuro: Level of Consciousness is awake, alert, obeys commands, Oriented to person, place, time, situation. 16:21 Reassessment: nurse assisted patient to standing position. patient walked in place ap3 without reports of dizziness. patients reports feeling back to his baseline. 17:23 Reassessment: Patient and/or family updated on plan of care and expected duration. Pain ap3 level reassessed. Patient is alert, oriented x 3, equal unlabored respirations, skin warm/dry/pink. 18:50 Reassessment: Patient and/or family updated on plan of care and expected duration. Pain ap3 level reassessed. Patient is alert, oriented x 3, equal unlabored respirations, skin warm/dry/pink. 19:27 Reassessment: Patient appears in no apparent distress at this time. Reassessment: lp1 Patient and daughter aware of pending admission. Neuro: Level of Consciousness is awake, alert, obeys commands, Oriented to person, place, situation, Reports weakness in right leg and left leg. Cardiovascular: Patient's skin is warm and dry. Respiratory: Respiratory effort is even, unlabored. Derm: Skin is fragile, is thin, Skin is dry, Skin is normal. Musculoskeletal: No deficits noted. Vital Signs: 13:02 BP 104 / 90; Pulse 70; Resp 18; Temp 98.9; Pulse Ox 100% ; Weight 70.31 kg; Height 5 ap3 ft. 11 in. (180.34 cm); 13:59 BP 109 / 86; Pulse 70; Pulse Ox 99% on R/A; ap3 15:00 BP 122 / 64; Pulse 70; Resp 20; Pulse Ox 98% on R/A; vg1 16:11 BP 129 / 67; Pulse 70; Pulse Ox 98% on R/A; ap3 17:23 BP 131 / 57; Pulse 76; Pulse Ox 99% on R/A; ap3 18:49 BP 142 / 71; Pulse 70; Pulse Ox 97% ; ap3 19:27 BP 144 / 71; Pulse 77; Resp 22; Temp 97.5(O); Pulse Ox 96% on R/A; lp1 20:31 BP 139 / 77; Pulse 75; Resp 24; Pulse Ox 94% on R/A; lp1 13:02 Body Mass Index 21.62 (70.31 kg, 180.34 cm) ap3 ED Course: 13:02 Patient arrived in ED. rn 13:02 Aj Sultana MD is Attending Physician. rn 13:02 Gillian Padgett RN is Primary Nurse. ap3 13:04 Triage completed. ap3 13:09 Arm band placed on left wrist. ap3 13:09 Patient has correct armband on for positive identification. Bed in low position. Call ap3 light in reach. Side rails up X2. surveillance monitor on. Pulse ox on. NIBP on. Door closed. Noise minimized. 13:10 Maintain EMS IV. Dressing intact. Good blood return noted. Site clean \T\ dry. Gauge \T\ ap 3 site: 20g right FA. 13:21 Chest Single View XRAY In Process Unspecified. EDMS 13:38 Urine Culture Sent. tp1 13:38 Urine Microscopic Only Sent. tp1 13:38 Urine collected: clean catch specimen, clear. tp1 14:00 Pt visited by daughter. ap3 14:33 COVID swab sent to lab. vg1 16:34 Deanna Willis MD is Hospitalizing Provider. rn 19:17 Primary Nurse role handed off by Gillian Padgett RN mw2 19:28 No provider procedures requiring assistance completed. Patient admitted, IV remains in lp1 place. 19:39 Gin Dean, RN is Primary Nurse. lp1 Administered Medications: 13:27 Drug: NS 0.9% 250 ml Route: IV; Rate: bolus; Site: right forearm; ap3 14:15 Follow up: IV Status: Infusion continued; IV Intake: 250ml ap3 Medication: 13:09 VIS not applicable for this client. ap3 Intake: 14:15 IV: 250ml; Total: 250ml. ap3 Outcome: 16:27 Discharge ordered by MD. rn 16:34 Decision to Hospitalize by Provider. rn 19:53 Admitted to Med/surg room 214, with chart, Report called to REUBEN Velasquez lp1 19:53 Condition: stable 19:53 Instructed on the need for admit. 20:31 Patient left the ED. lp1 Signatures: Dispatcher [employer] EDMS Aj Sultana MD MD rn Pena, Laura, REUBEN RN lp1 Gillian Padgett RN RN ap3 Tj Escoto mw2 Nelly Johnson RN RN vg1 Ivette Yun, RN RN tp1 Corrections: (The following items were deleted from the chart) 13:09 13:06 Neuro: Reports weakness ap3 ap3
--- NOTE | 2022-04-09 09:35 | EDPHYS ---
Physician Documentation [facility] Name: Екатерина Hare Age: 86 yrs Sex: Male : 1935 Arrival Date: 04/07/2022 Time: 13:02 Bed 4 Private MD: ED Physician Aj Sultana HPI: 04/07 13:18 This 86 yrs old Male presents to ER via EMS with complaints of General Weakness. rn 13:18 Pt reports generalized weakness for 2 days, feels dysuria and like he has another UTI. rn No fever. No vomiting/diarrhea/abd pain. No chest pain. No cough. No sick contacts. . Onset: The symptoms/episode began/occurred 2 day(s) ago. Severity of symptoms: At their worst the symptoms were moderate in the emergency department the symptoms are unchanged. The patient has experienced similar episodes in the past. The patient has not recently seen a physician. Historical: - Allergies: 13:08 Sulfa (Sulfonamide Antibiotics); ap3 - PMHx: 13:08 Atrial Fib; CAD; cardiomyopathy; CHF; defibrilllator; Diabetes - NIDDM; Hyperlipidemia; ap3 Hypertension; Myocardial infarction; Pacemaker; Penile Cancer; Pneumonia; - PSHx: 13:08 partial penectomy; ap3 - Immunization history:: Client reports receiving the 2nd dose of the Covid vaccine. - Social history:: Smoking status: Patient denies any tobacco usage or history of. - Family history:: not pertinent. - Hospitalizations: : No recent hospitalization is reported. ROS: 13:18 Constitutional: Negative for fever, chills, and weight loss, Eyes: Negative for injury, rn pain, redness, and discharge, Neck: Negative for injury, pain, and swelling, Cardiovascular: Negative for chest pain, palpitations, and edema, Respiratory: Negative for shortness of breath, cough, wheezing, and pleuritic chest pain, Abdomen/GI: Negative for abdominal pain, nausea, vomiting, diarrhea, and constipation, : + dysuria MS/Extremity: Negative for injury and deformity, Skin: Negative for injury, rash, and discoloration, Neuro: Negative for headache, numbness, tingling, and seizure. Exam: 13:18 Constitutional: This is a well developed, well nourished patient who is awake, alert, rn and in no acute distress. Head/Face: Normocephalic, atraumatic. Eyes: Periorbital areas with no swelling, redness, or edema. ENT: dry MM Cardiovascular: Regular rate and rhythm. No pulse deficits. Respiratory: No increased work of breathing, no retractions or nasal flaring. Abdomen/GI: Soft, non-tender Skin: Warm, dry MS/ Extremity: Pulses equal, no cyanosis Neuro: Awake and alert, GCS 15, oriented to person, place, time, and situation. Cranial nerves II-XII grossly intact. Motor strength 4/5 in all extremities. Sensory grossly intact. 16:11 ECG was reviewed by the Attending Physician. rn Vital Signs: 13:02 BP 104 / 90; Pulse 70; Resp 18; Temp 98.9; Pulse Ox 100% ; Weight 70.31 kg; Height 5 ap3 ft. 11 in. (180.34 cm); 13:59 BP 109 / 86; Pulse 70; Pulse Ox 99% on R/A; ap3 15:00 BP 122 / 64; Pulse 70; Resp 20; Pulse Ox 98% on R/A; vg1 16:11 BP 129 / 67; Pulse 70; Pulse Ox 98% on R/A; ap3 17:23 BP 131 / 57; Pulse 76; Pulse Ox 99% on R/A; ap3 18:49 BP 142 / 71; Pulse 70; Pulse Ox 97% ; ap3 19:27 BP 144 / 71; Pulse 77; Resp 22; Temp 97.5(O); Pulse Ox 96% on R/A; lp1 20:31 BP 139 / 77; Pulse 75; Resp 24; Pulse Ox 94% on R/A; lp1 13:02 Body Mass Index 21.62 (70.31 kg, 180.34 cm) ap3 MDM: 13:02 Patient medically screened. rn 16:25 Differential Diagnosis COVID, dehydration, viral illness, UTI. Data reviewed: vital rn signs, nurses notes, lab test result(s), EKG, radiologic studies, plain films, and as a result, I will discharge patient. Counseling: I had a detailed discussion with the patient and/or guardian regarding: the historical points, exam findings, and any diagnostic results supporting the discharge/admit diagnosis, lab results, radiology results, the need for outpatient follow up, to return to the emergency department if symptoms worsen or persist or if there are any questions or concerns that arise at home. Response to treatment: the patient's symptoms have markedly improved after treatment, and as a result, I will discharge patient. Special discussion: I discussed with the patient/guardian in detail that at this point there is no indication for admission to the hospital. It is understood, however, that if the symptoms persist or worsen the patient needs to return immediately for re-evaluation. ED course: NO acute findings on workup, UA clean, micro neg as well. Stable vitals. Normal neuro exam. COVID neg. Pt states feels better and would like to go home. Family member still reports feeling weak and patient reports would feel better if admitted overnight. . 04/07 13:02 Order name: Blood Culture Adult (2); Complete Time: 20:24 rn 04/07 13:02 Order name: CBC with Diff; Complete Time: 13:55 rn 04/07 13:02 Order name: CMP; Complete Time: 13:55 rn 04/07 13:02 Order name: Lactate; Complete Time: 13:55 rn 04/07 13:02 Order name: Protime (+inr); Complete Time: 13:55 rn 04/07 13:02 Order name: Ptt, Activated; Complete Time: 13:55 rn 04/07 13:02 Order name: Urine Culture; Complete Time: 20:24 rn 04/07 13:02 Order name: Urine Microscopic Only; Complete Time: 13:55 rn 04/07 13:02 Order name: Chest Single View XRAY; Complete Time: 13:39 rn 04/07 13:02 Order name: Accucheck; Complete Time: 13:10 rn 04/07 13:02 Order name: Cardiac monitoring; Complete Time: 13:10 rn 04/07 13:37 Order name: Urine Dipstick-Ancillary; Complete Time: 13:39 EDMS 04/07 13:57 Order name: SARS-COV-2 RT PCR (Document "Date of Onset" if Symptomatic); Complete Time: rn 16:04/07 13:02 Order name: EKG - Nurse/Tech; Complete Time: 13:26 rn 04/07 13:02 Order name: IV Saline Lock - Large Bore; Complete Time: 13:10 rn 04/07 13:02 Order name: Labs collected and sent; Complete Time: 13:26 rn 04/07 13:02 Order name: O2 Per Protocol; Complete Time: 13:08 rn 04/07 13:02 Order name: O2 Sat Monitoring; Complete Time: 13:08 rn 04/07 13:02 Order name: Urine Dipstick-Ancillary (obtain specimen); Complete Time: 13:46 rn EC:11 Rate is 70 beats/min. Rhythm is regular. Right axis deviation noted. QRS interval is rn prolonged at 204 msec. QT interval is normal. No Q waves. T waves are Normal. No ST changes noted. Clinical impression: No change from prior ECG. Interpreted by me. Reviewed by me. Administered Medications: : Drug: NS 0.9% 250 ml Route: IV; Rate: bolus; Site: right forearm; ap3 14:15 Follow up: IV Status: Infusion continued; IV Intake: 250ml ap3 Disposition Summary: 04/07/22 16:34 Hospitalization Ordered Hospitalization Status: Observation rn Provider: Deanna Willis rn Location: Telemetry/MedSurg (observation)(04/07/22 16:34) rn Condition: Stable(04/07/22 16:34) rn Problem: new(04/07/22 16:34) rn Symptoms: have improved(04/07/22 16:34) rn Bed/Room Type: Standard rn Room Assignment: 214(04/07/22 18:36) bd Diagnosis - Muscle weakness (generalized)(04/07/22 16:34) rn - Dehydration(04/07/22 16:34) rn Forms: - Medication Reconciliation Form rn - SBAR form rn Signatures: Dispatcher [employer] EDMS Carmela Coleman Roman, MD MD rn Attema, Lee, [id number] Gillian Padgett RN RN ap3 Corrections: (The following items were deleted from the chart) 16:34 16:25 ED course: NO acute findings on workup, UA clean, micro neg as well. Stable rn vitals. Much better after fluids and ambulatory in room. Normal neuro exam. COVID neg. Pt states feels better and would like to go home. . rn 16:34 16:27 Home rn rn 16:34 16:27 new rn rn 16:34 16:27 have improved rn rn 16:34 16:27 Stable rn rn 16:34 16:27 Muscle weakness (generalized) rn rn 16:34 16:27 Dehydration rn rn 18:36 16:34 rn bd
--- NOTE | 2022-04-09 10:31 | RAD REPORT ---
EXAM DESCRIPTION: RAD - Chest Single View - 04/09/2022 2:38 am CLINICAL HISTORY: 86 years Male, dyspnea, hypoxia COMPARISON: None. TECHNIQUE: Single portable x-ray view of the chest performed on 04/09/2022 at 2:33 AM FINDINGS: The lungs are well expanded. There is moderate diffuse bilateral airspace disease which ma y be due to pulmonary edema, multifocal pneumonia or ARDS. There is volume loss in the left lung base which may be due to the presence of a pleural effusion and/or atelectasis. A trace right pleural eff usion is not excluded. There is no evidence of a pneumothorax. Scattered calcified granulomata are castrejon spected. The cardiac silhouette is mildly prominent and may be slightly accentuated by the portable technique. There are remote postsurgical changes of the mediastinum. The mediastinal contours are normal. No acute osseous abnormality is identified. There are remote postsurgical changes of the right dwain l head. No acute soft tissue abnormalities are seen. Lines and tubes: There is a left subclavian multilead pacemaker. There is a questionable partial de fect in one of the proximal pacemaker leads extending into the right ventricle. Free air: None IMPRESSION: 1. Moderate diffuse bilateral airspace disease which may be due to pulmonary edema, mu ltifocal pneumonia or ARDS. 2. Volume loss in the left lung base which may be due to the presence of a pleural effusion and/or atelectasis. A trace right pleural effusion is not excluded. 3. Remote median sternotomy. 4. Questionable partial defect in one of the proximal pacemaker leads which extends into the right ventricle. Electronically signed by: Lorraine Lion DO 04/09/2022 3:30 AM CDT Due to temporary technical issues with the PACS/Fluency reporting system, reports are being signed by the in house radiologists without review as a courtesy to insure prompt reporting. The interpreting radiologist is fully responsible for the content of the report.
--- NOTE | 2022-04-09 12:57 | EKG ---
Test Date: 2022-04-09 Test Time: 02:58:12 Swimmer: RT-O MEASUREMENT RESULTS: Intervals: Rate: 75 CO: QRSD: 116 QT: 408 QTc: 455 [place]: P: CO: QRS: -50 T: 145 INTERPRETIVE STATEMENTS: Atrial fibrillation with premature ventricular or aberrantly conducted complexes Left axis deviation Incomplete right bundle branch block ST & T wave abnormality, consider lateral ischemia or digitalis effect Abnormal ECG Compared to ECG 04/07/2022 13:24:44 Left-axis deviation now present Incomplete right bundle-branch block now present ST (T wave) deviation now present Possible ischemia now present Uncertain supraventricular rhythm no longer present Right bundle-branch block no longer present Myocardial infarct finding no longer present Electronically Signed On 04-09-22 12:56:33 CDT by Saul Montemayor
--- NOTE | 2022-04-09 14:37 | RAD REPORT ---
EXAM DESCRIPTION: CT - Chest For Pe Angio - 04/09/2022 2:20 pm CLINICAL HISTORY: r/p PE, eval b/l opacities COMPARISON: CTANGIO CHEST FOR PE dated 11/30/2010; Chest Single View dated 04/09/2022 TECHNIQUE: Dynamically enhanced 3 mm thick images of the chest were obtained during administration o f approximately 150mL Isovue 370 IV contrast. Coronal and oblique MIP reconstruction images were gene rated and reviewed. Exam utilizes a protocol to evaluate the pulmonary arterial tree. All CT scans are performed using dose optimization technique as appropriate and may include automated exposure control or mA/KV adjustment according to patient size. FINDINGS: No pulmonary emboli are identified. No aortic dilatation or displaced calcifications. PE protocol study does not opacify the aorta on thi s examination. Cardiomegaly is present without pericardial effusion. Left atrial appendage exclusion device is in place. CABG surgical changes are present. Moderate bilateral pleural effusions are present with partial atelectasis of each lower lobe and depe ndent portions of each upper lobe. Scattered bilateral airspace opacities are present in the lung par enchyma. No pneumothorax. No pleural based mass. Numerous granulomatous type calcifications are prese nt in the bilateral ana and several are scattered in the lung parenchyma. Patient has a few noncalci fied pulmonary nodules. These are under 10 mm in size. Interstitial thickening is present. No suspicious mediastinal or hilar mass lesion. No chest wall masses or abnormal axillary lymphadenop athy. Left subclavian pacemaker in place. IMPRESSION: No pulmonary emboli identified. Moderate bilateral pleural effusions with diffuse interstitial thickening and scattered alveolar opac ities throughout the lung webb. There is cardiomegaly. Pulmonary edema from CHF/volume overload would be favored. Bilateral pneumonia is possible but lesser in likelihood. Likewise, patient history is not likely sufficient for ARDS diagnosis. Patient has several sub centimeter noncalcified pulmonary nodules with many more densely calcified pu lmonary nodules and hilar calcifications. This is probably all granulomatous disease.
[2022-04-09] MEDS: OMEPRAZOLE 20 MG PO SCH (15:38)
[2022-04-09] MEDS: Lovastatin [Lovastatin] 40 MG Tablet PO SCH (20:49)
[2022-04-10 05:40] LABS: Absolute Lymphocytes (CBC) 0.7 K/uL (0.7-4.9); Hematocrit 32.7 % (39.6-49.0); MPV 7.1 fL (7.6-11.3); RBC Red Blood Cell Count 3.31 M/uL (4.33-5.43)
[2022-04-10 05:56] LABS: Albumin 2.5 g/dL (3.4-5.0); Magnesium 1.9 mg/dL (1.8-2.4); Potassium 3.4 mmol/L (3.5-5.1); Protein, Total 7.3 g/dL (6.4-8.2)
--- NOTE | 2022-04-10 06:17 | P.PN ---
Date of Service: 04/10/22 Subjective: improving, breathing more comfortably, ambulated with PT still requiring O2 no new complaints/symptoms ROS: 10 point ROS as noted above, otherwise negative Physical exam GEN: Alert, oriented HEENT: Normal conjunctiva, sclera anicteric CV: Regular rate and rhythm, trace b/l pedal edema Pulm: non labored respirations on 2L NC ABD: Soft, nontender, nondistended Neuro: Normal speech, normal affect Problem List Acute hypoxemic respiratory failure secondary to acute on chronic CHF exacerbation (HFrEF) Generalized weakness Atrial fibrillation status post watchman procedure CAD s/p CABG Usi-xrfrxdb-lhyarcvys diabetes Hypertension Hyperlipidemia unclear etiology of patient's generalized weakness / not feeling well at home, suspect CHF infectious etiology ruled out afib rate controlled overnight after admission became hypoxic/dyspneic, improving with diuresis repeat covid negative; CTA negative for PE, noted b/l effusions, pulm edema echo ordered, last EF many years ago: 30-35% patient not on diuretics at home, doesn't typically get symptomatic cardiology consulted, trop trended continue home meds; sliding scale insulin continue IV lasix monitor i/o's VTE: lovenox Code: full Dispo: home, ~24-48hrs may need home O2 Time Spent Managing Pts Care (In Minutes): 35
[2022-04-10] MEDS: INSULIN -REGULAR HUMAN 50 UNIT/0.5 ML ML SQ SCH ×4 (07:30→20:32)
--- NOTE | 2022-04-10 07:32 | EKG ---
Test Date: 2022-04-09 Test Time: 02:51:11 Assistant Clinical Nurse Manager: CINDY MEASUREMENT RESULTS: Intervals: Rate: 81 IA: QRSD: 126 QT: 410 QTc: 476 Justin: P: IA: QRS: -54 T: 124 INTERPRETIVE STATEMENTS: Atrial fibrillation with premature ventricular or aberrantly conducted complexes Left axis deviation Nonspecific intraventricular block T wave abnormality, consider lateral ischemia or digitalis effect Abnormal ECG Compared to ECG 04/07/2022 13:24:44 Left-axis deviation now present T-wave abnormality now present Possible ischemia now present Uncertain supraventricular rhythm no longer present Right bundle-branch block no longer present Myocardial infarct finding no longer present Electronically Signed On 04-10-22 07:31:02 CDT by Saul Montemayor
--- NOTE | 2022-04-10 08:46 | RAD REPORT ---
EXAM DESCRIPTION: RAD - Chest Single View - 04/10/2022 6:12 am CLINICAL HISTORY: SOB Chest pain. COMPARISON: Chest Single View dated 04/09/2022; Chest Single View dated 04/07/2022; Chest Pa And Lat (2 Views) dated 07/03/2021; Chest Single View dated 10/15/2018 FINDINGS: Portable technique limits examination quality. Since the prior examination, bilateral pulmonary opacities have moderately improved. The heart is mod erately enlarged in size. Multi lead pacer/defibrillator device.Sternotomy wires. IMPRESSION: Moderate improvement in lung aeration is seen since yesterday's study.
[2022-04-10] MEDS: FUROSEMIDE 20 MG/ 2ML VIAL IV SCH ×2 (09:06→16:19)
[2022-04-10] MEDS: ENOXAPARIN 40 MG/0.4 ML SQ SCH (09:06)
[2022-04-10] MEDS: carvediloL 3.125 MG TAB PO SCH ×2 (09:06→20:20)
[2022-04-10] MEDS: ASPIRIN 325 MG TAB PO SCH (09:06)
[2022-04-10] MEDS: DOCUSATE NA 100 MG CAP PO SCH ×2 (09:06→20:20)
[2022-04-10] MEDS: RANOLAZINE 500 MG PO SCH ×2 (09:07→20:21)
[2022-04-10] MEDS: OMEPRAZOLE 20 MG PO SCH (09:07)
[2022-04-10] MEDS: Lovastatin [Lovastatin] 40 MG Tablet PO SCH (20:21)
--- NOTE | 2022-04-11 06:12 | P.PN ---
Date of Service: 04/11/22 Subjective: ROS: 10 point ROS as noted above, otherwise negative Physical exam GEN: Alert, oriented HEENT: Normal conjunctiva, sclera anicteric CV: Regular rate and rhythm, trace b/l pedal edema Pulm: non labored respirations on 2L NC ABD: Soft, nontender, nondistended Neuro: Normal speech, normal affect Problem List Acute hypoxemic respiratory failure secondary to acute on chronic CHF exacerbation (HFrEF) Generalized weakness Atrial fibrillation status post watchman procedure CAD s/p CABG Rig-pgxfjue-xixjwmqiv diabetes Hypertension Hyperlipidemia unclear etiology of patient's generalized weakness / not feeling well at home, suspect CHF infectious etiology ruled out afib rate controlled overnight after admission became hypoxic/dyspneic, improving with diuresis repeat covid negative; CTA negative for PE, noted b/l effusions, pulm edema echo ordered, last EF many years ago: 30-35% patient not on diuretics at home, doesn't typically get symptomatic cardiology consulted, trop trended continue home meds; sliding scale insulin continue IV lasix monitor i/o's VTE: lovenox Code: full Dispo: home, ~24-48hrs may need home O2 Time Spent Managing Pts Care (In Minutes): 35
[2022-04-11 06:44] LABS: Potassium 3.6 mmol/L (3.5-5.1)
[2022-04-11] MEDS: INSULIN -REGULAR HUMAN 50 UNIT/0.5 ML ML SQ SCH ×3 (07:30→16:20)
[2022-04-11] MEDS: DOCUSATE NA 100 MG CAP PO SCH (11:03)
[2022-04-11] MEDS: carvediloL 3.125 MG TAB PO SCH (11:03)
[2022-04-11] MEDS: FUROSEMIDE 20 MG/ 2ML VIAL IV SCH ×2 (11:03→16:27)
[2022-04-11] MEDS: ASPIRIN 325 MG TAB PO SCH (11:03)
[2022-04-11] MEDS: ENOXAPARIN 40 MG/0.4 ML SQ SCH (11:03)
[2022-04-11] MEDS: RANOLAZINE 500 MG PO SCH (11:04)
[2022-04-11] MEDS: OMEPRAZOLE 20 MG PO SCH (11:04)
[2022-04-11 12:27] VITALS: BP 119/60; TEMP 97.2
--- NOTE | 2022-04-11 13:24 | PN ---
Date of Progress Note: 04/10/2022 Subjective: Mr. Hare was admitted for urinary catheterization problems, chronic acute systolic con gestive heart failure status post defibrillator pacemaker. Objective: Vital Signs: On 04/10/2022, his vital signs were stable. He was afebrile. Blood pressu re was 114/56. He was in a paced rhythm. His glucose was 141, O2 saturation was 97% on 3 L. Diagnostic Data: His laboratory data were unremarkable. Troponin was mildly elevated, so was his C- reactive protein. Plan: He is presently on Lovenox low dose Lasix. He is on insulin. He is on Ranexa and carvedilol, Prilosec, and aspirin. I do not see any need to change his medical therapy. At this point, there i s an echocardiogram pending. We will see what that shows before making further decision but I agree with his present regimen. If his ejection fraction is low, we should consider the use of PATRICIA inhibit or or even Entresto. He has a GFR of 69 and should be able to handle that, but we will await for the echo. I will discuss the case further with Dr. Sultana. VERA/DIAMONDL Voice ID: [id number] Report ID: [id number]
--- NOTE | 2022-04-11 13:48 | CON ---
Date of Consultation: 04/09/2022 Reason For Consultation: Congestive heart failure. History Of Present Illness: Mr. Hare actually is an 86-year-old who came in complaining of urinary catheter problem, was found to be in CHF by x-ray. He complained of weakness, no chest pain. No na usea, vomiting, diaphoresis, PND, orthopnea, pedal edema, palpitations, syncope. Denied any fever or chills. Past Medical History: Include atrial fibrillation, coronary artery disease, congestive heart failure , status post pacemaker and AICD, diabetes, hypertension, dyslipidemia. Allergies: SULFA. Medications: Presently include lovastatin, glimepiride, aspirin, Coreg, Prinivil, and Ranexa. Review of Systems: Negative. Social History: Negative. Family History: Noncontributory. Physical Examination: General: He was noted to be in no acute distress. He was in a paced rhythm. HEENT: Negative. Neck: Supple. No JVD or bruit. Chest: Clear. Cardiac: Revealed irregularly irregular rhythm and rate without any murmurs, gallops, or rubs. Abdomen: Benign. Extremities: Revealed no clubbing, cyanosis, or edema. Diagnostic Data: Showed paced rhythm on the EKG. Chest x-ray showed mild failure. Glucose 189, BNP 8503. His pO2 was 68, pH of 7.31 and pCO2 49. Impression And Plan: 1.Acute on chronic systolic congestive heart failure, status post pacemaker and defibrillator. Echo cardiogram is pending. 2.Atrial fibrillation. Paced rhythm. On beta-blockers and aspirin. 3.Coronary artery disease. 4.Diabetes, poorly controlled. 5.Hypertension. 6.Dyslipidemia. I think Mr. Hare needs to be gently diuresed. Obtain an echocardiogram. Continue other medication s. Not a good candidate for anticoagulation. We will continue to follow him. NB/MODL Voice ID: [id number] Report ID: [id number]
--- NOTE | 2022-04-11 15:01 | ECHO ---
HEIGHT: 5 ft 11 in WEIGHT: 155 lb 0 oz DATE OF STUDY: 04/11/[address]: Mark Gomez NP 2-DIMENSIONAL: YES M.MODE: YES DOPPLER: YES COLOR FLOW: YES TDS: PORTABLE: DEFINITY: BUBBLE STUDY: DIAGNOSIS: CONGESTIVE HEART FAILURE, DYSPNEA CARDIAC HISTORY: CATHERIZATION: YES SURGERY: YES PROSTHETIC VALVE: NO PACEMAKER: YES MEASUREMENTS (cm) DIASTOLIC (NORMALS) SYSTOLIC (NORMALS) IVSd 0.9 (0.6-1.2) LA Diam 4.0 (1.9-4.0) LVEF 37% LVIDd 6.0 (3.5-5.7) LVIDs 4.9 (2.0-3.5) %FS 18% LVPWd 1.0 (0.6-1.2) Ao Diam 3.2 (2.0-3.7) 2 DIMENSIONAL ASSESSMENT: RIGHT ATRIUM: NORMAL LEFT ATRIUM: ENLARGED RIGHT VENTRICLE: PACEMAKER WIRE LEFT VENTRICLE: DEPRESSED FUNCTION TRICUSPID VALVE: MODERATE TRICUSPID REGURGITATION MITRAL VALVE: MILD MITRAL REGURGITATION PULMONIC VALVE: NORMAL AORTIC VALVE: NORMAL PERICARDIAL EFFUSION: NONE AORTIC ROOT: NORMAL LEFT VENTRICULAR WALL MOTION: ANTERIOR/ ANTEROSEPTAL SEVERE HYPOKINESIS. DOPPLER/COLOR FLOW: SEE BELOW COMMENTS: MODERATELY DEPRESSED LEFT VENTRICULAR EJECTION FRACTION 35-40%. ANTERIOR/ ANTEROSEPTAL HYPOKINESIS. LEFT ATRIAL ENLARGEMENT. MODERATE TRICUSPID REGURGITATION. MILD TO MODERATE MITRAL REGURGITATION. TECHNOLOGIST: MASSIMO VILLAFANA
[2022-04-11 15:14] VITALS: O2SAT 100
--- NOTE | 2022-04-12 20:24 | P.DS ---
Admission Date: 04/08/22 Discharge Date: 04/11/22 Disposition: DC HOME/HOME HEALTH CARE Reason for Admission: Weakness Consultations: Cardiology - Dr. Montemayor Brief History of Present Illness: 86-year-old male with history of CAD status post two-vessel CABG 1993, chronic systolic congestive heart failure, atrial fibrillation status post watchman procedure, COPD, iec-lwqagsz-zadnomqfq diabetes, hypertension and hyperlipidemia with recurrent bladder infections presented to the emergency department on 04/07/2022 for generalized weakness his evaluation in the emergency department was unremarkable he did not have urinary tract infection but he and his family felt as if he was very weak and would not be unable to care for himself at home so he was admitted under observation. His primary care doctor is Dr. Willis but he has not been able to be reached by staff for that reason patient is going to be admitted to the hospitalist service. I went to examine the patient he states he is feeling well but still does feel relatively weak. He gets around at home with a walker his labs again were unremarkable today his urine culture was with no growth as well as blood cultures. Hospital Course: Problem List Acute hypoxemic respiratory failure secondary to acute on chronic CHF exacerbation (HFrEF) Generalized weakness Atrial fibrillation s/p watchman procedure CAD s/p CABG Bvz-kfkulei-ozjkctkru diabetes mellitus, type 2 Hypertension Hyperlipidemia Patient was found to be in acute on chronic CHF exacerbation. Treated with IV lasix and oxygen supplementation with good results. His renal function remained stable. He worked with PT and ambulated >80 feet. His oxygen was weaned down to 1-2 L NC, and was breathing much more comfortably. No evidence of infection. Echocardiogram was similar to prior. Cardiology was consulted, recommended continue current regimen, consideration of addition of an PATRICIA inhibitor. Patient's blood pressure has been borderline low-normal as he is diuresing well. Patient to follow up with PCP and Cardiology to discuss addition of PATRICIA inhibitor, or possibly Entresto. Discharged home with lasix 20mg daily. Recommended daily weights, and to take an extra dose if noticed >3lb weight gain with swelling or worsening shortness of breath. Discharged home with home health and oxygen Physical exam GEN: Alert, oriented HEENT: Normal conjunctiva, sclera anicteric CV: Regular rate and rhythm, trace b/l pedal edema Pulm: non labored respirations on 2L NC ABD: Soft, nontender, nondistended Neuro: Normal speech, normal affect Vital Signs/Physical Exam: Temp Pulse Resp BP Pulse Ox 97.2 F 72 18 119/60 100 04/11/22 12:00 04/11/22 16:27 04/11/22 12:00 04/11/22 16:27 04/11/22 12:00 Laboratory Data at Discharge: WBC 8.0 K/uL (4.3-10.9) 04/10/22 05:31 Hgb 11.1 g/dL (13.6-17.9) L 04/10/22 05:31 Hct 32.7 % (39.6-49.0) L 04/10/22 05:31 Plt Count 186 K/uL (152-406) 04/10/22 05:31 PT 13.6 SECONDS (9.5-12.5) H 04/07/22 13:22 INR 1.23 04/07/22 13:22 APTT 30.3 SECONDS (24.3-36.9) 04/07/22 13:22 Sodium 138 mmol/L (136-145) 04/11/22 05:26 Potassium 3.6 mmol/L (3.5-5.1) 04/11/22 05:26 BUN 34 mg/dL (7-18) H 04/11/22 05:26 Creatinine 1.04 mg/dL (0.55-1.3) 04/11/22 05:26 Glucose 135 mg/dL (74-106) H 04/11/22 05:26 Magnesium 2.0 mg/dL (1.8-2.4) 04/11/22 05:26 Total Bilirubin 1.0 mg/dL (0.2-1.0) 04/10/22 05:31 AST 14 U/L (15-37) L 04/10/22 05:31 ALT 17 U/L (12-78) 04/10/22 05:31 Alkaline Phosphatase 126 U/L (45-117) H 04/10/22 05:31 Home Medications: Aspirin 325 mg PO DAILY 04/08/22 Carvedilol [Coreg] 1 tab PO BID 04/08/22 Docusate [Colace Cap*] 1 cap PO BID 04/08/22 Glimepiride 1 mg PO DAILY 04/08/22 Lovastatin 40 mg PO BEDTIME 04/08/22 Omeprazole [Prilosec] 40 mg PO DAILY 04/08/22 Ranolazine [Ranexa] 500 mg PO BID 04/08/22 Furosemide [Lasix] 20 mg PO DAILY 30 Days #30 tab 04/11/22 New Medications: Furosemide [Lasix] 20 mg PO DAILY 30 Days #30 tab Physician Discharge Instructions: Patient was found to be in acute on chronic CHF exacerbation. Treated with IV lasix and oxygen supplementation with good results. His renal function remained stable. He worked with PT and ambulated >80 feet. His oxygen was weaned down to 1-2 L NC, and was breathing much more comfortably. No evidence of infection. Echocardiogram was similar to prior. Cardiology was consulted, recommended continue current regimen, consideration of addition of an PATRICIA inhibitor. Patient's blood pressure has been borderline low-normal as he is diuresing well. Patient to follow up with PCP and Cardiology to discuss addition of PATRICIA inhibitor, or possibly Entresto. Discharged home with lasix 20mg daily. Recommended daily weights, and to take an extra dose if noticed >3lb weight gain with swelling or worsening shortness of breath. Discharged home with home health and oxygen Followup: Deanna Willis MD [Primary Care Provider] - (Call to schedule appointment) Time spent managing pt's care (in minutes): 45
== END 2022-04-11 16:50 | disposition home health service (06) | DRG 291 ==
LOC: ER 12:56 → ERHOLD 16:37 → 2ND 19:54 → OBSVTOIN 04-08 20:19
PROVIDERS: ADMIT Hospitalist; ATTEND Hospitalist
PROC: 5A09457 Assistance with Respiratory Ventilation, 24-96 Consecutive Hours, Continuous Positive Airway Pressure (ICD-10-PCS; principal; 2022-04-09)
DX: I50.23 Acute on chronic systolic (congestive) heart failure (principal); J96.01 Acute respiratory failure with hypoxia; I48.11 Longstanding persistent atrial fibrillation; I25.10 Atherosclerotic heart disease of native coronary artery without angina pectoris; J44.9 Chronic obstructive pulmonary disease, unspecified; E11.9 Type 2 diabetes mellitus without complications; E78.5 Hyperlipidemia, unspecified; I10 Essential (primary) hypertension; Z95.1 Presence of aortocoronary bypass graft; Z95.0 Presence of cardiac pacemaker; Z87.891 Personal history of nicotine dependence; Z85.9 Personal history of malignant neoplasm, unspecified; Z82.49 Family history of ischemic heart disease and other diseases of the circulatory system; Z87.440 Personal history of urinary (tract) infections; Z95.818 Presence of other cardiac implants and grafts
CPT/HCPCS: 36415; 71045; 71275; 80048; 80053; 81003; 81015; 82805; 82947; 83605; 83735; 83880; 84145; 84484; 85025; 85610; 85730; 86140; 87040; 87086; 87088; 93005; 93306; 94660; 94760; 96360; 97116; 97161; 97530; 99285; G0378; J1650; J1815; J1940; Q9967; U0003

== ENCOUNTER 2022-08-01 10:00 | Inpatient (IN) | payer OTHER, MEDICARE ==
--- NOTE | 2022-08-01 10:55 | RAD REPORT ---
EXAM DESCRIPTION: Neeraj Single View08/01/2022 10:43 am CLINICAL HISTORY: Shortness of breath COMPARISON: April 2022 FINDINGS: Bilateral calcified lung granulomas. Mild bilateral interstitial lung opacities probably mostly if not completely chronic Heart is mildly enlarged. Postsurgical changes involve the chest. Pacemaker leads in place There may be small bilateral pleural effusions
[2022-08-01 11:29] LABS: SARS-COV-2 RT PCR NEGATIVE (NEGATIVE)
[2022-08-01 12:17] LABS: Absolute Lymphocytes (CBC) 0.6 K/uL (0.7-4.9); Hematocrit 34.8 % (39.6-49.0); Lymphocytes % 5.5 % (15.3-44.8); MCV 107.4 fL (80-100); MPV 7.9 fL (7.6-11.3); RBC Red Blood Cell Count 3.24 M/uL (4.33-5.43)
[2022-08-01 12:18] LABS: Protime INR 1.38
[2022-08-01 12:35] LABS: Bilirubin Direct 0.3 mg/dL (0-0.2); Bilirubin Total 0.7 mg/dL (0.2-1.0); Magnesium 2.3 mg/dL (1.8-2.4); Protein, Total 8.2 g/dL (6.4-8.2)
[2022-08-01 12:39] LABS: Troponin High Sensitivity 81.3 pg/mL (<58.9)
[2022-08-01 12:41] LABS: Blood Morphology Comment NOTED (NOT SEEN); Macrocytosis 2+; Platelet Estimate ADEQ; White Blood Cell Scan OK (OK)
--- NOTE | 2022-08-01 13:14 | ER ---
Nurse's Notes [facility] Name: Екатерина Hare Age: 86 yrs Sex: Male : 1935 Arrival Date: 08/01/2022 Time: 10:09 Bed 19 Private MD: Diagnosis: Dyspnea;Unspecified combined systolic (congestive) and diastolic (congestive) heart failure;Type 2 diabetes mellitus with hyperglycemia;Acute and chronic respiratory failure with hypercapnia;Acidosis-RESPIRATORY Presentation: 08/01 11:00 Chief complaint: EMS states: patient called for shortness of breath. Coronavirus ko1 screen: At this time, the client does not indicate any symptoms associated with coronavirus-19. Ebola Screen: No symptoms or risks identified at this time. Initial Sepsis Screen: Does the patient meet any 2 criteria? No. Patient's initial sepsis screen is negative. Does the patient have a suspected source of infection? No. Patient's initial sepsis screen is negative. Risk Assessment: Do you want to hurt yourself or someone else? Patient reports no desire to harm self or others. Onset of symptoms was August 01, 2022. 11:00 Method Of Arrival: EMS ko1 11:00 Acuity: NICOLE 3 ko1 Triage Assessment: 11:00 General: Appears in no apparent distress. comfortable, Behavior is calm, cooperative, ko1 appropriate for age. Pain: Denies pain. Historical: - Allergies: 12:19 Sulfa (Sulfonamide Antibiotics); ko1 - PMHx: 12:19 Atrial Fib; CAD; cardiomyopathy; defibrilllator; Diabetes - NIDDM; Hyperlipidemia; ko1 Hypertension; Myocardial infarction; Pacemaker; Penile Cancer; Pneumonia; CHF; - PSHx: 12:19 partial penectomy; ko1 - Immunization history:: Adult Immunizations unknown. - Social history:: Smoking status: Patient denies any tobacco usage or history of. - Family history:: not pertinent. Screenin:15 Abuse screen: Denies threats or abuse. Denies injuries from another. Nutritional ko1 screening: No deficits noted. Tuberculosis screening: No symptoms or risk factors identified. Fall Risk None identified. Assessment: 10:15 General: Appears in no apparent distress. uncomfortable, Behavior is calm, cooperative, ko1 appropriate for age. Pain: Denies pain. Neuro: No deficits noted. Cardiovascular: Patient's skin is warm and dry. Rhythm is ventricular pacer. Respiratory: Reports shortness of breath at rest on exertion Breath sounds with crackles bilaterally. GI: No deficits noted. : No deficits noted. EENT: No deficits noted. 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 Musculoskeletal: No deficits noted. Vital Signs: 11:00 BP 122 / 68; Pulse 74; Resp 22; Temp 98.8(T); Pulse Ox 99% on 3 lpm NC; ko1 12:00 BP 122 / 68; Pulse 74; Resp 18; Pulse Ox 97% on 3 lpm NC; ko1 12:36 BP 133 / 76; Pulse 70; Pulse Ox 100% on 3 lpm NC; ko1 14:13 BP 126 / 72; Pulse 70; Pulse Ox 100% on Nebulizer Mask; ko1 ED Course: 10:09 Patient arrived in ED. ko1 10:12 Margareth Allen, REUBEN is Primary Nurse. ko1 10:15 John Bartholomew MD is Attending Physician. mariah 10:45 XRAY Chest (1 view) In Process Unspecified. EDMS 10:59 Missed attempt(s): 20 gauge in right antecubital area. mm9 10:59 Patient has correct armband on for positive identification. Bed in low position. Call mm9 light in reach. Side rails up X2. Adult w/ patient. Warm blanket given. cardiac monitor technician on. Pulse ox on. NIBP on. 11:00 Arm band placed on right wrist. ko1 11:02 COVID-19/FLU A+B Sent. mm9 11:15 Missed attempt(s): 22 gauge in left forearm. ko1 11:52 Lactate w/ 2H reflex if indic. Sent. ko1 11:52 Blood Culture Adult (2) Sent. ko1 11:52 Lipase Sent. ko1 11:52 Basic Metabolic Panel Sent. ko1 11:53 CBC with Diff Sent. ko1 11:53 LFT's Sent. ko1 11:53 Magnesium Sent. ko1 11:53 NT PRO-BNP Sent. ko1 11:53 PT-INR Sent. ko1 11:53 Troponin HS Sent. ko1 12:00 Triage completed. ko1 12:31 Inserted saline lock: 20 gauge in right antecubital area, using aseptic technique. bp ,using aseptic technique. Insertion VIA US guided. 13:10 Lorenzo Sultana MD is Hospitalizing Provider. [facility] 16:31 Awaiting bed assignment. ko1 Administered Medications: 13:26 Drug: Xopenex (levalbuterol) 2.5 mg Route: Inhalation; ko1 13:26 Drug: AtroVENT (ipratropium) Aerosol 0.5 mg Route: Inhalation; ko1 13:27 Drug: Lasix (furosemide) 40 mg Route: IVP; Site: right antecubital; ko1 13:35 Drug: Rocephin (cefTRIAXone) 1 grams Route: IV; Rate: per protocol; Site: right ko1 antecubital; 13:35 Drug: SOLU-Medrol (methylPrednisoLONE) 125 mg Route: IVP; Site: right antecubital; ko1 Outcome: 13:14 Decision to Hospitalize by Provider. [facility] 16:31 Instructed on the need for admit, Demonstrated understanding of instructions. ko1 18:43 Patient left the ED. rv1 Signatures: Dispatcher [employer] EDMS John Bartholomew MD MD cha Peltier, Brian, RN RN Margareth Smith RN RN ko1 Martinez, Maria mm9 Villegas, Rebecca rv1 Corrections: (The following items were deleted from the chart) 12:37 12:00 BP 122 / 68; Pulse 74bpm; Resp 18bpm; Pulse Ox 97% RA; ko1 ko1 14:13 10:15 BP 126 / 72; Pulse 70bpm; Pulse Ox 100% Nebulizer Mask; ko1 ko1
--- NOTE | 2022-08-01 13:14 | EDPHYS ---
Physician Documentation [facility] Name: Екатерина Hare Age: 86 yrs Sex: Male : 1935 Arrival Date: 08/01/2022 Time: 10:09 Bed 19 Private MD: HENNY Physician John Bartholomew HPI: 08/01 13:03 This 86 yrs old Male presents to ER via EMS with complaints of sob, hx chf. mariah 13:03 The patient has shortness of breath at rest, with light activity. Onset: The mariah symptoms/episode began/occurred 3 day(s) ago. Duration: The symptoms are continuous, and are steadily getting worse. The patient's shortness of breath is aggravated by coughing, exertion, light activity, supine position, talking, is alleviated by rest, sitting up, application of supplemental oxygen. Associated signs and symptoms: Pertinent positives: non-productive cough. Severity of symptoms: At their worst the symptoms were mild moderate in the emergency department the symptoms have improved mildly. The patient or guardian reports cough, that is intermittent, difficulty breathing. Severity of symptoms: At their worst the symptoms were mild, moderate, in the emergency department the symptoms have improved, mildly. Modifying factors: The symptoms are alleviated by nothing, the symptoms are aggravated by nothing. Historical: - Allergies: 12:19 Sulfa (Sulfonamide Antibiotics); ko1 - PMHx: 12:19 Atrial Fib; CAD; cardiomyopathy; defibrilllator; Diabetes - NIDDM; Hyperlipidemia; ko1 Hypertension; Myocardial infarction; Pacemaker; Penile Cancer; Pneumonia; CHF; - PSHx: 12:19 partial penectomy; ko1 - Immunization history:: Adult Immunizations unknown. - Social history:: Smoking status: Patient denies any tobacco usage or history of. - Family history:: not pertinent. ROS: 13:04 Constitutional: Negative for fever, chills, and weight loss, Eyes: Negative for injury, mariah pain, redness, and discharge, ENT: Negative for injury, pain, and discharge, Neck: Negative for injury, pain, and swelling, Cardiovascular: Negative for chest pain, palpitations, and edema, Abdomen/GI: Negative for abdominal pain, nausea, vomiting, diarrhea, and constipation, Back: Negative for injury and pain, : Negative for injury, bleeding, discharge, and swelling, MS/Extremity: Negative for injury and deformity, Skin: Negative for injury, rash, and discoloration, Neuro: Negative for headache, weakness, numbness, tingling, and seizure, Psych: Negative for depression, anxiety, suicide ideation, homicidal ideation, and hallucinations, Allergy/Immunology: Negative for hives, rash, and allergies, Endocrine: Negative for neck swelling, polydipsia, polyuria, polyphagia, and marked weight changes, Hematologic/Lymphatic: Negative for swollen nodes, abnormal bleeding, and unusual bruising. 13:04 Respiratory: Positive for cough, dyspnea on exertion, shortness of breath, at rest. Exam: 13:04 Constitutional: This is a well developed, well nourished patient who is awake, alert, mariah and in no acute distress. Head/Face: Normocephalic, atraumatic. Eyes: Pupils equal round and reactive to light, extra-ocular motions intact. Lids and lashes normal. Conjunctiva and sclera are non-icteric and not injected. Cornea within normal limits. Periorbital areas with no swelling, redness, or edema. ENT: Nares patent. No nasal discharge, no septal abnormalities noted. Tympanic membranes are normal and external auditory canals are clear. Oropharynx with no redness, swelling, or masses, exudates, or evidence of obstruction, uvula midline. Mucous membranes moist. Neck: Trachea midline, no thyromegaly or masses palpated, and no cervical lymphadenopathy. Supple, full range of motion without nuchal rigidity, or vertebral point tenderness. No Meningismus. Chest/axilla: Normal chest wall appearance and motion. Nontender with no deformity. No lesions are appreciated. Cardiovascular: Regular rate and rhythm with a normal S1 and S2. No gallops, murmurs, or rubs. Normal PMI, no JVD. No pulse deficits. Abdomen/GI: Soft, non-tender, with normal bowel sounds. No distension or tympany. No guarding or rebound. No evidence of tenderness throughout. Back: No spinal tenderness. No costovertebral tenderness. Full range of motion. Male : Normal genitalia with no discharge or lesions. Skin: Warm, dry with normal turgor. Normal color with no rashes, no lesions, and no evidence of cellulitis. MS/ Extremity: Pulses equal, no cyanosis. Neurovascular intact. Full, normal range of motion. Neuro: Awake and alert, GCS 15, oriented to person, place, time, and situation. Cranial nerves II-XII grossly intact. Motor strength 5/5 in all extremities. Sensory grossly intact. Cerebellar exam normal. Normal gait. Psych: Awake, alert, with orientation to person, place and time. Behavior, mood, and affect are within normal limits. 13:04 ECG was reviewed by the Attending Physician. 13:04 Respiratory: the patient does not display signs of respiratory distress, Respirations: no acute changes, Breath sounds: decreased breath sounds, that are moderate, are located in both bases, rhonchi, that are mild, are scattered, stridor, is not appreciated, + upper airway congestion. wheezing: expiratory is scattered. Vital Signs: 11:00 BP 122 / 68; Pulse 74; Resp 22; Temp 98.8(T); Pulse Ox 99% on 3 lpm NC; ko1 12:00 BP 122 / 68; Pulse 74; Resp 18; Pulse Ox 97% on 3 lpm NC; ko1 12:36 BP 133 / 76; Pulse 70; Pulse Ox 100% on 3 lpm NC; ko1 14:13 BP 126 / 72; Pulse 70; Pulse Ox 100% on Nebulizer Mask; ko1 MDM: 10:15 Patient medically screened. mariah 13:08 Differential diagnosis: Anxiety Reaction asthma, Bronchitis CHF exacerbation, Chronic mariah Obstructive Pulmonary Disease pneumonia, Pneumothorax pulmonary edema, Pulmonary Embolism reactive airway disease, Sepsis. Antibiotic administration: Rocephin and Zithromax given. The patient's Wells Deep Vein Thrombosis Score was calculated as follows: Total Score: 0-2 Pts- Low Risk. Differential Diagnosis: Bronchitis Influenza Upper Respiratory Infection Pharyngitis Asthma Exacerbation Viral Syndrome Pneumonia. The patient's pulmonary embolism risk score was calculated as follows: Total Score: 0-2 points. This patient was found to be at low risk for a pulmonary embolism by using the Well's assessment criteria. Immunization status: Pneumococcal vaccine: Influenza vaccine: Data reviewed: vital signs, nurses notes, EMS record, lab test result(s), EKG, radiologic studies, plain films. Data interpreted: microstrategy architect developer: rate is 70 beats/min, rhythm is regular, Pulse oximetry: on room air is 100 %. Test interpretation: by ED physician or midlevel provider: ECG, plain radiologic studies. Counseling: I had a detailed discussion with the patient and/or guardian regarding: the historical points, exam findings, and any diagnostic results supporting the discharge/admit diagnosis, lab results, radiology results, the need for further work-up and treatment in the hospital. 08/01 10:18 Order name: Basic Metabolic Panel; Complete Time: 12:50 [facility] 08/01 10:18 Order name: CBC with Diff; Complete Time: 12:50 [facility] 08/01 10:18 Order name: LFT's; Complete Time: 12:50 [facility] 08/01 10:18 Order name: Magnesium; Complete Time: 12:50 [facility] 08/01 10:18 Order name: NT PRO-BNP; Complete Time: 12:50 [facility] 08/01 10:18 Order name: PT-INR; Complete Time: 12:50 [facility] 08/01 10:18 Order name: Troponin HS; Complete Time: 12:50 [facility] 08/01 10:18 Order name: Lipase; Complete Time: 12:50 [facility] 08/01 10:18 Order name: Blood Culture Adult (2) [facility] 08/01 10:18 Order name: COVID-19/FLU A+B; Complete Time: 12:50 [facility] 08/01 10:18 Order name: Lactate w/ 2H reflex if indic.; Complete Time: 12:50 [facility] 08/01 12:42 Order name: CBC Smear Scan; Complete Time: 12:50 [facility] 08/01 13:51 Order name: ABG em1 08/01 10:18 Order name: XRAY Chest (1 view); Complete Time: 12:50 [facility] 08/01 10:18 Order name: EKG; Complete Time: 10:19 [facility] 08/01 14:37 Order name: CBC with Automated Diff [facility] 08/01 14:37 Order name: CBC with Automated Diff [facility] 08/01 14:37 Order name: Comprehensive Metabolic Panel [facility] 08/01 14:37 Order name: Comprehensive Metabolic Panel [facility] 08/01 14:38 Order name: Magnesium EDMS 08/01 14:38 Order name: Magnesium EDMS 08/01 14:40 Order name: Troponin High Sensitivity [facility] 08/01 14:40 Order name: Troponin High Sensitivity EDMS 08/01 14:40 Order name: Troponin High Sensitivity [facility] 08/01 10:18 Order name: Cardiac monitoring; Complete Time: 11:00 [facility] 08/01 10:18 Order name: EKG - Nurse/Tech; Complete Time: 11:41 [facility] 08/01 10:18 Order name: IV Saline Lock [facility] 08/01 10:18 Order name: Labs collected and sent; Complete Time: 11:52 [facility] 08/01 10:18 Order name: O2 Per Protocol; Complete Time: 11:28 [facility] 08/01 10:18 Order name: O2 Sat Monitoring; Complete Time: 11:28 [facility] 08/01 10:18 Order name: Urine Dipstick-Ancillary (obtain specimen) [facility] 08/01 14:37 Order name: Soft and Bite Sized-6 (Chopped) EDMS EC:04 Rate is 70 beats/min. Rhythm is regular. QRS Clarence is Normal. NH interval is normal. QRS mariah interval is normal. QT interval is normal. No Q waves. T waves are Normal. No ST changes noted. Clinical impression: Abnormal EKG without significant change and No evidence of ischemia. Interpreted by me. Reviewed by me. Administered Medications: 13:26 Drug: Xopenex (levalbuterol) 2.5 mg Route: Inhalation; ko1 13:26 Drug: AtroVENT (ipratropium) Aerosol 0.5 mg Route: Inhalation; ko1 13:27 Drug: Lasix (furosemide) 40 mg Route: IVP; Site: right antecubital; ko1 13:35 Drug: Rocephin (cefTRIAXone) 1 grams Route: IV; Rate: per protocol; Site: right ko1 antecubital; 13:35 Drug: SOLU-Medrol (methylPrednisoLONE) 125 mg Route: IVP; Site: right antecubital; ko1 Disposition Summary: 08/01/22 13:14 Hospitalization Ordered Hospitalization Status: Inpatient Admission mariah Provider: Lorenzo Sultana cha Location: Telemetry/MedSurg (Inpatient) mariah Condition: Fair mariah Problem: new mariah Symptoms: have improved mariah Bed/Room Type: Standard mariah Room Assignment: 206(08/01/22 17:11) em1 Diagnosis - Dyspnea mariah - Unspecified combined systolic (congestive) and diastolic (congestive) heart failure mariah - Type 2 diabetes mellitus with hyperglycemia mariah - Acute and chronic respiratory failure with hypercapnia mariah - Acidosis - RESPIRATORY mariah Forms: - Medication Reconciliation Form mariah - SBAR form mariah Signatures: Dispatcher [employer] EDMS John Bartholomew MD MD cha Martinez, Eric em1 Margareth Allen RN RN ko1 Corrections: (The following items were deleted from the chart) 13:54 10:19 Arterial Blood Gas+[id number].LAB.ISAIASZ ordered. EDMS EDMS 17:11 13:14 [facility]
[2022-08-01] MEDS ORDERED: METHYLPREDNISOLONE 125 MG INJ ONE (13:22)
[2022-08-01] MEDS ORDERED: LEVALBUTEROL 1.25 MG/3 ML NEB ONE (13:22)
[2022-08-01] MEDS ORDERED: CEFTRIAXONE 1000 MG/VIAL ONE (13:22)
[2022-08-01] MEDS ORDERED: FUROSEMIDE 40 MG/4 ML VIAL ONE (13:23)
[2022-08-01] MEDS ORDERED: IPRATROPIUM BROM 0.5MG/2.5ML ONE (13:23)
--- NOTE | 2022-08-01 14:33 | P.HP ---
Certification for Inpatient Patient admitted to: Observation With expected LOS: <2 Midnights Practitioner: I am a practitioner with admitting privileges, knowledge of patient current condition, hospital course, and medical plan of care. Services: Services provided to patient in accordance with Admission requirements found in Title 42 Section 412.3 of the Code of Federal Regulations Patient History Date of Service: 08/01/22 Reason for admission: shortness of breath History of Present Illness: 86yo M, presents with SOB/SELBY over the last 2-3 weeks. He was last admitted a few months ago for CHF exacerbation. He stopped taking Lasix ~1 month ago. No other changes in medications, no recent infection, no fever/chills, no diarrhea. Denies any significant leg swelling, but states he typically doesn't get leg swelling, fluid just goes to his lungs. In the ED, workup noted elevated troponin, BNP, and CXR with concern for CHF. He took one dose of his lasix today - which is first dose in ~1 month. Allergies Sulfa (Sulfonamide Antibiotics) [Sulfa(Sulfonamide Antibiotics)] Allergy (Mild, Verified 07/18/21 14:28) Nausea/Vomiting Home Medications: Aspirin 325 mg PO DAILY 04/08/22 Carvedilol [Coreg] 1 tab PO BID 04/08/22 Docusate [Colace Cap*] 1 cap PO BID 04/08/22 Glimepiride 1 mg PO DAILY 04/08/22 Lovastatin 40 mg PO BEDTIME 04/08/22 Omeprazole [Prilosec] 40 mg PO DAILY 04/08/22 Ranolazine [Ranexa] 500 mg PO BID 04/08/22 Furosemide [Lasix] 20 mg PO DAILY 30 Days #30 tab 04/11/22 - Past Medical/Surgical History Diabetic: Yes -: HTN -: DM -: MS x3 -: PNeumonia -: CAD -: cardiac watchman -: Hyperlipidemia -: CHF -: AFIB -: Cataract sx -: appy -: bilat shoulder sx -: defib/pacemaker placement -: Bypass 1994 -: hemorroidectomy Psychosocial/ Personal History: Patient lives at home, alone - Family History Mother -: Heart disease Father -: Other (see notes) Notes: stroke oldest brother -: Other (see notes) Notes: heart attack - Social History Smoking Status: Unknown if ever smoked Alcohol use: No CD- Drugs: No Caffeine use: Yes Review of Systems 10-point ROS is otherwise unremarkable Physical Examination - Physical Exam General: Alert, Oriented x3, Mild distress HEENT: EOMI, Sclerae nonicteric Neck: Supple, No LAD Respiratory: Diminished, Crackles/rales Cardiovascular: Regular rate/rhythm, Edema (trace bilateral lower extremity) Gastrointestinal: Soft and benign, Non-distended, No tenderness Musculoskeletal: No contractures, No tenderness Integumentary: No rashes, No significant lesion Neurological: Normal speech, Normal strength at 5/5 x4 extr, Normal affect - Studies Laboratory Data (last 24 hrs) 08/01/22 11:37: PT 15.2 H, INR 1.38 08/01/22 11:37: WBC 10.10, Hgb 11.4 L, Hct 34.8 L, Plt Count 207 08/01/22 11:37: Sodium 138, Potassium 5.0, BUN 58 H, Creatinine 1.28, Glucose 169 H, Magnesium 2.3, Total Bilirubin 0.7, AST 19, ALT 26, Alkaline Phosphatase 96, Lipase 287 Assessment and Plan - Advance Directives Does patient have a Living Will: No Does patient have a Durable POA for Healthcare: Yes Physician Review Additional Text: Problem list Acute hypoxemic respiratory failure secondary to acute on chronic systolic CHF exacerbation Generalized weakness History of atrial fibrillation status post watchman procedure CAD status post CABG NIDDM 2 Hypertension Hyperlipidemia Pacemaker with defibrillator Patient appears to be volume overloaded, chest x-ray noted possible bilateral pleural effusions, and chronic interstitial changes Elevated troponin suspect due to demand ischemia in setting of pulmonary edema/volume overload, will trend, consult cardiology if significantly increases. EKG unavailable for my review at time of admission, ER physician reports no significant changes, no STT wave abnormalities. Patient denies any chest pain He has not been taking Lasix for the last month, was admitted few months ago for similar presentation 9, improved with Lasix Received 20 mg IV Lasix in ED, continue on 20 mg IV twice daily Lasix Has home oxygen and support at home Confirm home medications, restart as appropriate Patient also reports a slowly progressive difficulty with swallowing certain consistencies for the last few years, seems more pronounced over the last several months Is already working on getting an outpatient swallow evaluation this coming week Dysphagia diet ordered, does not appear to have aspiration pneumonia at this time Monitor for aspiration, aspiration precautions VTE: Lovenox Code: DNR Dispo: Home, possibly by tomorrow if improving Time Spent Managing Pts Care (In Minutes): 70
[2022-08-01 15:16] LABS: Arterial Blood Carboxyhemoglob 1.5 % (0-1.5); Blood Gas Oxyhemoglobin 91.9 % (94-97); Blood O2 Saturation 94.3 % (92-98.5)
[2022-08-01] MEDS: ENOXAPARIN 40 MG/0.4 ML SQ SCH (16:00)
[2022-08-01 16:29] VITALS: BMI 20.9
[2022-08-01] MEDS: FUROSEMIDE 20 MG/ 2ML VIAL IV SCH (17:00)
[2022-08-01] MEDS ORDERED: FUROSEMIDE 20 MG/ 2ML VIAL ONE (17:25)
[2022-08-01] MEDS ORDERED: ENOXAPARIN 40 MG/0.4 ML SQ ONE (17:25)
[2022-08-01] MEDS ORDERED: RANOLAZINE 1000 MG PO SCH (21:00)
[2022-08-01] MEDS: carvediloL 3.125 MG TAB PO SCH (21:40)
[2022-08-01] MEDS: DOCUSATE NA 100 MG CAP PO SCH (21:40)
[2022-08-01 21:51] LABS: Specific Gravity 1.013 (1.005-1.030); Urine Bilirubin NEGATIVE (Negative); Urine Blood Negative (Negative); Urine Clarity Clear (Clear); Urine Color Yellow (Yellow); Urine Glucose NEGATIVE (Negative); Urine Protein NEGATIVE (Negative); Urine Urobilinogen Normal (Normal)
[2022-08-01] MEDS ORDERED: ACETAMINOPHEN 500 MG TAB PO ONE (22:39)
[2022-08-02 03:55] LABS: Absolute Lymphocytes (CBC) 0.2 K/uL (0.7-4.9); Hematocrit 32.7 % (39.6-49.0); Lymphocytes % 4.1 % (15.3-44.8); MCV 107.7 fL (80-100); MPV 8.1 fL (7.6-11.3); RBC Red Blood Cell Count 3.04 M/uL (4.33-5.43)
[2022-08-02 04:18] LABS: Bilirubin Total 0.6 mg/dL (0.2-1.0); Magnesium 2.1 mg/dL (1.8-2.4); Potassium 4.5 mmol/L (3.5-5.1); Protein, Total 7.6 g/dL (6.4-8.2)
[2022-08-02] MEDS: carvediloL 3.125 MG TAB PO SCH ×2 (10:31→20:26)
[2022-08-02] MEDS: ASPIRIN 325 MG TAB PO SCH (10:31)
[2022-08-02] MEDS: DOCUSATE NA 100 MG CAP PO SCH ×2 (10:31→20:26)
[2022-08-02] MEDS: ENOXAPARIN 40 MG/0.4 ML SQ SCH (10:32)
[2022-08-02] MEDS: FUROSEMIDE 20 MG/ 2ML VIAL IV SCH ×2 (10:32→17:00)
--- NOTE | 2022-08-02 12:09 | P.PN ---
Date of Service: 08/02/22 Subjective: no acute events overnight no new / worsening symptoms feels breathing has improved at rest, has not ambulated urinating ~same as at home ROS: 10 point ROS as noted above, otherwise negative Physical exam GEN: Alert, oriented, NAD HEENT: Normal conjunctiva, sclera anicteric CV: Regular rate and rhythm, trace pedal edema Pulm: b/l crackles, mild labored respirations ABD: Soft, nontender, nondistended Neuro: Normal speech, normal affect Problem list Acute hypoxemic respiratory failure secondary to acute on chronic systolic CHF exacerbation Generalized weakness History of atrial fibrillation status post watchman procedure CAD status post CABG NIDDM 2 Hypertension Hyperlipidemia Pacemaker with defibrillator volume overloaded CXR: suspected bilateral pleural effusions, and chronic interstitial changes trop elevated - suspect due to demand ischemia, in setting of pulmonary edema/volume overload trop trended up initially, cardio consulted trop down this morning, denies chest pain EKG unavailable for my review at time of admission, denies any chest pain He has not been taking Lasix for the last month, was admitted few months ago for similar presentation 9, improved with Lasix Received 20 mg IV Lasix in ED, continue on 20 mg IV twice daily Lasix Has home oxygen and support at home Patient also reports a slowly progressive difficulty with swallowing certain consistencies for the last few years, seems more pronounced over the last several months Is already working on getting an outpatient swallow evaluation this coming week Dysphagia diet ordered, does not appear to have aspiration pneumonia at this time Monitor for aspiration, aspiration precautions VTE: Lovenox Code: DNR Dispo: Home, anticipate Thursday - 08/03 Time Spent Managing Pts Care (In Minutes): 35
[2022-08-02] MEDS: ATORVASTATIN 40 MG TAB PO SCH (20:27)
[2022-08-03 06:35] LABS: Hematocrit 31.3 % (39.6-49.0); MCV 107.7 fL (80-100)
[2022-08-03] MEDS ORDERED: ALBUMIN HUMAN 25% 100 ML IV ONE ×3 (06:36→08:00)
[2022-08-03 06:56] LABS: Magnesium 2.3 mg/dL (1.8-2.4); Potassium 4.4 mmol/L (3.5-5.1)
--- NOTE | 2022-08-03 07:41 | RAD REPORT ---
EXAM DESCRIPTION: RAD - Chest Single View - 08/03/2022 6:32 am CLINICAL HISTORY: chf COMPARISON: Chest Single View dated 08/01/2022; Chest Single View dated 04/10/2022; Chest Single View dated 04/09/2022; Chest Single View dated 04/07/2022; Chest For Pe Angio dated 04/09/2022 FINDINGS: Lines: None. Lungs: Innumerable calcified pulmonary nodules. Bilateral interstitial airspace disease. Pleural: Small effusions. Cardiac: Similar cardiomegaly. Pacemaker/ICD. Mediastinum: Within normal limits. Bones: No acute fractures. Sternotomy. Other: None IMPRESSION: Pulmonary edema.
[2022-08-03] MEDS: DOCUSATE NA 100 MG CAP PO SCH ×2 (08:22→20:12)
[2022-08-03] MEDS: ASPIRIN 325 MG TAB PO SCH (08:22)
[2022-08-03] MEDS: FUROSEMIDE 20 MG/ 2ML VIAL IV SCH ×2 (08:22→17:25)
[2022-08-03] MEDS: carvediloL 3.125 MG TAB PO SCH ×2 (08:23→20:12)
[2022-08-03] MEDS: ENOXAPARIN 40 MG/0.4 ML SQ SCH (08:23)
--- NOTE | 2022-08-03 13:51 | P.CNS ---
Date of Consult: 08/03/22 Reason for Consult: Renal failure Requesting Physician: Lorenzo Sultana Chief Complaint: shortness of breath History of Present Illness: 86M w/ PMHx of Htn, HLD, CAD s/p LA s/p CABG in 1993, afib s/p watchman, chronic systolic HF s/p AICD/PPM, DM2, & pneumonia who p/w a 3 wk hx of SOB, admitted for acute on chronic CHF, referred to Nephrology for BRANDEE. Reports he stopped taking his lasix at home. Baseline SCr 1.0 in Apr 2022. SCr 1.4 on adm, at 1.5 today. Urinalysis unremarkable. Urine chem non-prerenal. Allergies Sulfa (Sulfonamide Antibiotics) [Sulfa(Sulfonamide Antibiotics)] Allergy (Mild, Verified 08/01/22 22:32) Nausea/Vomiting Home Medications: Aspirin 325 mg PO DAILY 04/08/22 Carvedilol [Coreg] 1 tab PO BID 04/08/22 Docusate [Colace Cap*] 1 cap PO BID 04/08/22 Glimepiride 1 mg PO DAILY 04/08/22 Lovastatin 40 mg PO BEDTIME 04/08/22 Omeprazole [Prilosec] 40 mg PO DAILY 04/08/22 Ranolazine [Ranexa] 500 mg PO BID 04/08/22 Furosemide [Lasix] 20 mg PO DAILY 30 Days #30 tab 04/11/22 - Past Medical/Surgical History Diabetic: Yes -: HTN -: DM -: LA x3 -: PNeumonia -: CAD -: cardiac watchman -: Hyperlipidemia -: CHF -: AFIB -: Cataract sx -: appy -: bilat shoulder sx -: defib/pacemaker placement -: Bypass 1993 -: hemorroidectomy Psychosocial/ Personal History: Patient lives at home, alone - Family History Mother Medical History: Heart disease Father Medical History: Other (see notes) Notes: stroke oldest brother Medical History: Other (see notes) Notes: heart attack - Social History Smoking Status: Unknown if ever smoked Alcohol use: No CD- Drugs: No Caffeine use: Yes Review of Systems General: Weakness Eyes: Unremarkable ENT: Unremarkable Respiratory: Shortness of Breath, SOB with Excertion Cardiovascular: Unremarkable Gastrointestinal: Unremarkable Genitourinary: Unremarkable Musculoskeletal: Pedal edema Integumentary: Unremarkable Neurological: Unremarkable Lymphatics: Unremarkable Physical Examination Temp Pulse Resp BP Pulse Ox 98.5 F 69 14 122/56 L 100 08/03/22 12:00 08/03/22 12:00 08/03/22 12:00 08/03/22 12:00 08/03/22 12:00 General: Other (Appears as his stated age) HEENT: Atraumatic, Normocephalic Neck: Supple Respiratory: Other (Symmetric chest expansion) Cardiovascular: No rubs, No murmurs Gastrointestinal: Soft and benign Musculoskeletal: Swelling Neurological: Normal speech, Normal tone Urinary: Other (No bladder distention) External genitalia: Deferred Rectal: Deferred Laboratory Data (last 24 hrs) 08/03/22 05:58: Sodium 139, Potassium 4.4, BUN 71 H, Creatinine 1.50 H, Glucose 113 H, Magnesium 2.3 08/03/22 05:58: WBC 10.70, Hgb 10.7 L, Hct 31.3 L, Plt Count 175 Conclusions/Impression: # BRANDEE 2/2 CRS1 SCr 1.4 on adm, at 1.5 today Baseline SCr 1.0 in Apr 2022 Urinalysis unremarkable Urine chem non-prerenal Cont IV lasix [place] po fluid intake # Acute on chronic systolic HF s/p AICD/PPM TTE in Apr 2022 showed LVEF 37% Chest CT in Apr 2022 showed no clear e/o pulmo Htn Lasix IV bid # Hx of HLD, CAD s/p LA s/p CABG in 1993, afib s/p watchman Cont cardioprudent meds # Htn BP low normal BP meds adjusted #DM2 Mngt per primary team
--- NOTE | 2022-08-03 14:53 | P.PN ---
Date of Service: 08/03/22 Subjective: no acute events overnight feeling better but hasn't ambulated out of bed ROS: 10 point ROS as noted above, otherwise negative Physical exam GEN: Alert, oriented, NAD HEENT: Normal conjunctiva, sclera anicteric CV: Regular rate and rhythm, trace pedal edema Pulm: b/l crackles at bases, mild labored respirations on 3 LNC ABD: Soft, nontender, nondistended Neuro: Normal speech, normal affect Problem list Acute hypoxemic respiratory failure secondary to acute on chronic systolic CHF exacerbation Generalized weakness History of atrial fibrillation status post watchman procedure CAD status post CABG NIDDM 2 Hypertension Hyperlipidemia Pacemaker with defibrillator volume overloaded CXR: suspected bilateral pleural effusions, and chronic interstitial changes trop elevated - suspect due to demand ischemia, in setting of pulmonary edema/volume overload trop trended up initially, cardio consulted denies chest pain He has not been taking Lasix for the last month, was admitted few months ago for similar presentation 9, improved with Lasix Received 20 mg IV Lasix in ED, continue on 20 mg IV twice daily Lasix CXR appears slightly more congested, Cr increasing albumin x1 given 08/03 AM nephrology consulted Has home oxygen and support at home Patient also reports a slowly progressive difficulty with swallowing certain consistencies for the last few years, seems more pronounced over the last several months Is already working on getting an outpatient swallow evaluation this coming week Dysphagia diet ordered, does not appear to have aspiration pneumonia at this time Monitor for aspiration, aspiration precautions VTE: Lovenox Code: DNR Dispo: Home, 1-2 days Time Spent Managing Pts Care (In Minutes): 35
[2022-08-03 16:13] LABS: UR PROTEIN 13.8 mg/dL (<11.9); Urine Protein/Creatinine Ratio 0.58 ratio (<0.15)
[2022-08-03] MEDS: ATORVASTATIN 40 MG TAB PO SCH (20:12)
[2022-08-04 04:00] LABS: MCV 107.8 fL (80-100); MPV 7.7 fL (7.6-11.3); RBC Red Blood Cell Count 2.69 M/uL (4.33-5.43)
[2022-08-04 04:18] LABS: Magnesium 2.2 mg/dL (1.8-2.4); Potassium 4.2 mmol/L (3.5-5.1)
[2022-08-04 08:22] VITALS: BP 119/56; TEMP 97.3
[2022-08-04] MEDS: ENOXAPARIN 40 MG/0.4 ML SQ SCH (08:37)
[2022-08-04] MEDS: carvediloL 3.125 MG TAB PO SCH (08:37)
[2022-08-04] MEDS: DOCUSATE NA 100 MG CAP PO SCH (08:37)
[2022-08-04] MEDS: ASPIRIN 325 MG TAB PO SCH (08:37)
[2022-08-04] MEDS: FUROSEMIDE 20 MG/ 2ML VIAL IV SCH (08:38)
--- NOTE | 2022-08-04 09:01 | P.DS ---
Admission Date: 08/01/22 Discharge Date: 08/04/22 Disposition: DC HOME/HOME HEALTH CARE Reason for Admission: shortness of breath Consultations: Cardiology - Dr. Cohen Nephrology - Dr. Asher Brief History of Present Illness: 86yo M, presents with SOB/SELBY over the last 2-3 weeks. He was last admitted a few months ago for CHF exacerbation. He stopped taking Lasix ~1 month ago. No other changes in medications, no recent infection, no fever/chills, no diarrhea. Denies any significant leg swelling, but states he typically doesn't get leg swelling, fluid just goes to his lungs. In the ED, workup noted elevated troponin, BNP, and CXR with concern for CHF. He took one dose of his lasix today - which is first dose in ~1 month. Hospital Course: Problem list Acute hypoxemic respiratory failure secondary to acute on chronic systolic CHF exacerbation Generalized weakness History of atrial fibrillation status post watchman procedure CAD status post CABG NIDDM 2 Hypertension Hyperlipidemia Pacemaker with defibrillator Patient presented with shortness of breath. He was found to be in acute on chronic CHF exacerbation due to not taking lasix for ~1 month. He had improvement of his symptoms with lasix while hospitalized. His renal function briefly increased, then improved with continued lasix. Recommend continuing with daily 20mg lasix as previously prescribed. Monitor daily weights and blood pressure. Follow up with PCP within 1 week for further adjustments to lasix. Speech pathology was consulted and performed bedside evaluation. Noted signs of aspiration with water. Recommended thickened water / liquids, which patient tolerated well. Continue with thickened water/liquids at home. 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 Vital Signs/Physical Exam: Temp Pulse Resp BP Pulse Ox 97.3 F 70 14 119/56 L 100 08/04/22 08:00 08/04/22 08:38 08/04/22 08:00 08/04/22 08:38 08/04/22 08:00 Physical exam GEN: Alert, oriented, NAD HEENT: Normal conjunctiva, sclera anicteric CV: Regular rate and rhythm, trace pedal edema Pulm: b/l crackles at bases, non-labored respirations on 3 LNC ABD: Soft, nontender, nondistended Neuro: Normal speech, normal affect Laboratory Data at Discharge: WBC 8.40 K/uL (4.3-10.9) 08/04/22 03:08 Hgb 9.6 g/dL (13.6-17.9) L D 08/04/22 03:08 Hct 29.0 % (39.6-49.0) L 08/04/22 03:08 Plt Count 169 K/uL (152-406) 08/04/22 03:08 PT 15.2 SECONDS (9.5-12.5) H 08/01/22 11:37 INR 1.38 08/01/22 11:37 Sodium 141 mmol/L (136-145) 08/04/22 03:08 Potassium 4.2 mmol/L (3.5-5.1) 08/04/22 03:08 BUN 72 mg/dL (7-18) H 08/04/22 03:08 Creatinine 1.25 mg/dL (0.55-1.3) 08/04/22 03:08 Glucose 109 mg/dL (74-106) H 08/04/22 03:08 Magnesium 2.2 mg/dL (1.8-2.4) 08/04/22 03:08 Total Bilirubin 0.6 mg/dL (0.2-1.0) 08/02/22 03:04 AST 16 U/L (15-37) 08/02/22 03:04 ALT 26 U/L (12-78) 08/02/22 03:04 Alkaline Phosphatase 87 U/L (45-117) 08/02/22 03:04 Lipase 287 U/L (73-393) 08/01/22 11:37 Home Medications: Aspirin 325 mg PO DAILY 04/08/22 Carvedilol [Coreg] 1 tab PO BID 04/08/22 Docusate [Colace Cap*] 1 cap PO BID 04/08/22 Glimepiride 1 mg PO DAILY 04/08/22 Lovastatin 40 mg PO BEDTIME 04/08/22 Omeprazole [Prilosec] 40 mg PO DAILY 04/08/22 Ranolazine [Ranexa] 500 mg PO BID 04/08/22 Furosemide [Lasix] 20 mg PO DAILY 30 Days #30 tab 04/11/22 Physician Discharge Instructions: Patient presented with shortness of breath. He was found to be in acute on chronic CHF exacerbation due to not taking lasix for ~1 month. He had improvement of his symptoms with lasix while hospitalized. His renal function briefly increased, then improved with continued lasix. Recommend continuing with daily 20mg lasix as previously prescribed. Monitor daily weights and blood pressure. Follow up with PCP within 1 week for further adjustments to lasix. Speech pathology was consulted and performed bedside evaluation. Noted signs of aspiration with water. Recommended thin water / liquids. Continue with thin water/liquids at home. Followup: NONE,NONE [Primary Care Provider] - 1 Week (Call to schedule an appointment) Time spent managing pt's care (in minutes): 45
[2022-08-04 09:53] VITALS: O2SAT 100
--- NOTE | 2022-08-04 11:29 | RAD REPORT ---
EXAM DESCRIPTION: RAD - Barium Swallow Modified - 08/04/2022 10:58 am CLINICAL HISTORY: aspiration dysphagia COMPARISON: Abdomen Pelvis W Contrast dated 07/17/2021 TECHNIQUE: The patient was given liquid, semi-solid and solid forms of barium. Lateral view fluorosc opic imaging was performed in conjunction with speech pathology service. FINDINGS: Laryngeal penetration: not cleared Aspiration: cough with thin, nectar, honey (cough ineffective) Pharyngeal residue: vallecular, pyriform Other: reduced hyolaryngeal excursion, swallow delay, reduced base of tongue contraction, incomplete epiglottic inversion Total fluoroscopy time: 2 minutes 57 seconds
--- NOTE | 2022-08-04 12:56 | EKG ---
Test Date: 2022-08-01 Test Time: 11:35:34 [employer] Pet[employer] Operator: YAYA MEASUREMENT RESULTS: Intervals: Rate: 70 IA: QRSD: 200 QT: 490 QTc: 529 Buckner: P: IA: QRS: 165 T: 2 INTERPRETIVE STATEMENTS: Ventricular-paced rhythm Abnormal ECG Compared to ECG 04/09/2022 02:58:12 Atrial fibrillation no longer present Ventricular premature complex(es) no longer present Left-axis deviation no longer present Incomplete right bundle-branch block no longer present ST (T wave) deviation no longer present Possible ischemia no longer present Electronically Signed On 08-04-22 12:51:51 [employer] by Gary Cohen
--- NOTE | 2022-08-04 20:21 | CON ---
Date of Consultation: 08/03/2022 Reason For Consultation: Heart failure exacerbation and shortness of breath. History Of Present Illness: This 86-year-old male with past medical history of hypertension, diabete s, coronary artery disease, and congestive heart failure presented with worsening shortness of breath for 2-3 weeks prior to admission with lower extremity edema and orthopnea. No nausea, vomiting, or diarrhea. No chest pain. Past Medical History: As outlined above in the HPI. Medications: Refer to reconciliation sheet for detailed list. Allergies: SULFA. Family History: No premature coronary artery disease or cancer. Social History: Does not smoke or drink. Does not use any drugs. Review of Systems: All systems reviewed and are negative except for what is mentioned in HPI. Physical Examination: Vital Signs: Reviewed. Head And Neck: Pupils are equal and reactive to light. Intact eye movements. No JVD. No cervical lymphadenopathy. Neck is supple. Thyroid is not enlarged. Lungs: Decreased breathing sounds. No accessory muscle use or muscle retraction. Heart: Regular rate and rhythm. No extra sounds. Abdomen: Soft, nontender. Bowel sounds positive. No organomegaly. No masses or hernia. No rigidi ty or rebound. Extremities: No edema, clubbing, or cyanosis. Intact pulses. Skin: No rash. Neuro: Alert, awake, and oriented x3. No acute focal deficits appreciated. Investigations: BUN 71 and creatinine is 1.5. Troponin is 86, which is trending down. Assessment And Recommendation: 1.Elevated troponin. This is likely demand ischemia. Patient is asymptomatic without any chest sherlyn n, known to have low ejection fraction with ICD in place. BUN and creatinine are rising so discontin ue diuretics. Reassess tomorrow morning and resume on oral Lasix, if BUN and creatinine improve. No plan for cardiac stress test as an outpatient. 2.Qloph-dz-ydvqdvg systolic heart failure exacerbation, improved clinically very well. Hold Lasix. Reassess BUN, creatinine, and electrolytes tomorrow and re-dose Lasix upon discharge. SR/MODL Voice ID: [id number] Report ID: [id number]
--- NOTE | 2022-08-04 23:57 | PN ---
Date of Progress Note: 08/04/2022 Chief Complaint: Abnormal renal function tests, chronic kidney disease, and acute kidney injury. Subjective: Patient is an 86-year-old man with history of coronary artery disease status post CABG i n 1993, hypertension, hyperlipidemia, atrial fibrillation, chronic diastolic congestive heart failure status post AICD PPM, diabetes mellitus, and history of pneumonia who came to the hospital because o f shortness of breath. He has chronic congestive heart failure and chronic cardiorenal syndrome. Mihai yo reports he stopped taking Lasix at home. Baseline creatinine level was 1.0 back in April 2022 . The patient on admission was found to have elevated creatinine and creatinine level yesterday was up to 1.5. Review of Systems: Denies fever or chills. Physical Examination: Lungs: Clear to auscultation bilaterally. Heart: S1, S2. Abdomen: Soft. Extremities: Slight edema present. Impression And Plan: 1.Rhctn-uj-bypxirz kidney injury due to cardiorenal syndrome. Patient will continue diuretics. The patient will continue p.o. hydration. Monitor electrolytes closely. Urine chemistry showed prerena l pattern of acute kidney injury. The patient will continue IV Lasix for xfypp-kz-idfjftj systolic c ongestive heart failure. Patient previously had echo done, which showed ejection fraction of 37%. T he patient will continue Lasix 40 mg IV twice a day and then he will take p.o. Lasix for maintenance. 2.Hypertension. Blood pressure controlled. 3.Diabetes mellitus, per Primary Team. Avoid metformin. 4.Ylfdh-za-egqotid kidney injury secondary to cardiorenal syndrome and prerenal azotemia. Continue by mouth hydration. Continue diuretics for congestive heart failure. Today creatinine level is 1.2 and BUN is 72. There is high BUN and creatinine ratio, which is secondary to cardiorenal syndrome. 5.Elevated troponin level, per Primary Team and Cardiology. EB/MODL Voice ID: [id number] Report ID: [id number]
== END 2022-08-04 11:45 | disposition home health service (06) | DRG 291 ==
LOC: ER 10:00 → ERHOLD 14:32 → 2ND 18:28 → OBSVTOIN 08-03 11:00
PROVIDERS: ADMIT Hospitalist; ATTEND Hospitalist
DX: I11.0 Hypertensive heart disease with heart failure (principal); I50.23 Acute on chronic systolic (congestive) heart failure; J96.01 Acute respiratory failure with hypoxia; E87.20 Acidosis, unspecified; N17.9 Acute kidney failure, unspecified; E78.5 Hyperlipidemia, unspecified; E11.65 Type 2 diabetes mellitus with hyperglycemia; I48.91 Unspecified atrial fibrillation; I25.10 Atherosclerotic heart disease of native coronary artery without angina pectoris; I25.2 Old myocardial infarction; R77.8 Other specified abnormalities of plasma proteins; Z88.1 Allergy status to other antibiotic agents; Z60.2 Problems related to living alone; Z79.82 Long term (current) use of aspirin; Z79.84 Long term (current) use of oral hypoglycemic drugs; Z79.899 Other long term (current) drug therapy; Z95.810 Presence of automatic (implantable) cardiac defibrillator; Z20.822 Contact with and (suspected) exposure to COVID-19
CPT/HCPCS: 0240U; 36415; 71045; 74230; 80048; 80053; 80076; 81003; 82553; 82570; 82805; 83605; 83690; 83735; 83880; 83935; 84132; 84156; 84300; 84484; 85025; 85027; 85610; 87040; 92611; 93005; 94760; 96374; 96375; 99285; G0378; J1650; J1940; J2930; J7614; J7644; P9047

== ENCOUNTER 2022-08-11 06:01 | Inpatient (IN) | payer OTHER, MEDICARE ==
[2022-08-11] MEDS ORDERED: FUROSEMIDE 40 MG/4 ML VIAL ONE (07:14)
[2022-08-11 07:16] LABS: Absolute Lymphocytes (CBC) 0.4 K/uL (0.7-4.9); Hematocrit 37.4 % (39.6-49.0); MCV 109.3 fL (80-100); MPV 8.2 fL (7.6-11.3); RBC Red Blood Cell Count 3.42 M/uL (4.33-5.43)
--- NOTE | 2022-08-11 08:00 | ER ---
Nurse's Notes [facility] Name: Екатерина Hare Age: 86 yrs Sex: Male : 1935 Arrival Date: 08/11/2022 Time: 06:12 Bed 7 Private MD: Diagnosis: Heart failure, unspecified Presentation: 08/11 06:20 Chief complaint: EMS states: 86 year old male called EMS because he was having some ha1 shortness of breath. when we arrived his oxygen saturation was at 81 in room air. we put him in a nonrebreather and his oxygen saturation has been at 100%. Ebola Screen: No symptoms or risks identified at this time. Initial Sepsis Screen: Does the patient meet any 2 criteria? No. Patient's initial sepsis screen is negative. Does the patient have a suspected source of infection? No. Patient's initial sepsis screen is negative. Risk Assessment: Do you want to hurt yourself or someone else? Patient reports no desire to harm self or others. Onset of symptoms was August 11, 2022. 06:20 Method Of Arrival: EMS: [facility] ha1 06:20 Acuity: NICOLE 3 ha1 13:25 Coronavirus screen: At this time, the client does not indicate any symptoms associated bp with coronavirus-19. Triage Assessment: 06:25 General: Appears uncomfortable, Behavior is cooperative. Pain: Denies pain. EENT: No ha1 deficits noted. No signs and/or symptoms were reported regarding the EENT system. Neuro: Level of Consciousness is awake, alert, obeys commands, Oriented to person, place, time, situation. Cardiovascular: Heart tones S1 S2 Capillary refill < 3 seconds Patient's skin is warm and dry. Respiratory: Airway is patent Trachea midline Respiratory effort is even, unlabored, Respiratory pattern is regular, symmetrical. Respiratory: Reports shortness of breath at rest. GI: No signs and/or symptoms were reported involving the gastrointestinal system. : No signs and/or symptoms were reported regarding the genitourinary system. Derm: Bruising that is dark purple, on right leg. Musculoskeletal: Circulation, motion, and sensation intact. Historical: - Allergies: 06:25 Sulfa (Sulfonamide Antibiotics); ha1 - PMHx: 06:25 Atrial Fib; CHF; defibrilllator; Hypertension; Pacemaker; Diabetes - NIDDM; ha1 Hyperlipidemia; Myocardial infarction; - Immunization history:: Adult Immunizations up to date, Client reports receiving the 2nd dose of the Covid vaccine, moderna. - Social history:: Smoking status: unknown. - Family history:: not pertinent. Screenin:30 Abuse screen: Denies threats or abuse. Denies injuries from another. Nutritional ha1 screening: No deficits noted. Tuberculosis screening: No symptoms or risk factors identified. Fall Risk IV access (20 points). Gait- Weak (10 pts.). Total Will Fall Scale indicates Low Risk Score (25-44 pts). Fall prevention measures have been instituted. Side Rails Up X 2 Placed close to Nursing Station Frequent Obs/Assesments occuring Family Present and informed to notify staff if they need to leave bedside As available Patient and Family Educated on Fall Prevention Program and strategies. Assessment: 06:12 General: see triage. ha1 07:00 Reassessment: RECD REPORT FROM LINDA ALEXIS. 86YO WM P/W SOB, DISPO PENDING. bp 09:00 Reassessment: ADMIT INITIATED FOR CHF EXACERBATION. bp 11:00 Reassessment: No changes from previously documented assessment. Patient and/or family bp updated on plan of care and expected duration. Pain level reassessed. Vital Signs: 06:12 BP 124 / 66; Pulse 84; Resp 21 S; Pulse Ox 98% on 6 lpm NC; ha1 06:20 BP 124 / 66; Pulse 84; Resp 21 S; Pulse Ox 98% on 6 lpm NC; Weight 63.5 kg; Height 5 ha1 ft. 9 in. (175.26 cm); 07:15 BP 129 / 71; Pulse 78; Resp 21; Temp 97.3; Pulse Ox 100% ; bp 09:00 BP 141 / 82; Pulse 83; Resp 24; Pulse Ox 99% on 2 lpm NC; bp 11:00 BP 147 / 73; Pulse 92; Resp 28; Pulse Ox 95% on 2 lpm NC; bp 06:20 Body Mass Index 20.67 (63.50 kg, 175.26 cm) ha1 ED Course: 06:12 Patient arrived in ED. vc1 06:14 Daniel Wilson MD is Attending Physician. rt 06:20 Linda Harrell, REUBEN is Primary Nurse. ha1 06:25 Triage completed. ha1 06:25 Arm band placed on. ha1 06:31 Patient has correct armband on for positive identification. Placed in gown. Bed in low ha1 position. Call light in reach. Side rails up X 1. Adult w/ patient. 06:38 Chest Single View XRAY In Process Unspecified. EDMS 06:40 Missed attempt(s): 24 gauge in right forearm. vc1 06:47 Missed attempt(s): 24 gauge Bleeding controlled, band aid applied, catheter tip intact. vc1 07:08 Inserted saline lock: 24 gauge in left forearm, using aseptic technique. Blood oe collected. 07:22 Attending Physician role handed off by Daniel Wilson MD kdr 07:22 Giovanni Treviño MD is Attending Physician. kdr 07:59 Nova Allen MD is Hospitalizing Provider. kdr 08:39 Primary Nurse role handed off by Linda Harrell RN bd 08:49 Sergio Elliott is Hospitalizing Provider. kdr 12:00 No provider procedures requiring assistance completed. Patient admitted, IV remains in bp place. 12:08 Alex Arias, RN is Primary Nurse. bp Administered Medications: 07:00 Drug: Lasix (furosemide) 40 mg Route: IVP; Site: left forearm; ha1 12:35 Follow up: Response: No adverse reaction bp Medication: 12:33 VIS not applicable for this client. bp Outcome: 07:59 Decision to Hospitalize by Provider. kdr 13:20 Condition: stable bp 13:20 Instructed on the need for admit. 13:25 Admitted to Med/surg accompanied by tech, via stretcher, room 431, with chart, Report bp called to KATERYNA ALEXIS 14:20 Patient left the ED. bp Signatures: Dispatcher [employer] EDMS Carmela Coleman bd Giovanni Treviño MD MD kdr Sousa, Dennis oe Alex Arias RN RN bp Ivett Mehta RN RN vc1 Linda Harrell RN RN ha1 Daniel Wilson MD MD rt Corrections: (The following items were deleted from the chart) 12:12 07:15 BP 129 / 71; Pulse 78bpm; Resp 21bpm; Pulse Ox 100%; ha1 bp
--- NOTE | 2022-08-11 08:00 | EDPHYS ---
Physician Documentation [facility] Name: Екатерина Hare Age: 86 yrs Sex: Male : 1935 Arrival Date: 08/11/2022 Time: 06:12 Bed 7 Private MD: ED Physician Giovanni Treviño HPI: 08/11 06:44 This 86 yrs old Male presents to ER via EMS with complaints of Dyspnea. rt 06:44 The patient has shortness of breath at rest. Onset: The symptoms/episode began/occurred rt 2 day(s) ago. Duration: The symptoms are continuous. The patient's shortness of breath is aggravated by supine position, is alleviated by application of supplemental oxygen. Associated signs and symptoms: The patient has no apparent associated signs or symptoms. Patient presents to the ED with dyspnea. Of note, he was in the hospital about a week ago for a CHF exacerbation. Patient states that his breathing has continued to worsen. Patient states that 2 days ago, his defib fired, he did not seek medical care at that time. He is unclear what brand device he has. The patient continues to be very dyspneic. Was found to have an oxygen saturation of 80% on room air, improving with nonrebreather. Denies chest pain, other acute complaints at this time, symptoms are severe in severity, no other aggravating or alleviating factors.. Historical: - Allergies: 06:25 Sulfa (Sulfonamide Antibiotics); ha1 - PMHx: 06:25 Atrial Fib; CHF; defibrilllator; Hypertension; Pacemaker; Diabetes - NIDDM; ha1 Hyperlipidemia; Myocardial infarction; - Immunization history:: Adult Immunizations up to date, Client reports receiving the 2nd dose of the Covid vaccine, moderna. - Social history:: Smoking status: unknown. - Family history:: not pertinent. ROS: 06:44 Constitutional: Negative for fever, chills, and weight loss, Eyes: Negative for injury, rt pain, redness, and discharge, ENT: Negative for injury, pain, and discharge, Cardiovascular: Negative for chest pain, palpitations, and edema, Abdomen/GI: Negative for abdominal pain, nausea, vomiting, diarrhea, and constipation, Back: Negative for injury and pain, MS/Extremity: Negative for injury and deformity, Skin: Negative for injury, rash, and discoloration, Neuro: Negative for headache, weakness, numbness, tingling, and seizure, Psych: Negative for depression, anxiety, suicide ideation, homicidal ideation, and hallucinations. 06:44 Respiratory: Positive for cough, shortness of breath. Exam: 06:44 Constitutional: This is a well developed, well nourished patient who is awake, alert, rt and in no acute distress. Head/Face: Normocephalic, atraumatic. Eyes: Pupils equal round and reactive to light, extra-ocular motions intact. Lids and lashes normal. Conjunctiva and sclera are non-icteric and not injected. Cornea within normal limits. Periorbital areas with no swelling, redness, or edema. ENT: Nares patent. No nasal discharge, no septal abnormalities noted. Tympanic membranes are normal and external auditory canals are clear. Oropharynx with no redness, swelling, or masses, exudates, or evidence of obstruction, uvula midline. Mucous membranes moist. Chest/axilla: Normal chest wall appearance and motion. Nontender with no deformity. No lesions are appreciated. Cardiovascular: Regular rate and rhythm with a normal S1 and S2. No gallops, murmurs, or rubs. Normal PMI, no JVD. No pulse deficits. Abdomen/GI: Soft, non-tender, with normal bowel sounds. No distension or tympany. No guarding or rebound. No evidence of tenderness throughout. Back: No spinal tenderness. No costovertebral tenderness. Full range of motion. Skin: Warm, dry with normal turgor. Normal color with no rashes, no lesions, and no evidence of cellulitis. MS/ Extremity: Pulses equal, no cyanosis. Neurovascular intact. Full, normal range of motion. Neuro: Awake and alert, GCS 15, oriented to person, place, time, and situation. Cranial nerves II-XII grossly intact. Motor strength 5/5 in all extremities. Sensory grossly intact. Cerebellar exam normal. Normal gait. Psych: Awake, alert, with orientation to person, place and time. Behavior, mood, and affect are within normal limits. 06:44 Respiratory: Crackles heard on all lung webb, no respiratory distress. 09:00 ECG was reviewed by the Attending Physician. kdr Vital Signs: 06:12 BP 124 / 66; Pulse 84; Resp 21 S; Pulse Ox 98% on 6 lpm NC; ha1 06:20 BP 124 / 66; Pulse 84; Resp 21 S; Pulse Ox 98% on 6 lpm NC; Weight 63.5 kg; Height 5 ha1 ft. 9 in. (175.26 cm); 07:15 BP 129 / 71; Pulse 78; Resp 21; Temp 97.3; Pulse Ox 100% ; bp 09:00 BP 141 / 82; Pulse 83; Resp 24; Pulse Ox 99% on 2 lpm NC; bp 11:00 BP 147 / 73; Pulse 92; Resp 28; Pulse Ox 95% on 2 lpm NC; bp 06:20 Body Mass Index 20.67 (63.50 kg, 175.26 cm) ha1 MDM: 06:15 Patient medically screened. rt 08:00 Differential diagnosis: Anemia Bronchitis CHF exacerbation, Myocardial Infarction kdr pneumonia, reactive airway disease, Sepsis. Data reviewed: vital signs, nurses notes, lab test result(s), EKG, radiologic studies. Counseling: I had a detailed discussion with the patient and/or guardian regarding: the historical points, exam findings, and any diagnostic results supporting the discharge/admit diagnosis, lab results, radiology results, the need for further work-up and treatment in the hospital. 08/11 06:15 Order name: CBC with Diff; Complete Time: 16:20 rt 08/11 06:15 Order name: CMP; Complete Time: 08:09 rt 08/11 06:15 Order name: BNP; Complete Time: 08:09 rt 08/11 06:15 Order name: Troponin High Sensitivity; Complete Time: 08:09 rt 08/11 08:21 Order name: NT PRO-BNP EDIA 08/11 08:21 Order name: NT PRO-BNP EDIA 08/11 08:21 Order name: Troponin High Sensitivity EDIA 08/11 08:21 Order name: Troponin High Sensitivity; Complete Time: 16:20 EDMS 08/11 08:21 Order name: Troponin High Sensitivity EDIA 08/11 08:22 Order name: SARS-COV-2 Antigen Rapid bd 08/11 08:24 Order name: Magnesium; Complete Time: 16:20 EDMS 08/11 08:24 Order name: Phosphorus; Complete Time: 16:20 EDMS 08/11 08:24 Order name: T4 Free; Complete Time: 16:20 EDMS 08/11 08:24 Order name: Thyroid Stimulating Hormone; Complete Time: 16:20 EDMS 08/11 06:15 Order name: EKG; Complete Time: 06:15 rt 08/11 06:15 Order name: EKG - Nurse/Tech; Complete Time: 07:00 rt 08/11 06:15 Order name: Chest Single View XRAY; Complete Time: 16:20 rt 08/11 08:24 Order name: 60g Consistent Carbohydrate (ADA 1800/2000) EDMS 08/11 08:24 Order name: Urinalysis EDMS 08/11 08:24 Order name: Basic Metabolic Panel EDMS 08/11 08:24 Order name: Basic Metabolic Panel EDMS 08/11 08:24 Order name: CBC with Automated Diff EDMS 08/11 08:24 Order name: CBC with Automated Diff EDMS 08/11 08:33 Order name: CBC Smear Scan; Complete Time: 16:20 EDMS 08/11 11:56 Order name: SARS-COV-2 Antigen Rapid; Complete Time: 16:20 EDMS EC:00 Rate is 74 beats/min. Rhythm is regular, Paced with No ectopy. QRS [place] is Normal. kdr Clinical impression: No evidence of ischemia and Paced. Administered Medications: 07:00 Drug: Lasix (furosemide) 40 mg Route: IVP; Site: left forearm; ha 12:35 Follow up: Response: No adverse reaction bp Disposition Summary: 08/11/22 07:59 Hospitalization Ordered Hospitalization Status: Observation kdr Condition: Fair kdr Problem: an acute exacerbation kdr Symptoms: have improved kdr Bed/Room Type: Standard kdr Provider: Sergio Elliott(08/11/22 08:49) kdr Location: Telemetry/MedSurg (observation)(08/11/22 12:33) bd Room Assignment: 431(08/11/22 12:40) dw Diagnosis - Heart failure, unspecified kdr Forms: - Medication Reconciliation Form kdr - SBAR form kdr Signatures: Dispatcher [employer] EDMS Carmela Coleman bd Josseline Ly RN RN dw Rittger, Kevin, MD MD kdr Hollie Espinosa RN RN ss Sonya Harrell RN RN ha1 Daniel Wilson MD MD rt Alex Arias RN bp Corrections: (The following items were deleted from the chart) 08:49 07:59 Nova Allen kdr kdr 12:29 07:59 Telemetry/MedSurg (observation) kdr ss 07:59 kdr ss 12: BR ER HOLD ss bd : ERHOLD- ss bd 12: 12:33 408 bd dw
[2022-08-11 08:02] LABS: Albumin 3.5 g/dL (3.4-5.0); Potassium 4.8 mmol/L (3.5-5.1); Protein, Total 8.6 g/dL (6.4-8.2)
[2022-08-11 08:04] LABS: Troponin High Sensitivity 66.2 pg/mL (<58.9)
--- NOTE | 2022-08-11 08:12 | RAD REPORT ---
EXAM DESCRIPTION: RAD - Chest Single View - 08/11/2022 6:36 am CLINICAL HISTORY: DYSPNEA COMPARISON: Portable 08/03/2022 TECHNIQUE: AP portable chest image was obtained 08/11/2022 6:36 am . FINDINGS: Patient has a baseline prominent interstitial opacification with innumerable punctate gran ulomatous type calcifications throughout both lung webb. There is superimposed increased interstiti al thickening and scattered alveolar opacities. Each hemidiaphragm is partially obscured. Pattern is similar or slightly worse than the pulmonary edema pattern seen on August 03 imaging. Pacemaker is in place. Sternotomy wires are noted. Heart and vasculature are normal. No pneumothorax or large pleural effusion. No acute bony abnormality seen. No acute aortic findings suspected. IMPRESSION: Pulmonary edema pattern superimposed on chronic lung disease.
[2022-08-11] MEDS ORDERED: ACETAMINOPHEN 325 MG TABLET PO PRN (08:16)
[2022-08-11] MEDS ORDERED: HYDROCODONE/APAP 5/325 MG TAB PO PRN (08:16)
[2022-08-11] MEDS ORDERED: ONDANSETRON 4 MG/2 ML VIAL IV PRN (08:20)
[2022-08-11 08:33] LABS: Blood Morphology Comment NOTED (NOT SEEN); Macrocytosis 1+; Platelet Estimate ADEQ; White Blood Cell Scan OK (OK)
[2022-08-11] MEDS ORDERED: carvediloL 3.125 MG TAB PO SCH (09:00)
[2022-08-11] MEDS ORDERED: PANTOPRAZOLE 40MG TABLET PO SCH (09:00)
[2022-08-11] MEDS ORDERED: ASPIRIN 81 MG CHEWABLE TABLET PO ONE (09:00)
[2022-08-11] MEDS ORDERED: DOCUSATE NA 100 MG CAP PO SCH (09:00)
[2022-08-11] MEDS ORDERED: RANOLAZINE 1000 MG PO SCH (09:00)
[2022-08-11] MEDS: FUROSEMIDE 40 MG/4 ML VIAL IV SCH ×2 (09:00→16:22)
[2022-08-11] MEDS ORDERED: HEPARIN 5000 UNIT/ML 1 ML VIAL SQ SCH (09:00)
--- NOTE | 2022-08-11 09:09 | P.HP ---
Certification for Inpatient Patient admitted to: Inpatient With expected LOS: >2 Midnights Patient will require the following post-hospital care: None Practitioner: I am a practitioner with admitting privileges, knowledge of patient current condition, hospital course, and medical plan of care. Services: Services provided to patient in accordance with Admission requirements found in Title 42 Section 412.3 of the Code of Federal Regulations Patient History Date of Service: 08/11/22 Reason for admission: CHF exacerbation History of Present Illness: Patient is an 86-year-old male with a past medical history significant for hypertension, DM 2, CA, CAD, HLD, CHF, atrial fibrillation who presents with complaint of shortness of breath. Patient has been experiencing shortness of breath for the past couple of days but symptoms became worse yesterday. Patient reported associated signs and symptoms of cough, orthopnea and chest congestion. Patient reported that he has not had a bowel movement in 12 days. Patient denies any other signs and symptoms. Symptoms are aggravated by exertion and relieved by nothing. Patient decided to present to the hospital due to worsening symptoms. Of note, patient was seen at the hospital a week ago for similar symptoms and patient also complained that his defibrillator fired a couple of days ago. Allergies Sulfa (Sulfonamide Antibiotics) [Sulfa(Sulfonamide Antibiotics)] Allergy (Mild, Verified 08/01/22 22:32) Nausea/Vomiting Home Medications: Aspirin 325 mg PO DAILY 04/08/22 Carvedilol [Coreg] 1 tab PO BID 04/08/22 Docusate [Colace Cap*] 1 cap PO BID 04/08/22 Glimepiride 1 mg PO DAILY 04/08/22 Lovastatin 40 mg PO BEDTIME 04/08/22 Omeprazole [Prilosec] 40 mg PO DAILY 04/08/22 Ranolazine [Ranexa] 500 mg PO BID 04/08/22 Furosemide [Lasix] 20 mg PO DAILY 30 Days #30 tab 04/11/22 - Past Medical/Surgical History Diabetic: Yes -: HTN -: DM -: CA x3 -: P[place]um[place] -: CAD -: cardiac watchman -: Hyperlipidemia -: CHF -: AFIB -: Cataract sx -: appy -: bilat shoulder sx -: defib/pacemaker placement -: Bypass 1994 -: hemorroidectomy Psychosocial/ Personal History: Patient lives at home, alone - Family History Mother -: Heart disease Father -: Other (see notes) Notes: stroke oldest brother -: Other (see notes) Notes: heart attack - Social History Smoking Status: Unknown if ever smoked Alcohol use: No CD- Drugs: No Caffeine use: Yes Place of Residence: Home Review of Systems General: Unremarkable Respiratory: Cough, Shortness of Breath, SOB with Excertion, Other (chest congestion) Cardiovascular: Orthopnea Gastrointestinal: Unremarkable Genitourinary: Unremarkable Musculoskeletal: Unremarkable Integumentary: Unremarkable Neurological: Unremarkable Lymphatics: Unremarkable Physical Examination - Physical Exam General: Alert, Oriented x3, Cooperative HEENT: Atraumatic, PERRLA, Mucous membr. moist/pink, EOMI, Sclerae nonicteric Neck: Supple, 2+ carotid pulse no bruit, No LAD, Without JVD or thyroid abnormality Respiratory: Normal air movement, Diminished, Crackles/rales Cardiovascular: No edema, Normal S1 S2 Capillary refill: <2 Seconds Gastrointestinal: Soft and benign, No tenderness Musculoskeletal: No clubbing, No swelling, No tenderness Integumentary: Skin breakdown, Erythema Neurological: Normal speech, Normal tone, Normal affect Lymphatics: No axilla or inguinal lymphadenopathy - Studies Laboratory Data (last 24 hrs) 08/11/22 07:06: Sodium 137, Potassium 4.8, BUN 56 H, Creatinine 1.36 H, Glucose 175 H, Total Bilirubin 1.0, AST 16, ALT 29, Alkaline Phosphatase 118 H 08/11/22 07:06: WBC 13.40 H, Hgb 12.0 L, Hct 37.4 L, Plt Count 189 Assessment and Plan - Plan --Acute on chronic systolic CHF exacerbation. Cardiology consulted. Patient placed on diuresis with Lasix. Daily weight and strict I/O. We will await further recommendations from motor mechanic. --Acute pulmonary edema. Secondary to CHF exacerbation. Continue current treatment regimen. --Elevated troponin. Likely secondary to demand ischemia. We will continue to trend troponin levels. Telemetry to monitor for any significant arrhythmia. --DM2. BS monitoring with sliding scale insulin. --Hyperlipidemia. Continue statin. --History of CA and CAD. Continue aspirin and statin. --Atrial fibrillation. Patient has a watchman device in place. Telemetry to monitor for any malignant arrhythmia. --Presence of defibrillator\pacemaker. Patient reported experiencing firing of the defibrillator a couple days ago. Community Engagement Specialist on board. Telemetry to monitor for any malignant arrhythmia. Further management per cardiology. --GERD. Continue Protonix.. --Constipation. Patient reported not having a bowel movement in the last 12 days. Patient placed on laxatives. --Hypertension. Stable. Continue home medications. --Leukocytosis. Blood cultures pending. Will reassess levels in a.m. --DVT prophylaxis with heparin subQ. Discharge Plan: Home Plan to discharge in: 48 Hours - Advance Directives Does patient have a Living Will: No Does patient have a Durable POA for Healthcare: Yes - Code Status/Comfort Care Code Status Assessed: Yes Code Status: Full Code Physician Review: Patient Assessed, Agree with Above Assessment and Plan Critical Care: No
[2022-08-11] MEDS ORDERED: INSULIN -REGULAR HUMAN 50 UNIT/0.5 ML ML SQ SCH (11:30)
[2022-08-11 11:56] LABS: SARS-CoV-2 Antigen Rapid Res Negative (Negative)
--- NOTE | 2022-08-11 13:44 | EKG ---
Test Date: 2022-08-11 Test Time: 06:45:28 Emergency Room Registered Nurse: CLAIRE MEASUREMENT RESULTS: Intervals: Rate: 74 MS: QRSD: 128 QT: 406 QTc: 450 [place]: P: MS: QRS: -53 T: 122 INTERPRETIVE STATEMENTS: Ventricular-paced rhythm Abnormal ECG Compared to ECG 08/01/2022 11:35:34 No significant changes Electronically Signed On 08-11-22 13:43:16 FLATTENING MACHINE OPERATOR by Gary Cohen
[2022-08-11 14:19] VITALS: BMI 20.7
[2022-08-11 14:51] VITALS: TEMP 97.3
[2022-08-11 14:54] VITALS: O2SAT 95
--- NOTE | 2022-08-11 15:11 | RAD REPORT ---
EXAM DESCRIPTION: CT - Thorax Wo Con - 08/11/2022 1:07 pm CLINICAL HISTORY: SOB, R O PNA COMPARISON: Chest For Pe Angio dated 04/09/2022; Chest Single View dated 08/11/2022 TECHNIQUE: Axial 5 mm thick images of the chest were obtained without IV contrast. All CT scans are performed using dose optimization technique as appropriate and may include automated exposure control or mA/KV adjustment according to patient size. FINDINGS: Airspace ground-glass opacification seen throughout most of the left upper lobe. A few air bronchograms are seen. Interstitial and scattered alveolar opacities are present in the volume reduc ed left lower lobe. Patient has a moderate left pleural effusion. Interstitial and alveolar opacities are present in the right upper lobe. In the inferior aspect of the right upper lobe there is a 9 x 9 millimeter rounded pulmonary nodule. This measures larger than the April 2022 study. Moderately lar ge right pleural effusion is present with atelectasis and volume reduction of the right lower lobe. P atchy alveolar opacities are present in the right lower lobe as well. Numerous granulomatous calcific ations are seen. No pneumothorax. A few nonspecific reactive type mediastinal and hilar lymph nodes are present. Numerous granulomatous calcifications seen in the mediastinum in each hilum. No gross aortic or pulmonary artery finding castrejon spected. Cardiomegaly is present. Dense coronary artery calcifications are present. Pacemaker/defibr illator is in place. Left atrial appendage occlusive device is in place. No chest wall mass or abnormal axillary lymphadenopathy. IMPRESSION: Moderate bilateral pleural effusions are present with partial atelectasis of each lower lobe. Extensive airspace opacification is present in the left upper lobe. Interstitial thickening and patch y alveolar opacities are present elsewhere in the lung webb. The prominent asymmetric nature of the left upper lobe finding would suggest pneumonia rather than no ninfectious pulmonary edema.
[2022-08-11 15:42] LABS: Phosphorus 5.6 mg/dL (2.5-4.9); Thyroid Stimulating Hormone 1.97 uIU/mL (0.360-3.740)
[2022-08-11 15:43] LABS: Magnesium 2.4 mg/dL (1.8-2.4)
[2022-08-11 16:28] VITALS: BP 151/75
[2022-08-11] MEDS ORDERED: RSI MEDICATION KIT IV ONE (16:40)
[2022-08-11] MEDS ORDERED: HEPARIN/D5W 25,000 UNIT/500 ML BAG IV PRN (17:00)
[2022-08-11] MEDS ORDERED: D5W 250 ML BAG IV ONE (18:18)
[2022-08-11] MEDS ORDERED: EPINEPHrine 1 MG/10 ML SYR IV ONE ×2 (18:18)
[2022-08-11] MEDS ORDERED: Calcium Chloride 10% INJ SYR IV ONE (18:18)
[2022-08-11] MEDS ORDERED: AMIODARONE HCL 150 MG/3 ML INJ IV ONE (18:18)
[2022-08-11] MEDS ORDERED: SODIUM CHL 0.9% 1000 ML BAG IV ONE (18:18)
--- NOTE | 2022-08-11 18:40 | P.DS ---
Admission Date: 08/11/22 Discharge Date: 08/11/22 Disposition: Reason for Admission: CHF exacerbation - Problems (1) Acute on chronic systolic heart failure Status: Acute (2) NSTEMI (non-ST elevated myocardial infarction) Status: Acute (3) Presence of automatic cardioverter/defibrillator (AICD) Status: Acute (4) Diabetes mellitus Onset Date: 08/10/15 Status: Acute (5) Chronic atrial fibrillation Status: Acute Brief History of Present Illness: Patient is an 86-year-old male with a past medical history significant for hypertension, DM 2, ID, CAD, HLD, CHF, atrial fibrillation who presents with complaint of shortness of breath. Patient has been experiencing shortness of breath for the past couple of days but symptoms became worse yesterday. Patient reported associated signs and symptoms of cough, orthopnea and chest congestion. Patient reported that he has not had a bowel movement in 12 days. Patient denies any other signs and symptoms. Symptoms are aggravated by exertion and relieved by nothing. Patient decided to present to the hospital due to worsening symptoms. Of note, patient was seen at the hospital a week ago for similar symptoms and patient also complained that his defibrillator fired a couple of days ago. Hospital Course: Patient was admitted to medical floor with a diagnosis of CHF exacerbation and started on IV Lasix. His troponin trended up. Heparin drip was ordered for NSTEMI but patient developed agonal breathing and became pulseless. CODE BLUE was called and chest compressions started and intubated. Family was contacted who confirmed patient is DNR. The code was discontinued and patient . Vital Signs/Physical Exam: Temp Pulse Resp BP Pulse Ox 97.3 F 89 28 H 151/75 H 08/11/22 07:15 08/11/22 16:22 08/11/22 11:00 08/11/22 16:22 Laboratory Data at Discharge: WBC 13.40 K/uL (4.3-10.9) H 08/11/22 07:06 Hgb 12.0 g/dL (13.6-17.9) L 08/11/22 07:06 Hct 37.4 % (39.6-49.0) L 08/11/22 07:06 Plt Count 189 K/uL (152-406) 08/11/22 07:06 Sodium 137 mmol/L (136-145) 08/11/22 07:06 Potassium 4.8 mmol/L (3.5-5.1) 08/11/22 07:06 BUN 56 mg/dL (7-18) H 08/11/22 07:06 Creatinine 1.36 mg/dL (0.55-1.3) H 08/11/22 07:06 Glucose 175 mg/dL (74-106) H 08/11/22 07:06 Phosphorus 5.6 mg/dL (2.5-4.9) H 08/11/22 15:00 Magnesium 2.4 mg/dL (1.8-2.4) 08/11/22 15:00 Total Bilirubin 1.0 mg/dL (0.2-1.0) 08/11/22 07:06 AST 16 U/L (15-37) 08/11/22 07:06 ALT 29 U/L (12-78) 08/11/22 07:06 Alkaline Phosphatase 118 U/L (45-117) H 08/11/22 07:06 Home Medications: Aspirin 325 mg PO DAILY 04/08/22 Carvedilol [Coreg] 1 tab PO BID 04/08/22 Docusate [Colace Cap*] 1 cap PO BID 04/08/22 Glimepiride 1 mg PO DAILY 04/08/22 Lovastatin 40 mg PO BEDTIME 04/08/22 Omeprazole [Prilosec] 40 mg PO DAILY 04/08/22 Ranolazine [Ranexa] 500 mg PO BID 04/08/22 Furosemide [Lasix] 20 mg PO DAILY 30 Days #30 tab 04/11/22 Followup: NONE,NONE [Primary Care Provider] -
--- NOTE | 2022-08-11 19:45 | CON ---
Date of Consultation: 08/11/2022 Reason For Consultation: Congestive heart failure. History Of Present Illness: The patient is an 86-year-old male, known to have a history of coronary artery disease, history of diabetes, congestive heart failure, dyslipidemia, atrial fibrillation, pre sented with shortness of breath and orthopnea, became significantly worse and also had some cough and nasal congestion. The patient denies having any chest pain. Feels generally very weak. He has an ICD in place apparently, and he claimed that his device fired two days ago. Past Medical History: As outlined above in the HPI. Medications: Refer reconciliation sheet for detailed list. Allergies: SULFA. Family History: No premature coronary artery disease or cancer. Social History: He does not smoke or drink. He does not use any drugs. Review of Systems: All systems reviewed and they were negative except as mentioned in the HPI. Physical Examination: Vital Signs: Reviewed. Head And Neck: Pupils are equal, reactive to light. Intact eye movements. No JVD. No cervical lym phadenopathy. Neck: Supple. Thyroid is not enlarged. Lungs: Crackles at both lung bases with increased respiratory effort. Heart: Irregularly irregular. No extra sounds. Abdomen: Soft, nontender. Bowel sounds positive. No organomegaly. Extremities: No clubbing, cyanosis. Intact pulses. No edema. Skin: No rash. Neurologic: Alert, awake, oriented x3. No acute focal deficits appreciated. Investigations: BUN 56, creatinine 1.36. BNP 16,286. Troponin 66. The chest x-ray shows pulmonary edema. Assessment And Recommendation: 1.[id number] congestive heart failure exacerbation. The patient is severely fluid overloaded. Agree with Lasix at 40 mg IV q.12 hours. Monitor BUN and creatinine, electrolytes, and adjust diur etics according to his response. 2.Elevated troponin, he denies having any chest pain, but known to have history of coronary artery d isease. His last echocardiogram was done in April 11, 2022. The EF was 35% to 40%. So, please tren d 2 more sets of cardiac enzymes. This is likely demand ischemia and give one baby aspirin. 3.Hypertension. Continue home medications. SR/MODL Voice ID: [id number] Report ID: [id number]
[2022-08-11] MEDS ORDERED: ATORVASTATIN 20 MG TAB PO SCH (21:00)
[2022-08-12] MEDS ORDERED: ASPIRIN 81 MG CHEWABLE TABLET PO SCH (09:00)
== END 2022-08-11 18:19 | disposition expired ==
LOC: ER 06:01 → ERHOLD 08:15 → 4TH 13:26
PROVIDERS: ADMIT Internal Medicine; ATTEND Internal Medicine
PROC: 5A12012 Performance of Cardiac Output, Single, Manual (ICD-10-PCS; principal; 2022-08-11)
DX: I11.0 Hypertensive heart disease with heart failure (principal); I21.4 Non-ST elevation (NSTEMI) myocardial infarction; I50.23 Acute on chronic systolic (congestive) heart failure; J18.9 Pneumonia, unspecified organism; J96.01 Acute respiratory failure with hypoxia; I48.20 Chronic atrial fibrillation, unspecified; I46.9 Cardiac arrest, cause unspecified; E11.9 Type 2 diabetes mellitus without complications; K21.9 Gastro-esophageal reflux disease without esophagitis; K59.00 Constipation, unspecified; E78.5 Hyperlipidemia, unspecified; I25.10 Atherosclerotic heart disease of native coronary artery without angina pectoris; I25.2 Old myocardial infarction; Z66 Do not resuscitate; Z60.2 Problems related to living alone; Z88.1 Allergy status to other antibiotic agents; Z79.84 Long term (current) use of oral hypoglycemic drugs; Z79.82 Long term (current) use of aspirin; Z95.810 Presence of automatic (implantable) cardiac defibrillator; Z79.899 Other long term (current) drug therapy; Z20.822 Contact with and (suspected) exposure to COVID-19
CPT/HCPCS: 36415; 71045; 71250; 80053; 83735; 83880; 84100; 84439; 84443; 84484; 85025; 87811; 93005; 96374; 99285; J0171; J0282; J1644; J1940; J7030; J7060